=== PATIENT | female | born 1940 | race Caucasian/White ===

== ENCOUNTER 2018-01-09 08:30 | Outpatient (RCR) | payer MEDICARE, SELFPAY ==
--- NOTE | 2017-12-26 14:01 | PTTR_ITS ---
DATE: 12/26/17 SUBJECTIVE: Pt reports being very compliant with HEP; feels there are plenty of exercises at this time. Reports feeling much better overall, indicates that remaining discomfort is posterior shoulder. OBJECTIVE: Manual therapy: ([id number]). With patient in supine, PROM to right shoulder in all planes. Improvement noted vs. last session throughout flexion, rotations. AP, Inferior glides to glenohumeral joint. With pt in sidelying, STM to supraspinatus, infraspinatus, upper trap, rhomboids and lateral border of scapula. High tone, TPs noted in upper trap. With pt in supine, STM, TPR to cervical paraspinals, upper trap, levator scap, scalenes. Pt to follow up with Carole Cabrera DPT in 2 weeks for recheck. Direct treatment time: 30 minutes Total treatment time: 30 minutes
--- NOTE | 2018-01-09 08:30 | PN_ITS ---
DATE: 01/09/18 REFERRING: Chris Ramos MD REFERRING PROVIDER DIAGNOSIS: Bicep tendinopathy and L trochanteric bursitis. PHYSICAL THERAPY DIAGNOSIS: R biceps tendinopathy with scapular dyskinesia and soft tissue dysfunction. REPORTING PERIOD (for progress note and discharge note only): 10/27/17 to SUBJECTIVE: Susan states that her shoulder was feeling much better, although she has had several stresses in her life that has lead to her being less compliant with her HEP. She states her pain seems to have returned. She has not been regular with HEP for the last 2 weeks and during that time has noticed return of symptoms with activity. States that even doing light activity she gets increased pain through the back of the shoulder blade and front of the shoulder itself. Standardized Measures: * Disability Arm/Shoulder/Hand Score (DASH): 29% deficit OBJECTIVE: Posture: Patient demonstrates moderate rounded shoulder, forward head posturing which she self corrects throughout treatment session. No protective positioning of the R UE. Gait: Non-antalgic, non-ataxic. She is independent with bed mobility and transfers without modification. Palpation: Continued tenderness to palpation along the long head of the bicep tendon. She has significant soft tissue tightness noted through the R upper trap with pain reproduction noted here. ROM: Shoulder flexion allows 180 degrees bilaterally, functional IR allows thumb to T6 bilaterally with patient reporting pain through the anterior R shoulder. Passively, ROM is full through all planes of the R shoulder. Treatment: Manual Therapy [id number]: Today's session consisted of brief re- evaluation followed by long discussion regarding need for improved compliance for HEP, Patient received manual mobilization of the R shoulder with passive range through all planes on the R. She received cross friction massage to the long head of bicep tendon, followed by scapular framing techniques on the R. She received cross friction to the posterior capsule, and trigger point release to the R upper trap. She also received trigger point release to the infraspinatus with good tolerance. Post mobilization she has painfree shoulder flexion and IR. Treatment time: 30 mins ASSESSMENT: Patient is a 77 year old female who has been participating in PT intervention with 8 visits over the past 10 weeks. She has been weaning to a more independent HEP although unfortunately her compliance has suffered with this, which she relates to some social stresses. At her last appt, her pain had been extremely well managed with only minimal symptoms, when she was more compliant with her HEP. I had strongly encouraged her to improve compliance, although given her significant soft tissue findings today, I would like to follow up with her in a couple weeks to re-evaluate and progress accordingly, as she will likely require further mobilization as she progresses back to her HEP. G-Codes (add modifier after appropriate code): Patient demonstrates improved functional limitation is in the category of: * x Carrying, moving and handling objects: [id number], based on DASH of 29% deficit, projected goal status remains [id number] * ST: Improve functional reach with patient able to demonstrate consistent episodes of flexion to 135 degrees (MET) 2: Patient able to tolerate introduction of strengthening program without exacerbation of pain symptoms (MET) LT: Well managed pain symptoms allowing patient to transition to independent self management (Progressing towards) 2: Reduce pain with average VAS of less than 3/10. (Progressing towards) 3: Return to premorbid level of function. (Progressing towards) 4: Full painfree functional mobility. (Progressing towards) 5: Independent with self-maintenance program. (Progressing towards) PLAN: Re-check in 2 weeks, will plan to continue with visits 2x a month for an additional 4 weeks, with anticipate discharge to [facility] at that time. SS/dl *Dr. Ramos, please sign this updated progress note if you are in agreement with the continued POC ____ cc: Chris Ramos MD
== END 2018-01-20 23:59 | disposition home or self-care (01) ==
LOC: PT 08:30
PROVIDERS: PCP Internal Medicine; Referring Provider Physician Assistant; Visit Provider Physician Assistant
DX: M75.21 Bicipital tendinitis, right shoulder (principal); M79.89 Other specified soft tissue disorders
CPT/HCPCS: 97140

== ENCOUNTER 2018-02-17 14:39 | Outpatient (CLI) | payer MEDICARE, SELFPAY ==
[2018-02-17 15:02] LABS: HCT 41.8 % (36.0-46.0); HGB 13.2 g/dL (12.0-15.5); Mean Corp. HGB Concentration 31.6 g/dL (32.0-36.0); Mean Corpuscular Hemoglobin 29.7 pg (27.0-33.0); Mean Corpuscular Volume 94.1 fL (80-95); Mean Platelet Volume 10.1 fL (8.0-11.0); Platelet Count 221 x1000/uL (130-400); RBC 4.44 m/cumm (4.00-5.20); RBC Distribution Width 13.8 % (11.7-14.6); White Blood Cell Count 6.72 k/cumm (4.4-10.8)
[2018-02-17 15:41] LABS: ESR 27 MM/HR (0-30)
== END 2018-02-17 14:59 ==
PROVIDERS: PCP Internal Medicine; Visit Provider Internal Medicine
DX: R51 Headache (principal)
CPT/HCPCS: 36415; 85027; 85652

== ENCOUNTER → 2018-03-23 08:15 | Outpatient (BNVA) | payer MEDICARE, SELFPAY | PROVIDERS: PCP Internal Medicine; Visit Provider Psychiatry & Neurology Neurology | DX: R51 Headache (principal); G43.109 Migraine with aura, not intractable, without status migrainosus; M79.2 Neuralgia and neuritis, unspecified; I10 Essential (primary) hypertension | CPT/HCPCS: 99205; 99215 ==

== ENCOUNTER 2018-08-25 10:53 | Emergency (ER) | payer MEDICARE, SELFPAY ==
[2018-08-25 10:57] VITALS: BP 184/81; PULSE 62; RESP 18; TEMP 36.7; O2SAT 99
--- NOTE | 2018-08-25 11:25 | DI.RAD_ITS ---
SYMPTOMS/DIAGNOSIS: S/P CAT BITE, ? FOREIGN BODY VS FRACTURE RIGHT WRIST: Three views were obtained. No fracture is seen. No foreign body identified.
--- NOTE | 2018-08-25 11:26 | W.ED.GENAD ---
Discharge Plan Disposition Patient Disposition: HOME Condition: Stable Discharge Details Chief Complaint: Cellulitis Clinical Impression: Cellulitis, Cat bite Primary Care Provider: Pito Natarajan ED Provider: Joy Roland Home Meds and New Rx's Prescriptions: New amoxicillin-pot clavulanate [Augmentin] 875-125 mg tablet 1 tab PO BID Qty: 10 RF: 0 Continued venlafaxine [Effexor XR] 37.5 mg capsule,extended release 24hr 37.5 mg PO HS Qty: 30 RF: 5 simvastatin 10 MG tablet 10 mg PO DAILY RF: 0 lisinopril 20 MG tablet 20 mg PO DAILY RF: 0 diltiazem HCl 120 MG tablet 120 mg PO DAILY RF: 0 naproxen-diphenhydramine [Aleve PM] 1 EACH tablet 1 ea PO PRN Qty: 1 RF: 0 polyethylene glycol 3350 [Miralax] 17 GM powder in packet 17 gm PO PRN PRNRF: 0 celecoxib 100 MG capsule 100 mg PO BID Qty: 60 RF: 0 acetaminophen [Tylenol] 325 MG tablet 325 mg PO Q4H PRN RF: 0 metronidazole [MetroCream] 45 GM cream 45 gm Topical BID RF: 0 Discharge Instructions Instructions: Cellulitis (ED) Additional Instructions: Take the antibiotics until finished. Keep the area clean and dry. Follow-up with your primary care doctor on Tuesday for reevaluation. Return immediately to the emergency department any worsening or new concerning symptoms such as fever, increased pain, redness or swelling. Discharge Data Discharge Physician: Joy Roland Medical Decision Making 78-year-old female who presents with a mild cellulitis surrounding to puncture wounds from a cat bite sustained last night. Denies fever. Tetanus up-to-date 2014. There is a localized cellulitis surrounding the 2 puncture wounds but no obvious foreign body, abscess or bony injury. Neurovascularly intact. Will obtain a wrist x-ray to rule out foreign body versus fracture. 1200 --x-ray negative for fracture or foreign body. Will give a dose of Augmentin here and prescription for home. She is instructed to follow-up with a primary care doctor for reevaluation on Tuesday and to return here immediately if worse with any signs of fever, increased pain, redness or swelling. HPI General Mode of arrival: ambulatory. Date/Time Provider Initiated Documentation: 08/25/18 11:18. Limitations to Documentation: no limitations. Information obtained by: patient. HPI Narrative: Patient is a 78-year-old female who presents the ED with complaint of redness, swelling and pain near an area of her cat bite since last night. Patient states she was petting her cat when the cat bit her on her right wrist sustaining 2 puncture wounds. She states since then she has developed an area of redness, swelling and pain around the wounds. She is unsure of her tetanus status. She denies an allergy to penicillin. She denies any known foreign body. Related Data Home Medications Medication Instructions Recorded Confirmed simvastatin 10 mg PO DAILY tab-cap 12/20/14 03/23/18 lisinopril 20 mg PO DAILY tab-cap 03/21/15 03/23/18 diltiazem HCl 120 mg PO DAILY 10/01/15 03/23/18 naproxen-diphenhydramine [Aleve PM] 1 ea PO PRN #1 12/10/15 03/23/18 polyethylene glycol 3350 [Miralax] 17 gm PO PRN PRN gm 09/12/17 03/23/18 celecoxib 100 mg PO BID #60 cap 10/26/17 03/23/18 acetaminophen [Tylenol] 325 mg PO Q4H PRN tab-cap 01/18/18 03/23/18 metronidazole [MetroCream] 45 gm TOPICAL BID script 01/18/18 03/23/18 venlafaxine ER 37.5 mg 37.5 mg PO HS #30 cap 03/23/18 03/23/18 capsule,extended release 24 hr amoxicillin-pot clavulanate 1 tab PO BID #10 tab 08/25/18 [Augmentin] Previous Rx's Medication Instructions Recorded celecoxib 100 mg PO BID #60 cap 10/26/17 venlafaxine ER 37.5 mg 37.5 mg PO HS #30 cap 03/23/18 capsule,extended release 24 hr amoxicillin-pot clavulanate 1 tab PO BID #10 tab 08/25/18 [Augmentin] Allergies Allergy/AdvReac Type Severity Reaction Status Date / Time Sulfa (Sulfonamide Allergy Severe Anaphylaxsi Unverified 03/23/18 08:30 Antibiotics) s metoprolol Allergy Unknown UNKNOWN Unverified 03/23/18 08:30 aspirin AdvReac Unknown UNKNOWN Unverified 03/23/18 08:30 ibuprofen AdvReac Unknown UNKNOWN Unverified 03/23/18 08:30 General Stated Complaint: Cellulitis SHYANNE: 4 Review of Systems Review of Systems All systems reviewed & are unremarkable except as noted in HPI and below Constitutional Reports as per HPI, Denies chills and Denies fever(s) Eyes Denies blurry vision ENT Denies dizziness, Denies sore throat and Denies throat swelling Cardiovascular Denies chest pain and Denies dyspnea Respiratory Denies cough and Denies dyspnea Gastrointestinal Denies abdominal pain, Denies diarrhea and Denies vomiting Genitourinary Denies hematuria and Denies dysuria Musculoskeletal Denies back pain and Denies numbness Integumentary/Breasts Denies lesions, Denies rash and Reports other (puncture wounds R wrist) Neurologic Denies dizziness, Denies focal weakness and Denies numbness Allergic/Immunologic Denies throat swelling [facility] Medical History Neuralgia (Chronic) Migraine headache with aura (Chronic) Chronic daily headache (Chronic) Cataracts, bilateral (Acute) Mild cognitive impairment (Acute) GERD (gastroesophageal reflux disease) (Chronic) H/O: hysterectomy (Chronic) Hypertension (Chronic) Osteoarthritis (Chronic) Hyperlipemia Surgical History S/P carpal tunnel release (Acute) S/P cataract extraction (Acute) S/P eye surgery (Acute) Hiatal hernia (Chronic) Cholecystectomy Diaphragmatic Hernia Repair Trigger Finger release Family History Father Heart disease Hypertension Mother Diabetes Heart disease Hypertension Social History Smoking/Tobacco Use Status: Former Tobacco Use Alcohol Intake: never Details: DOES NOT DRINK Drug use: Never Substance use type: does not use Household members: spouse Housing: house 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[employer] What is your relationship status?: Panel score (0-1 are the most socially isolated patients): 1 Seatbelt use: always Do you feel safe at home: Yes Do you feel safe in your relationship?: Yes Exam Const General: cooperative, healthy appearing and no acute distress HENMT Head: normal to inspection Mouth: oral mucosae normal Eyes General: appearance normal, both eyes and all related structures Neck Neck: normal visual inspection Resp Effort & Inspection: normal respiratory effort and able to speak in complete sentences Cardio Rate: regular rate Skin General skin exam: no rashes or lesions noted Neuro General: alert, awake and oriented x3 Motor: muscle tone normal throughout Extrem Elbow/forearm/wrist images: 1. 2mm puncture wound 2. 1 mm puncture wound 3. Area of mild edema, erythema on dorsal medial distal forearm. No induration, fluctuance, drainage or bleeding Other: Right radial and ulnar pulses intact. No bony injury, significant pain with range of motion. Cap refill less than 2 seconds. Psych Appearance: grossly normal Affect: normal affect Course Vital Signs Temperature 98.1 F 08/25/18 10:57 Pulse 62 08/25/18 10:57 Respiratory Rate 18 08/25/18 10:57 Blood Pressure 184/81 H 08/25/18 10:57 Pulse Oximetry 99 08/25/18 10:57 Temperature 98.1 F 08/25/18 10:57 Temperature Source Temporal Artery Scan 08/25/18 10:57 Pulse 62 08/25/18 10:57 Respiratory Rate 18 08/25/18 10:57 Respiratory Effort Non-Labored 08/25/18 10:59 Blood Pressure 184/81 H 08/25/18 10:57 Blood Pressure Position Sitting 08/25/18 10:57 Pulse Oximetry 99 08/25/18 10:57 Oxygen Delivery Method Room Air 08/25/18 10:57 Oxygen Flow Rate 0 08/25/18 10:57 Pain Level 4 08/25/18 10:57
[2018-08-25] MEDS: Acetaminophen 325 MG TAB 650 MG PO (11:32)
[2018-08-25] MEDS: Amoxicillin 875/Clav. 125 TAB PO (12:30)
== END 2018-08-25 12:45 | disposition home or self-care (01) ==
PROVIDERS: Emergency Provider Physician Assistant; PCP Internal Medicine
DX: L03.113 Cellulitis of right upper limb (principal)
CPT/HCPCS: 99283; 73110

== ENCOUNTER → 2018-11-06 08:03 | Outpatient (BNVA) | payer MEDICARE, SELFPAY | PROVIDERS: PCP Internal Medicine; Referring Provider Internal Medicine; Visit Provider Student in an Organized Health Care Education/Training Program | DX: M75.41 Impingement syndrome of right shoulder (principal); M75.21 Bicipital tendinitis, right shoulder | CPT/HCPCS: 99213 ==

== ENCOUNTER 2018-11-08 00:36 | Outpatient (CLI) | payer MEDICARE, SELFPAY ==
--- NOTE | 2018-11-08 09:47 | DI.MRI_ITS ---
SYMPTOM/DIAGNOSIS: RT BICEP TENDONITIS RIGHT SHOULDER MRI: The study was conducted according to the usual protocol. There is an extensive full thickness tear of the supraspinatus tendon with just a few anterior and posterior fibers remaining. The defect measures up to 2.5 cm in transverse diameter with tendon retraction nearly to the level of the glenohumeral joint. Note is made of infraspinatus tendinopathy with irregular intersubstance tearing along the musculotendinous junction. The subscapularis reveals mild tendinopathy. The teres minor is intact. The biceps brachii and long head demonstrate mild tendinopathy superiorly near the glenoid insertion and otherwise intact. SUMMARY: The glenohumeral ligaments are well maintained. Note is made of mild blunting of the superior glenoid labrum suggesting degenerative and chronic tearing. There is mild glenohumeral chondromalacia with mild periarticular osteophyte formation. The glenohumeral joint reveals a small effusion. The muscles are unremarkable. There is a small quantity of fluid present in the subacromial and subdeltoid bursa. Moderate to marked acromioclavicular degenerative changes are demonstrated and productive and cystic changes are noted along the greater tuberosity where marrow edema could also be degenerative. Degenerative changes as described above. There is rotator cuff tendinopathy including extensive full thickness tear of the supraspinatus tendon. A small glenohumeral joint effusion communicating with a small fluid collection in the subacromial and subdeltoid bursa is identified. There is mild bicepital tendinopathy.
--- NOTE | 2018-11-08 16:27 | DI.VRAD_ITS ---
EXAM: MR Right Upper Extremity Joint Without Contrast, Shoulder EXAM DATE/TIME: 11/08/2018 9:40 AM CLINICAL HISTORY: 78 years old, female; Pain; Shoulder; Right; Patient HX: RT bicep tendonitis. TECHNIQUE: Imaging protocol: MR of the Right upper extremity without contrast. Exam focused on the shoulder. COMPARISON: CR RIGHT SHOULDER COMPLETE 04/12/2017 9:10 AM FINDINGS: Limitations: Mild motion. TENDONS: Supraspinatus: Extensive full-thickness tear involves much of the supraspinatus tendon, sparing some of the anterior and posterior fibers, with defect measuring up to 2.5 cm transverse, with tendon retraction nearly to the level of the glenohumeral joint. Infraspinatus: There is infraspinatus tendinopathy with irregular intrasubstance tearing along the musculotendinous junction. Subscapularis: There is mild subscapularis tendinopathy. Teres minor: Unremarkable. No evidence of tear. Biceps brachii, long head: The long head of the biceps tendon demonstrates mild tendinopathy superiorly near its glenoid insertion. It is otherwise intact and is in normal position. LIGAMENTS: Glenohumeral: Unremarkable. Glenoid labrum: Mild blunting of the superior glenoid labrum suggests degeneration and chronic tearing. Cartilage: There is mild glenohumeral chondromalacia with mild periarticular osteophyte formation. Fluid: There is a small effusion of the glenohumeral joint. Muscles: Unremarkable. Soft tissues: Small fluid is present in the subacromial, subdeltoid bursa. Bones/joints: There is moderate to marked acromioclavicular arthrosis. Productive and cystic changes are present along the greater tuberosity, where marrow edema could also be degenerative. IMPRESSION: 1. Degenerative changes as described. 2. Rotator cuff tendinopathy as described, including extensive full thickness tear of the supraspinatus tendon. 3. Small glenohumeral joint effusion communicating with small fluid in the subacromial, subdeltoid bursa. 4. Mild bicipital tendinopathy. Dictated and Authenticated by: Crow Stroud MD. Ordering:YASMINE Perez MD
== END 2018-11-08 00:56 ==
PROVIDERS: PCP Internal Medicine; Visit Provider Student in an Organized Health Care Education/Training Program
DX: M75.21 Bicipital tendinitis, right shoulder (principal); M75.101 Unspecified rotator cuff tear or rupture of right shoulder, not specified as traumatic; M94.211 Chondromalacia, right shoulder; M25.411 Effusion, right shoulder
CPT/HCPCS: 73221

== ENCOUNTER → 2018-11-13 08:26 | Outpatient (BNVA) | payer MEDICARE, SELFPAY | PROVIDERS: PCP Internal Medicine; Referring Provider Internal Medicine; Visit Provider Student in an Organized Health Care Education/Training Program | DX: M75.21 Bicipital tendinitis, right shoulder (principal); M75.101 Unspecified rotator cuff tear or rupture of right shoulder, not specified as traumatic; I10 Essential (primary) hypertension | CPT/HCPCS: 99214 ==

== ENCOUNTER 2019-01-04 00:12 | Outpatient (CLI) | payer MEDICARE, SELFPAY ==
--- NOTE | 2019-01-04 13:42 | MERGE_ITS ---
*[facility]* *[facility]* [address] [place] [address] Date of study: 01/04/2019 Transthoracic Echocardiography M-mode, complete 2D, complete spectral Doppler, and color Doppler *STUDY CONCLUSIONS* Summary: 1. Left ventricle: The cavity size was normal. Wall thickness was increased in a pattern of mild LVH. Systolic function was normal. The estimated ejection fraction was 55-60%. Wall motion was normal; there were no regional wall motion abnormalities. 2. Right ventricle: The cavity size was normal. Systolic function was normal. 3. Left atrium: The atrium was moderately dilated. 4. Aortic valve: Trileaflet; moderately thickened, mildly calcified leaflets. Valve mobility was restricted. Transvalvular velocity was increased. There was moderate stenosis. Peak velocity (S): 3.1m/sec. VTI ratio of LVOT to aortic valve: 0.35. Valve area (VTI): 1cm^2. 5. Inferior vena cava: The vessel was patent and normal in size. The respirophasic diameter changes were in the normal range (greater than or equal to 50%), consistent with normal central venous pressure. *PATIENT PRESENTATION* Height: 157.5cm (62in ) S/D Pressure: 110 / 62 Weight: 83.9kg (184.6lb ) BSA: 1.95m^2 Test start time: 02:10 PM. Test stop time: 03:00 PM. PERFORMING Unknown PERFORMING [facility] CONSULTING Ute Campos Aprn ORDERING Ute Campos Aprn REFERRING Ute Campos Aprn STEAM BOX HAND Kamille Resendez, (R)(CT), CS *PROCEDURE DATA* Procedure information: The patient was identified by two identifiers. This study was interpreted by [facility]. Pertinent images and digital data are archived for permanent storage and are available for subsequent review. Comparison was made to the study of 04/13/2017. Study status: Routine. Transthoracic echocardiography. M-mode, complete 2D, complete spectral Doppler, and color Doppler. A Transthoracic Echocardiogram was performed. Scanning was performed from the parasternal, apical, subcostal, and suprasternal notch acoustic windows. Images were obtained using an [id number] cardiac ultrasound machine. Image quality was adequate. Study completion: The patient tolerated the procedure well. There were no complications. History: PMH: Aortic stenosis i35.0 *CARDIAC ANATOMY* Left ventricle: The cavity size was normal. Wall thickness was increased in a pattern of mild LVH. Systolic function was normal. The estimated ejection fraction was 55-60%. Wall motion was normal; there were no regional wall motion abnormalities. Findings consistent with diastolic dysfunction. There was no evidence of elevated ventricular filling pressure by Doppler parameters. Aortic valve: Trileaflet; moderately thickened, mildly calcified leaflets. Valve mobility was restricted. Doppler: Transvalvular velocity was increased. There was moderate stenosis. There was no significant regurgitation. VTI ratio of LVOT to aortic valve: 0.35. Valve area (VTI): 1cm^2. Indexed valve area (VTI): 0.5cm^2/m^2. Peak velocity ratio of LVOT to aortic valve: 0.35. Valve area (Vmax): 1cm^2. Indexed valve area (Vmax): 0.5cm^2/m^2. Mean velocity ratio of LVOT to aortic valve: 0.36. Valve area (Vmean): 1cm^2. Indexed valve area (Vmean): 0.5cm^2/m^2. Mean gradient (S): 22.7mm Hg. Peak gradient (S): 37.9mm Hg. Aorta: Aortic root: The aortic root was normal in size. Ascending aorta: The ascending aorta was normal in size. Mitral valve: Structurally normal valve. Mobility was not restricted. Doppler: Transvalvular velocity was within the normal range. There was no evidence for stenosis. There was trivial regurgitation. Valve area by pressure half-time: 4.5cm^2. Indexed valve area by pressure half-time: 2.3cm^2/m^2. Peak gradient (D): 3.2mm Hg. Left atrium: The atrium was moderately dilated. Right ventricle: The cavity size was normal. Systolic function was normal. Pulmonic valve: The pulmonary valve appears to be grossly normal. Doppler: Transvalvular velocity was within the normal range. There was no evidence for stenosis. There was trivial regurgitation. Peak gradient (S): 4.8mm Hg. Tricuspid valve: Structurally normal valve. Doppler: Transvalvular velocity was within the normal range. There was no evidence for stenosis. There was mild regurgitation. Pulmonary artery: Poorly visualized. Pulmonary systolic pressure was within the normal range, in the range of 30mm Hg to 35mm Hg. Right atrium: The atrium was dilated. Pericardium: There was no pericardial effusion. Systemic veins: Inferior vena cava: Well visualized. The vessel was patent and normal in size. The respirophasic diameter changes were in the normal range (greater than or equal to 50%), consistent with normal central venous pressure. Baseline ECG: Normal sinus rhythm. Measurements Left ventricle Value 04/13/2017 Reference LV ID, ED, PLAX 4.6 cm 4.4 3.5 - 6.0 LV ID, ES, PLAX 3.0 cm 2.7 2.1 - 4.0 LV PW thickness, ED, PLAX 1.1 cm 1.1 LV end-diastolic volume, 58 ml 66 1-p A2C LV ejection fraction, 1-p 51 % 67 A2C LV end-diastolic volume, 66 ml 73 1-p A4C LV ejection fraction, 1-p 55 % 54 A4C LV e', lateral 0.082 m/sec LV E/e', lateral 11 LV e', medial 0.073 m/sec LV E/e', medial 12 LV e', average 0.077 m/sec LV E/e', average 12 Ventricular septum Value 04/13/2017 Reference IVS thickness, ED, PLAX 1.2 cm 1.1 LVOT Value 04/13/2017 Reference LVOT ID, A-P 1.9 cm 1.9 LVOT area 2.9 cm^2 2.9 LVOT peak velocity, S 1.07 m/sec 0.9 LVOT mean velocity, S 0.83 m/sec LVOT VTI, S 28.8 cm 23.2 LVOT peak gradient, S 4.6 mm Hg LVOT mean gradient, S 3 mm Hg 1.8 Stroke volume (SV), LVOT 83 ml 66 DP Stroke index (SV/bsa), 42 ml/m^2 34 LVOT DP Aortic valve Value 04/13/2017 Reference Aortic valve peak 3.1 m/sec 2.3 velocity, S Aortic valve mean 2.3 m/sec 0 velocity, S Aortic valve VTI, S 81.0 cm Aortic mean gradient, S 22.7 mm Hg 12.2 Aortic peak gradient, S 37.9 mm Hg 21.5 VTI ratio, LVOT/AV 0.35 0.37 Aortic valve area, VTI 1 cm^2 1.1 Velocity ratio, peak, 0.35 0.39 LVOT/AV Aortic valve area, peak 1 cm^2 1.1 velocity Velocity ratio, mean, 0.36 LVOT/AV Aortic valve area, mean 1 cm^2 velocity Aortic valve area/bsa, 0.5 cm^2/m^2 mean velocity Aorta Value 04/13/2017 Reference Aortic root ID, ED 2.7 cm 2.8 Ascending aorta ID, A-P, S 3.3 cm 3.3 Left atrium Value 04/13/2017 Reference LA ID, A-P, ES 4.5 cm LA ID/bsa, A-P (H) 2.3 cm/m^2 <=2.2 LA volume/bsa, ES, 1-p A4C 48 ml/m^2 41 LA volume, ES, 2-p 79 ml LA volume/bsa, ES, 2-p 40 ml/m^2 LA/aortic root ratio 1.7 1.62 Mitral valve Value 04/13/2017 Reference Mitral E-wave peak 0.9 m/sec 0.87 velocity Mitral A-wave peak 0.77 m/sec 0.69 velocity Mitral deceleration time 167 ms 161 150 - 230 Mitral pressure half-time 49 ms 47 Mitral peak gradient, D 3.2 mm Hg 3.1 Mitral E/A ratio, peak 1.17 1.27 Mitral valve area, PHT, DP 4.5 cm^2 4.7 Pulmonary veins Value 04/13/2017 Reference Pulmonary vein peak 0.56 m/sec 0.49 velocity, S Pulmonary vein peak 0.47 m/sec 0.51 velocity, D Pulmonary vein velocity 1.19 0.96 ratio, peak, S/D Pulmonary vein A-wave 0.26 m/sec 0.27 reversal peak velocity Tricuspid valve Value 04/13/2017 Reference Tricuspid regurg peak 2.8 m/sec 2.8 velocity Tricuspid peak RV-RA 31.4 mm Hg 32.2 gradient Right atrium Value 04/13/2017 Reference RA area, ES, A4C (H) 23.2 cm^2 23 8.3 - 19.5 Pulmonic valve Value 04/13/2017 Reference Pulmonic peak gradient, S 4.8 mm Hg 2.4 Legend: (L) and (H) swetha values outside specified reference range. I have personally reviewed the images and have reviewed and edited the reported findings. Electronically signed by Bonnie Staton 01/04/2019 15:38
== END 2019-01-04 00:32 ==
PROVIDERS: PCP Internal Medicine; Visit Provider Nurse Practitioner Primary Care
DX: I35.0 Nonrheumatic aortic (valve) stenosis (principal); I51.7 Cardiomegaly
CPT/HCPCS: 93306

== ENCOUNTER 2019-01-26 10:58 | Outpatient (REF) | payer MEDICARE, SELFPAY ==
[2019-01-26 13:56] LABS: Anion Gap 11.2 mmol/L (3-11); BUN 18 mg/dL (7-18); CO2 26.8 mmol/L (21.0-32.0); CREATININE 1.05 mg/dL (0.55-1.02); Calcium 9.9 mg/dL (8.5-10.1); Calculated LDL 83 mg/dL; Chloride 105 mmol/L (98-107); Cholesterol 209 mg/dL (50-200); Estimated GFR 50.95 (mL/min/1.73m2); Glucose 105 mg/dL (70-100); HDL Cholesterol 69 mg/dL (40-60); Sodium 143 mmol/L (136-145); Triglyceride 287 mg/dL (30-150)
== END 2019-01-26 11:18 ==
LOC: NCHCN 10:58
PROVIDERS: PCP Internal Medicine; Visit Provider Internal Medicine
DX: I10 Essential (primary) hypertension (principal); E78.5 Hyperlipidemia, unspecified; R09.89 Other specified symptoms and signs involving the circulatory and respiratory systems; I35.0 Nonrheumatic aortic (valve) stenosis; G47.33 Obstructive sleep apnea (adult) (pediatric)
CPT/HCPCS: 80048; 80061

== ENCOUNTER 2019-01-31 10:50 | Day surgery (SDC) | payer MEDICARE, SELFPAY ==
[2019-01-31] VITALS (9 sets, daily range): BP systolic 111–163; BP diastolic 46–73; PULSE 57–74; RESP 12–20; TEMP 35.7–36.8; O2SAT 93–98
[2019-01-31] MEDS: Lactated Ringers 1,000 ML 80 ML IV (11:31)
[2019-01-31] MEDS: ceFAZolin 2 GM/50 ML BAG IVPB (13:35)
--- NOTE | 2019-01-31 15:25 | W.PM.DSUDISC ---
Discharge Plan Disposition Patient Disposition: HOME Condition: Good Discharge Details Reason For Visit: (R) RTC TEAR Attending Provider: Chris Ramos Primary Care Provider: Pito Natarajan [place] Meds and New Rx's Prescriptions: New acetaminophen 500 mg tablet 500 mg PO Q6H PRN (Reason: pain) Qty: 60 RF: 3 oxycodone 5 mg tablet 5 mg PO Q6H PRN (Reason: severe post-operative pain) Qty: 12 RF: 0 Continued venlafaxine [Effexor XR] 37.5 mg capsule,extended release 24hr 37.5 mg PO HS Qty: 30 RF: 5 simvastatin 10 MG tablet 20 mg PO DAILY RF: 0 lisinopril 20 MG tablet 20 mg PO HS RF: 0 diltiazem HCl 120 MG tablet 120 mg PO HS RF: 0 Aleve PM 1 EACH tablet 1 ea PO PRN Qty: 1 RF: 0 acetaminophen [Tylenol] 325 MG tablet 325 mg PO Q4H PRN RF: 0 naproxen 500 mg tablet 500 mg PO BID PRN (Reason: pain) Qty: 60 RF: 0 tramadol 50 mg tablet 50 mg PO BID PRN (Reason: pain) Qty: 10 RF: 0 ascorbic acid (vitamin C) 500 mg Capsule 500 mg PO DAILY RF: 0 Discharge Instructions Stand Alone Forms: Rachel casanova/RCR Referrals: Chris Ramos MD [ [facility] STAFF PHYSICIAN] - Equipment/Supplies: Sling Activity:: In sling except for hygiene and pendulums Remove Dressings/Wound Care:: 72 hours Shower/Bathe:: 72 hours Diet:: As Tolerated Discharge Orders Discharge Orders: Discharge Order (Routine); Ordered 01/31/19 Ordered By: Selena Zapata DS: Diagnosis Discharge Diagnosis (1) Right rotator cuff tear: Status: Acute (2) Biceps tendinitis of right shoulder: Status: Acute (3) Subacromial impingement of right shoulder: Status: Acute
--- NOTE | 2019-01-31 21:23 | ROE_ITS ---
Date of service: 01/31/19 Time of Service: 15:49 Operative Note Operative Note DATE OF PROCEDURE: 01/31/19 PRE-OP DIAGNOSIS: Right Rotator Cuff Tear, Right Biceps Tear POST-OP DIAGNOSIS: same PROCEDURE: - Arthroscopic Rotator Cuff Repair - Subacromial Debridement with Acromioplasty SURGEON: Chris Ramos MANUFACTURING PROCESS ENGINEER: Selena Zapata ANESTHESIA: GETA and regional ESTIMATED BLOOD LOSS: 0 PATHOLOGY: none sent COMPLICATIONS: None Patient was transported to: PACU Patient's condition: stable Indications: I have seen Abiola in clinic for a painful shoulder. Pathology was confirmed based on MRI and exam findings. Nonoperative measures were exhausted but disability and pain persisted. I discussed shoulder arthroscopy and procedures. I reviewed the risks of the procedures to include, but not limited to, bleeding, infection, pain, stiffness, damage to nerves or vessels, recurrence, hardware failure, blood clot. Despite these risks, the patient elected to proceed. Findings: A diagnostic arthroscopy was performed with the following findings: - Glenohumeral Joint: No major arthritic changes - Labrum: Minor fraying at the superior labrum - Cuff: Upper subscapularis tear, Complete tear of the supraspinatus and the anterior infraspinatus - Biceps: Partial tearing - Subacromial: Complete rotator cuff tear and large anterolateral spur with a lateral ridge of the acromion Procedure Description: Abiola was greeted in the preoperative holding area where the correct side was identified and marked. The consent was reviewed with the patient and signed. The history and physical was updated. All questions were answered. Abiola was taken back to the PACU for administration of an intrascalene nerve block. She was then taken to the operating room. The patient was placed into the supine position on the operating room table. A general anesthetic was administered. She was then positioned in the beach chair position. All bony prominences were well padded. The head was placed in a foam head buyer tobacco in a neutral position. Prophylactic antibiotics in the form of cefazolin were administered. The right arm/shoulder was then prepped with Chloraprep and draped in a standard fashion with stockinette and shoulder drape. A timeout to confirm correct identity, side and site, procedure, allergies, anesthesia, and medical concerns was performed. The arm was placed into a pneumatic narvaez, [id number]. The shoulder arthroscopy was then performed. The glenohumeral joint was injected with 20 cc of normal saline with good flow back. A standard posterior portal was made and the joint was entered atraumatically with a blunt arthroscope. Once inside we had good visualization of the structures of the glenohumeral joint. An anterior portal was established with spinal needle localization. A 6.5 mm cannula was inserted. A probe was then used to perform a diagnostic arthroscopy. There is noted to be no significant cartilage damage of the glenoid humeral joint. The labrum was frayed superiorly but no gross labral tearing. There were no loose bodies in the inferior pouch. The superior rotator cuff was completely torn with retraction to just lateral of the glenoid. The biceps tendon had some tearing at the level of the groove along with inflammatory changes. The subscapularis was torn superiorly along with the attachment of the coracohumeral ligament. Using electrocautery device and performed a biceps tenotomy. I also uses to help contour the labrum. Shaver was also used to debride any fraying of the labrum into the undersurface of the rotator cuff. Focusing anteriorly, I debrided the tearing of the subscapularis and the exposed footprint on the lesser tuberosity. Using a spinal needle I established an anterolateral portal and placed a 7.5 mL cannula. Using a tissue grasper from this anterolateral portal I was able to mobilize the subscapularis back down on the left tuberosity reapproximating the coracohumeral ligament back to his position over the lateral lesser tuberosity. Therefore, I placed a single 4.5 mm Mitek Healix anchor within the lesser tuberosity. 2 horizontal mattress sutures were then placed with in the subscapularis. This helped reduce the subscapularis back down to the lesser tuberosity. After these were passed they were tied anteriorly. The arthroscope was then inserted into the subacromial space. The 6.5 mm cannula was placed lateral to the CA ligament. There is noted to be a significant anterolateral spike of the acromion which made entering the subacromial space quite difficult from the anterior portal but also laterally with a lateral ridge of her acromion. A posterior lateral viewing portal was then established. A complete bursectomy is performed anteriorly, posteriorly, and laterally with electrocautery and shaver. This had excellent exposure of the rotator cuff. The bursal side rotator cuff was inspected and showed a reverse L type rotator cuff tear involving all the supra spinatus and a portion of infraspinatus. There was a large anterolateral spur. Tissue liberator was used to help free up any attachments between the rotator cuff and the labrum and superior glenoid. 2 medial anchors were then placed. These were Depuy Mitek 4.5 mm Healix anchors. Using a retrograde suture passer then placed 4 horizontal mattress sutures into the tendon. There is a focus to move posterior to anterior to reduce the reverse L-type tear back onto the footprint. Once these were placed they were tied sequentially. This was done using standard arthroscopic knot tying techniques and this adequately reduced the tendon back down to the footprint. There is no exposed joint at this time. There was a free edge of tendon remaining so therefore I plan to place lateral row. One suture limb from each suture was pulled into a lateral anchor and 2 lateral anchors were placed. These are tension in place appropriately so that the suture bridge was laying on top of the rotator cuff free edge. All the sutures were cut. A 5.0 mm earnest was then inserted from the posterior portal. The anterolateral corner of the acromion was then resected in plane with the posterior slope of the acromion. The scope equipment was removed from the shoulder. Excess fluid was evacuated. The portal sites were closed with 3-0 Monocryl. The wounds were dressed with Steri-Strips, 4 x 4's, ABDs, Medipore tape. A sling was applied. The patient tolerated the procedure well and was returned to the Same Day Surgery area in a stable condition suffering no known complication.
== END 2019-01-31 18:32 | disposition home or self-care (01) ==
PROVIDERS: PCP Internal Medicine; Visit Provider Student in an Organized Health Care Education/Training Program
PROC: (CPT 29827; principal; 2019-01-31 13:30)
DX: M75.21 Bicipital tendinitis, right shoulder (principal); M75.121 Complete rotator cuff tear or rupture of right shoulder, not specified as traumatic; G89.18 Other acute postprocedural pain; I10 Essential (primary) hypertension; I35.0 Nonrheumatic aortic (valve) stenosis
CPT/HCPCS: 29827; 29826; C1713; J0690; J2250; J3010; L3670

== ENCOUNTER → 2019-02-12 12:33 | Outpatient (BNVA) | payer MEDICARE, SELFPAY | PROVIDERS: PCP Internal Medicine; Referring Provider Internal Medicine; Visit Provider Student in an Organized Health Care Education/Training Program | DX: Z47.89 Encounter for other orthopedic aftercare (principal); M25.511 Pain in right shoulder; I10 Essential (primary) hypertension ==

== ENCOUNTER → 2019-03-12 09:47 | Outpatient (BNVA) | payer MEDICARE, SELFPAY | PROVIDERS: PCP Internal Medicine; Referring Provider Internal Medicine; Visit Provider Student in an Organized Health Care Education/Training Program | DX: Z47.89 Encounter for other orthopedic aftercare (principal); M25.511 Pain in right shoulder; I10 Essential (primary) hypertension ==

== ENCOUNTER → 2019-04-23 08:26 | Outpatient (BNVA) | payer MEDICARE, SELFPAY | PROVIDERS: PCP Internal Medicine; Referring Provider Internal Medicine; Visit Provider Student in an Organized Health Care Education/Training Program | DX: Z47.89 Encounter for other orthopedic aftercare (principal); M25.511 Pain in right shoulder ==

== ENCOUNTER 2019-06-01 12:50 | Outpatient (REF) | payer MEDICARE, SELFPAY ==
[2019-06-01 20:57] LABS: Calculated LDL 101 mg/dL; Cholesterol 213 mg/dL (<200); HDL Cholesterol 82 mg/dL (40-60); Triglyceride 150 mg/dL (<150)
== END 2019-06-01 13:10 ==
LOC: NCHCN 12:50
PROVIDERS: PCP Internal Medicine; Visit Provider Internal Medicine
DX: E78.5 Hyperlipidemia, unspecified (principal)
CPT/HCPCS: 80061

== ENCOUNTER → 2019-07-02 09:31 | Outpatient (BNVA) | payer MEDICARE, SELFPAY | PROVIDERS: PCP Internal Medicine; Referring Provider Internal Medicine; Visit Provider Student in an Organized Health Care Education/Training Program | DX: Z47.89 Encounter for other orthopedic aftercare (principal) | CPT/HCPCS: 99212 ==

== ENCOUNTER 2019-07-15 15:26 | Emergency (ER) | payer MEDICARE, SELFPAY ==
[2019-07-15 15:29] VITALS: BP 190/73; PULSE 73; RESP 17; TEMP 37.1; O2SAT 98
[2019-07-15 15:50] LABS: Bilirubin Negative (Negative); Blood Large (Negative); Clarity Cloudy (Clear); Glucose Negative (Negative); Ketones Negative (Negative); Leukocyte Esterase Small (Negative); Nitrite Negative (Negative); pH 7.5 (5-8)
--- NOTE | 2019-07-15 15:54 | ED.GENADUL_ITS ---
Discharge Plan Discharge Details Chief Complaint: Urinary Primary Care Provider: Pito Natarajan ED Provider: Derek Quevedo Home Meds and New Rx's Prescriptions: No Action simvastatin 10 MG tablet 20 mg PO DAILY RF: 0 lisinopril 20 MG tablet 20 mg PO HS RF: 0 diltiazem HCl 120 MG tablet 120 mg PO HS RF: 0 Aleve PM 1 EACH tablet 1 ea PO PRN Qty: 1 RF: 0 acetaminophen [Tylenol] 325 MG tablet 325 mg PO Q4H PRN RF: 0 naproxen 500 mg tablet 500 mg PO BID PRN (Reason: pain) Qty: 60 RF: 0 ascorbic acid (vitamin C) 500 mg Capsule 500 mg PO DAILY RF: 0 acetaminophen 500 mg tablet 500 mg PO Q6H PRN (Reason: pain) Qty: 60 RF: 3 Medical Decision Making This is a delightful 79-year-old female presents from home with day 2 of urinary frequency, urgency, burning. She is afebrile, slightly hypertensive with a history of same. Her exam is reassuring. Urinalysis consistent with urinary tract infection. I will place her on a course of antibiotics. Discussed with her the use of Pyridium. She is stable and improving. Lab Data Lab results reviewed: Yes I reviewed the patient's lab results. Labs: Laboratory Results - last 24 hr 07/15/19 15:40 Urine Color Yellow Urine Clarity Cloudy Urine pH 7.5 Ur Specific [place] 1.020 Urine Protein 100 H Urine Ketones Negative Urine Blood Large H Urine Nitrite Negative Urine Bilirubin Negative Urine Urobilinogen 2.0 H Ur Leukocyte Esterase Small H Urine RBC >50 H Urine WBC 20-50 H Ur Epithelial Cells Negative Urine Crystals Negative Urine Bacteria Rare Urine Mucus Negative Urine Other Few transitional Ur Culture Indicated? Yes Urine Glucose Negative HPI General Mode of arrival: ambulatory . Date/Time Provider Initiated Documentation: 07/15/19 15:30 . Limitations to Documentation: no limitations . Information obtained by: patient and family . History of Present Illness 79 year old F presents to the emergency department with the chief complaint of 2 days urinary urgency, frequency, burning, and is localized to the pelvis. Patient reports no radiation. Patient started experiencing this day(s) and it has been constant. No relieving factors improve symptom(s), No exacerbating factors reported . Patient notes denies fever/chills and nausea/vomiting. Patient did receive the following treatments prior to a rrival, none Related Data Home Medications Medication Instructions Recorded Confirmed simvastatin 20 mg PO DAILY tab-cap 12/20/14 07/15/19 lisinopril 20 mg PO HS tab-cap 03/21/15 07/15/19 diltiazem HCl 120 mg PO HS 10/01/15 07/15/19 Aleve PM 1 ea PO PRN #1 12/10/15 07/02/19 acetaminophen [Tylenol] 325 mg PO Q4H PRN tab-cap 01/18/18 07/02/19 naproxen 500 mg tablet 500 mg PO BID PRN #60 tab 12/05/18 07/02/19 ascorbic acid (vitamin C) 500 mg PO DAILY 01/30/19 07/02/19 acetaminophen 500 mg PO Q6H PRN #60 tab 01/31/19 07/15/19 Previous Rx's Medication Instructions Recorded naproxen 500 mg tablet 500 mg PO BID PRN #60 tab 12/05/18 acetaminophen 500 mg PO Q6H PRN #60 tab 01/31/19 Allergies Allergy/AdvReac Type Severity Reaction Status Date / Time Sulfa (Sulfonamide Allergy Severe Anaphylaxsi Unverified 07/15/19 15:34 Antibiotics) s metoprolol Allergy Unknown UNKNOWN Unverified 07/15/19 15:34 aspirin AdvReac Unknown UNKNOWN Unverified 07/15/19 15:34 ibuprofen AdvReac Unknown UNKNOWN Unverified 07/15/19 15:34 General Stated Complaint: Urinary SHYANNE: 4 Review of Systems Narrative: No vomiting, no back pain, no noted fever. 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 Pleasant, well groomed, interactive. HEAD: Normocephalic, atraumatic ENT: Mucous membranes moist, oropharynx unremarkable, External ear exam unremarkable EYES: PERRL, EOMI NECK: Full ROM, no STEPH, no menigismus CHEST/RESP: Nontender, clear to auscultation bilateral, no wheeze/rhonchi/rales CARDIOVASCULAR: RRR, no murmur, rub eyal. 2+ Rad pulse bilateral ABDOMEN: Soft, nontender, no mass. +Bowel sounds. No significant flank tenderness on percussion. EXT: Full ROM, no edema, no rash Neuro: Grossly normal neurologic exam, conversant, interactive. Psych: Speech fluent, thoughts congruent, affect normal Course Vital Signs Vital signs: Vital Signs Temperature 37.1 C 07/15/19 15:29 Pulse 73 07/15/19 15:29 Respiratory Rate 17 07/15/19 15:29 Blood Pressure 190/73 H 07/15/19 15:29 Pulse Oximetry 98 07/15/19 15:29 Temperature 37.1 C 07/15/19 15:29 Temperature Source Skin 07/15/19 15:29 Pulse 73 07/15/19 15:29 Respiratory Rate 17 07/15/19 15:29 Respiratory Effort 07/15/19 15:35 Blood Pressure 190/73 H 07/15/19 15:29 Blood Pressure Position Sitting 07/15/19 15:29 Pulse Oximetry 98 07/15/19 15:29 Oxygen Delivery Method Room Air 07/15/19 15:29 Oxygen Flow Rate 0 07/15/19 15:29 Pain Level 10 07/15/19 15:43
[2019-07-15 15:59] LABS: Bacteria Rare HPF (Negative); C & S Indicated? Yes; Crystals Negative HPF (Negative); Epithelial Cells Negative HPF (Negative); Mucus Negative (Negative); Other Cells Few Transitional (Negative); RBC >50 HPF (0-2); WBC 20-50 HPF (0-5)
[2019-07-15] MEDS: Cephalexin 500 MG CAP PO (16:08)
[2019-07-15] MEDS: Phenazopyridine 100 MG TAB, 2 TABS/BTL PO (16:09)
== END 2019-07-15 16:20 | disposition home or self-care (01) ==
PROVIDERS: Emergency Provider Emergency Medicine; PCP Internal Medicine
DX: R35.0 Frequency of micturition (principal); N39.0 Urinary tract infection, site not specified; I10 Essential (primary) hypertension
CPT/HCPCS: 87077; 99283; 81003; 81015; 87086; 87186

== ENCOUNTER 2019-09-26 09:39 | Outpatient (CLI) | payer MEDICARE, SELFPAY ==
[2019-09-27 15:52] LABS: COVID-19 RT-PCR UVMMC Result Negative (Negative)
== END 2019-09-26 09:59 ==
PROVIDERS: PCP Internal Medicine; Visit Provider Internal Medicine
DX: Z03.818 Encounter for observation for suspected exposure to other biological agents ruled out (principal)
CPT/HCPCS: U0003

== ENCOUNTER 2019-10-01 12:06 | Outpatient (REF) | payer MEDICARE, SELFPAY ==
[2019-10-01 21:11] LABS: Abs Immature Grans 0.01 k/cumm (0.0-0.09); Absolute Basophil Count 0.01 k/cumm (0.0-0.2); Absolute Eosinophil Count 0.05 k/cumm (0.0-0.7); Absolute Lymphocyte Count 2.17 k/cumm (1.2-3.4); Absolute Monocyte Count 0.57 k/cumm (0.11-0.7); Absolute Neutrophil Count 3.02 k/cumm (1.2-6.7); Basophils % 0.2; Eosinophils % 0.9; HCT 43.6 % (36.0-46.0); HGB 13.9 g/dL (12.0-15.5); Immature Grans % 0.2 %; Lymphocytes % 37.2; Mean Corp. HGB Concentration 31.9 g/dL (32.0-36.0); Mean Corpuscular Hemoglobin 29.5 pg (27.0-33.0); Mean Corpuscular Volume 92.6 fL (80-95); Mean Platelet Volume 10.9 fL (8.0-11.0); Monocytes % 9.8; Neutrophils % 51.7; Platelet Count 263 x1000/uL (130-400); RBC 4.71 m/cumm (4.00-5.20); RBC Distribution Width 14.3 % (11.7-14.6); White Blood Cell Count 5.83 k/cumm (4.4-10.8)
[2019-10-01 21:31] LABS: ALT 26 U/L (14-59); AST 22 U/L (15-37); Albumin 3.9 g/dL (3.4-5.0); Alkaline Phosphatase 109 U/L (46-116); Anion Gap 5.5 mmol/L (3-11); BUN 23 mg/dL (7-18); Bilirubin, Total 0.4 mg/dL (0.2-1.0); CO2 29.5 mmol/L (21.0-32.0); CREATININE 1.18 mg/dL (0.55-1.02); Calcium 9.6 mg/dL (8.5-10.1); Chloride 103 mmol/L (98-107); Creatine Kinase 130 U/L (26-192); Estimated GFR 44.42 (mL/min/1.73m2); Glucose 96 mg/dL (74-106); NT-proBNP 290 pg/mL (<300); Potassium 4.4 mmol/L (3.5-5.1); Sodium 138 mmol/L (136-145); TSH 2.11 uIU/mL (0.36-3.74); Total Protein 7.4 g/dL (6.4-8.2)
[2019-10-01 21:54] LABS: ESR 35 mm/hr (0-30)
== END 2019-10-01 12:26 ==
LOC: NCHCN 12:06
PROVIDERS: PCP Internal Medicine; Visit Provider Internal Medicine
DX: R53.83 Other fatigue (principal); R06.09 Other forms of dyspnea; G43.909 Migraine, unspecified, not intractable, without status migrainosus; M79.10 Myalgia, unspecified site
CPT/HCPCS: 80053; 82550; 85652; 83880; 84443; 85025

== ENCOUNTER 2019-12-26 03:12 | Outpatient (CLI) | payer MEDICARE, SELFPAY ==
--- NOTE | 2019-12-26 10:26 | DI.US_ITS ---
APPROVED REPORT EXAM: Comprehensive 2D, Doppler, and color-flow Echocardiogram Patient Location: Out-Patient Environmental Services Specialist: Annette Beck RDCS (AE) Indications: Aortic stenosis Other Information Study Quality: Adequate Conclusion Left Ventricle : The left ventricle is normal size. The left ventricular systolic function is normal. The left ventricular ejection fraction is within the normal range. There is normal left ventricular wall thickness. There is normal LV segmental wall motion. There is evidence of elevated filling press ures. LVEF is 60%. Right Ventricle : The right ventricle is normal size. The right ventricular systolic function is norm al. The RVSP is 29.6mmHg. Atria : Left atrium is moderately dilated. Right atrium is mildly dilated. Aortic Valve : Aortic valve is calcified. Peak aortic valve gradient is 29.2mmHg. Highest mean aortic valve gradient is 18.1mmHg. Calculated TERESA by the continuity equation is 1.10cm2. Mild to moderate a ortic stenosis. No aortic regurgitation is present. Mitral Valve : Mild mitral annular calcification. No evidence of mitral valve stenosis. Mild mitral r egurgitation. Great Vessels : The aortic root is normal in size. IVC is normal in size and collapses >50% with insp iration. The ascending aorta is mildly dilated. Aortic arch is normal in caliber. Compared to study from 01/04/2019, there is no significant change. Wall motion Left Ventricle The left ventricle is normal size. The left ventricular systolic function is normal. The left ventric ular ejection fraction is within the normal range. There is normal left ventricular wall thickness. T here is normal LV segmental wall motion. There is evidence of elevated filling pressures. There is no ventricular septal defect visualized. LVEF is 60%. Right Ventricle The right ventricle is normal size. The right ventricular systolic function is normal. The RVSP is 29 .6mmHg. Atria Left atrium is moderately dilated. Right atrium is mildly dilated. The interatrial septum is intact w ith no evidence for an atrial septal defect. Aortic Valve Aortic valve is calcified. Peak aortic valve gradient is 29.2mmHg. Highest mean aortic valve gradient is 18.1mmHg. Calculated TERESA by the continuity equation is 1.10cm2. Mild to moderate aortic stenosis. No aortic regurgitation is present. Mitral Valve Mild mitral annular calcification. No evidence of mitral valve stenosis. Mild mitral regurgitation. Tricuspid Valve The tricuspid valve is normal in structure. There is no tricuspid valve stenosis. Mild to moderate tr icuspid regurgitation. Pulmonic Valve The pulmonary valve is normal in structure. There is no pulmonic valvular stenosis. Trace pulmonic re gurgitation. Great Vessels The aortic root is normal in size. The ascending aorta is mildly dilated. Aortic arch is normal in ca liber. IVC is normal in size and collapses >50% with inspiration. Pericardium There is no pericardial effusion. 2D Dimensions IVSD d PLAX 0.88 cm F: 0.6-1.0 LV Vol A2C d MOD 121.6 mL LVPW d PLAX 0.87 cm F: 0.6 - 1.0 LV Vol A4C d MOD 84.8 mL LVID d PLAX 4.83 cm F: 3.8 - 5.2 LA vol/ BSA A2C s A-L 42.6 mL/m2 LVDs 3.15 cm F: 2.2 - 3.5 LA vol/ BSA A4C s A-L 30.6 mL/m2 Ao Root d 2.52 cm F: 2.7 - 3.3 LA Vol/ BSA Biplane s A-L 36.6 mL/m2 RA Area A4C 13.48 cm2 LA Area A4C s MOD 19.82 cm2 RA Vol/ BSA A4C s A-L 17.8 mL/m2 LA Area A2C s MOD 23.72 cm2 Ao Asc Diam d 3.39 cm F: 2.3 - 3.1 LV EF A4C MOD 60.5 % LV EF Teichholz 63.0 % LV EF A2C MOD 59.0 % LVEF (Turk's) 56.78 % F: 54 - 74 LV EF Biplane MOD 56.8 % LV Volume 79.91 mL F: 46 - 106 SV 59.14 mL LV Volume Index 42.73 mL/m2 F: 29 - 61 SV Index 31.62 mL/m2 LV Vol Biplane MOD 104.1 mL FS 34.10 % M-Mode TAPSE 2.02 cm (M/F) >1.7 LV Diastology MV E' medial 0.081 (>0.07 m/s) E/A Ratio 1.2 LV E/e MED 11.35 (<14) MV E Vmax 0.93 (0.4-1.3 m/s) MV E' lateral 0.082 (>0.1 m/s) MV A Vmax 0.75 (0.4-1.3 m/s) LV E/e LAT 11.25 (<14) MV E/A Ratio 1.20 MV E/E' medial 11.40 MV E/E' lateral 11.29 Aortic Valve LVOT Area 2.72 cm2 AoV Area Vmax 1.10 cm2 LVOT Vmax 1.09 m/s AoV Area/ BSA (Vmax) 0.59 cm2/m2 LVOT Mean Bright. 0.73 m/s TERESA Mean Bright. 0.99 cm2 LVOT Peak Grad 4.8 mmHg TERESA Mean Bright. Index 0.53 cm2/m2 LVOT Mean Grad 2.5 mmHg LVOT VTI 0.249 m LVOT Diam s 1.85 cm AoV Vmax 2.70 m/s Velocity Ratio 0.40 AoV Mean Bright. 2.01 m/s AoV Peak Grad 29.2 mmHg LVOT SV 67.89 mL AoV Mean Grad 18.1 mmHg AoV VTI 0.643 m AoV Area VTI 1.06 cm2 AoV Area/ BSA (VTI) 0.56 cm/m2 Mitral Valve MV DT 200 (160-240 msec) MR Vmax 4.13 m/s MV PHT 58 msec MR VTI 1.568 m MV Area PHT 3.79 cm2 MR Peak Grad 68.3 mmHg MV VTI 0.395 m MR Mean Grad 50.6 mmHg MV Area VTI 1.72 (4.0-6.0 cm2) Pulmonary Valve PV Vmax 1.13 (0.5-1.5 m/s) RVOT Peak Gr. 2.79 mmHg PV Peak Grad 5.1 mmHg RVOT Mean Gr. 1.40 mmHg PV Mean Grad 2.4 mmHg RVOT VTI 0.202 m PV VTI 0.235 m RVOT Vmax 0.84 m/s Tricuspid Valve TR Peak Grad 26.6 mmHg TR Vmax 2.58 m/s RA Pressure 3.00 mmHg RVSP (TR) 29.6 mmHg
== END 2019-12-26 03:32 ==
PROVIDERS: PCP Internal Medicine; Visit Provider Internal Medicine
DX: I08.0 Rheumatic disorders of both mitral and aortic valves (principal); I77.810 Thoracic aortic ectasia
CPT/HCPCS: 93306

== ENCOUNTER 2020-03-31 00:57 | Outpatient (CLI) | payer MEDICARE, SELFPAY ==
--- NOTE | 2020-03-31 | DI.US_ITS ---
EXAM: US LOWER EXTREMITY VENOUS LT CLINICAL HISTORY: LT LEG PERIPHERAL EDEMA,R60.9, ? BAKERS CYST OR CHRONIC DVT. TECHNIQUE: Ultrasound performed using standard protocol. COMPARISON: US US ECHOCARDIOGRAM from 12/26/2019 FINDINGS: Duplex venous ultrasound was performed according to the usual protocol. The deep veins are freely com pressible throughout and there is normal flow augmentation with manual calf compression. 2D and Doppl er evaluation are unremarkable. IMPRESSION: No evidence of deep venous thrombosis of the left lower extremity. DATA REPOSITORY:
== END 2020-03-31 01:17 ==
PROVIDERS: PCP Internal Medicine; Visit Provider Internal Medicine
DX: R60.9 Edema, unspecified (principal)
CPT/HCPCS: 93971

== ENCOUNTER 2020-05-20 22:37 | Outpatient (REF) | payer MEDICARE, SELFPAY ==
[2020-05-22 03:39] LABS: COVID-19 RT-PCR UVMMC Result Negative (Negative)
== END 2020-05-20 22:57 ==
LOC: NCHCN 22:37
PROVIDERS: PCP Internal Medicine; Visit Provider Internal Medicine
DX: Z20.828 Contact with and (suspected) exposure to other viral communicable diseases (principal)
CPT/HCPCS: U0003

== ENCOUNTER 2020-10-13 10:30 | Outpatient (CLI) | payer MEDICARE, SELFPAY ==
--- NOTE | 2020-10-13 | DI.RAD_ITS ---
Exam(s) XR HIP RT COMPLETE AP PELVIS EXAM: XR HIP RT COMPLETE AP PELVIS CLINICAL HISTORY: OSTEOARTHRITIS HIPS YARI, M16.0. TECHNIQUE: 2D digital imaging was performed. COMPARISON: Prior x-rays March 2017 there is no evidence of pelvic or hip fracture. Some degener ative change in the right hip joint is noted with slight further progression from 2017. No osseous l esions. Sacroiliac joints appear unremarkable. FINDINGS: IMPRESSION: DATA REPOSITORY: RADIATION DOSE DELIVERED:
--- NOTE | 2020-10-13 | DI.RAD_ITS ---
Exam(s) XR KNEE RT 3V AP,LAT,HARDIK EXAM: XR KNEE RT 3V AP,LAT,HARDIK CLINICAL HISTORY: RT KNEE JOINT PAIN, M25.561. TECHNIQUE: 2D digital imaging was performed. COMPARISON: CR Left Knee - 2 Views from 12/20/2014 FINDINGS: There is no evidence of fracture or prominent joint effusion. There is some narrowing of the medial joint space and small marginal osteophytes. Lateral joint space exhibits normal height. No obvious degenerative changes in the patellofemoral compartment, as seen on this three view study. Bone density is age-appropriate. IMPRESSION: DATA REPOSITORY: RADIATION DOSE DELIVERED:
== END 2020-10-13 10:50 ==
PROVIDERS: PCP Internal Medicine; Visit Provider Family Medicine
DX: M25.561 Pain in right knee (principal); M16.0 Bilateral primary osteoarthritis of hip
CPT/HCPCS: 73562; 73502

== ENCOUNTER 2020-10-24 09:44 | Outpatient (REF) | payer MEDICARE, SELFPAY ==
--- OUTSIDE RECORDS SUMMARY | 2020-10-24 09:47 | XMS_ITS ---
:1940 Author Care Team Providers Name Role Phone ITALO GILLIS MD Primary Care Provider [phone] [facility] OTHER [phone] Allergies Code Code System Name Reaction Severity Status Onset 1191 RxNorm Aspirin ? ? Active ? 00799 RxNorm Gabapentin ? ? Active ? 6740 RxNorm Ibuprofen ? ? Active ? 6908 RxNorm Metoprolol ? ? Active ? 524122 RxNorm Pravachol ? ? Active ? Sulfa ? ? Active ? (Sulfonamide Antibiotics) Medications Name Status Start Date Stop Date ? ? amoxicillin 875 mg-potassium Completed ? clavulanate 125 mg tablet celecoxib 100 mg capsule Completed ? 019 diltiazem 120 mg tablet Active ? Not avai lable Take 1 tablet every day by oral route. ferrous sulfate 325 mg (65 mg iron) tablet Completed ? 02/22/2019 Take 1 tablet every day by oral route for 90 days. fluticasone propionate 50 mcg/actuation nasal spray,suspension A ctive ? Not available 2 sprays each nostril daily gabapentin 100 mg capsule Completed ? 2018 lisinopril 20 mg tablet Active ? Not avai lable MetroCream 0.75 % topical Active ? Not av ailable APPLY A THIN LAYER TO THE AFFECTED AREA (S) BY TOPICAL ROUTE 2 TIMES PER DAY IN THE MORNING AND EVENING naproxen 500 mg tablet Completed ? 9 oxycodone 5 mg tablet Completed ? 04/13/2019 simvastatin 10 mg tablet Completed ? 019 Take 1 tablet every day by oral route. simvastatin 20 mg tablet Active ? Not cathy ilable tramadol 50 mg tablet Completed ? 04/13/2019 venlafaxine ER 37.5 mg capsule,extended Completed ? 12/11/2018 release 24 hr Vitamin C 500 mg tablet Active ? Not avai lable Take 1 tablet every day by oral route for 90 days. Problems Name Status Onset Date Source ? Restless Legs Active 12/13/2018 ? Snoring Active 12/13/2018 ? Posterior Rhinorrhea Active 07/13/2019 ? Adenomatous Polyp of Colon Active ? ? Hyperlipidemia Active ? ? Overweight Active ? ? Obstructive Sleep Apnea Syndrome Active ? ? Minimal Cognitive Impairment Active ? ? Migraine Active ? ? Facial Neuralgia Active ? ? Vitreomacular Traction Syndrome Active ? ? Hypertensive Disorder Active ? ? Varicose Veins of Lower Extremity Active ? ? Gastroesophageal Reflux Disease Active ? ? Diverticular Disease Active ? ? Chronic Constipation Active ? ? Rosacea Active ? ? Osteoarthritis Active ? ? Arthritis Active ? ? Shoulder Pain Active ? ? Hip Pain Active ? ? Knee Pain Active ? ? Low Back Pain Active ? ? Ganglion Cyst Active ? ? Muscle Pain Active ? ? Osteopenia Active ? ? Syncope Active ? ? Carotid Bruit Active ? ? Chest Pain Active ? ? Procedures None recorded. Results Lab Results Date Name Specimen Result Interpretation Description Value Range Status Address ? 12/13/2018 Ferritin, S - Ferr 29 NG/mL 11-264 Final N [facility] [place] Serum or NG/mL Hospital Lab Plasma (Internal) : [address] Past Encounters 10/24/2019 Obstructive Sleep Apnea Syndrome Antonette Barboza [facility]: [address], [place], [place] [phone], Ph. 07/13/2019 Obstructive Sleep Apnea Syndrome; Procedures Nurse ior Rhinorrhea Antonette Barboza [facility]: [address], [place] [phone], Ph. Social History Tobacco Smoking Status Former Smoker (1 PPD) Notes: start ed smoking at age 19. quit 1984 Vaccine List None recorded. Plan of Care Reminders Provider Appointments None ? ? recorded. Lab None ? ? recorded. Referral None ? ? recorded. Procedures None ? ? recorded. Surgeries None ? ? recorded. Imaging None ? ? recorded. Vitals 10/24/2019 10:15AM Office 30 Height Weight BMI Blood Pressure 157.48 cm 89.72 kg 36.2 kg/m2 148/93 mm[Hg] 07/13/2019 11:00AM Office 30 Height Weight BMI Blood Pressure 157.48 cm 81.65 kg 32.9 kg/m2 147/90 mm[Hg] 04/13/2019 11:00AM Office 30 Height Weight BMI Blood Pressure 157.48 cm 81.65 kg 32.9 kg/m2 182/92 mm[Hg] 02/22/2019 01:45PM Office 30 Height Weight BMI Blood Pressure 157.48 cm 85.32 kg 34.4 kg/m2 130/72 mm[Hg] 12/25/2018 08:00AM Office 30 Height Weight BMI Blood Pressure 157.48 cm 85.73 kg 34.6 kg/m2 150/80 mm[Hg] 12/13/2018 09:15AM New Patient 45 Height Weight BMI Blood Pressure 157.48 cm 86.09 kg 34.7 kg/m2 152/80 mm[Hg]
[2020-10-24 13:12] LABS: Anion Gap 7.3 mmol/L (3-11); BUN 27 mg/dL (7-18); CO2 28.7 mmol/L (21.0-32.0); CREATININE 1.2 mg/dL (0.55-1.02); Calcium 9.9 mg/dL (8.5-10.1); Chloride 107 mmol/L (98-107); Estimated GFR 43.45 (mL/min/1.73m2); Glucose 97 mg/dL (74-106); Potassium 5.8 mmol/L (3.5-5.1); Sodium 143 mmol/L (136-145)
== END 2020-10-24 09:45 | disposition home or self-care (01) ==
LOC: NCHCN 09:44
PROVIDERS: PCP Internal Medicine; Visit Provider Internal Medicine
DX: I10 Essential (primary) hypertension (principal)
CPT/HCPCS: 80048

== ENCOUNTER 2020-11-03 18:28 | Outpatient (REF) | payer MEDICARE, SELFPAY ==
[2020-11-03 21:23] LABS: Anion Gap 9.1 mmol/L (3-11); BUN 21 mg/dL (7-18); CO2 27.9 mmol/L (21.0-32.0); CREATININE 1.3 mg/dL (0.55-1.02); Calcium 9.4 mg/dL (8.5-10.1); Chloride 107 mmol/L (98-107); Estimated GFR 39.61 (mL/min/1.73m2); Glucose 120 mg/dL (74-106); Sodium 144 mmol/L (136-145)
== END 2020-11-03 18:29 | disposition home or self-care (01) ==
LOC: NCHCN 18:28
PROVIDERS: PCP Internal Medicine; Visit Provider Family Medicine
DX: E87.5 Hyperkalemia (principal)
CPT/HCPCS: 80048

== ENCOUNTER → 2020-12-01 14:31 | Outpatient (BNVA) | payer MEDICARE, SELFPAY | PROVIDERS: PCP Internal Medicine; Referring Provider Internal Medicine; Visit Provider Student in an Organized Health Care Education/Training Program | DX: M17.11 Unilateral primary osteoarthritis, right knee (principal); M79.604 Pain in right leg | CPT/HCPCS: 20610; J1040 ==

== ENCOUNTER 2021-01-20 01:43 | Outpatient (CLI) | payer MEDICARE, SELFPAY ==
--- NOTE | 2021-01-20 | DI.US_ITS ---
Exam(s) US LOWER EXTREMITY VENOUS LT EXAM: US LOWER EXTREMITY VENOUS LT CLINICAL HISTORY: PERIPHERAL EDEMA, R60.9,SUPERFICIAL PHLEBITIS OF LT LEG,I80.00, ? DVT TECHNIQUE: Left lower extremity venous ultrasound performed using grayscale, color-flow, and spectra l Doppler analysis. COMPARISON: No exams were available for comparison FINDINGS: The left common femoral, femoral and popliteal veins demonstrate normal compressibility, augmentation , and color Doppler. The posterior tibial veins are patent. There is occlusive thrombus seen in the proximal left peroneal vein. It measures 2.3 cm in length. The saphenofemoral junction is unremarka ble. There is no evidence of a Winslow cyst. The soft tissues are unremarkable. IMPRESSION: Occlusive thrombus seen in the proximal left peroneal vein. DATA REPOSITORY:
== END 2021-01-20 02:03 ==
PROVIDERS: PCP Internal Medicine; Visit Provider Family Medicine
DX: R60.9 Edema, unspecified (principal); I82.812 Embolism and thrombosis of superficial veins of left lower extremity
CPT/HCPCS: 93971

== ENCOUNTER 2021-01-28 15:00 | Outpatient (REF) | payer MEDICARE, SELFPAY ==
[2021-01-28 14:53] LABS: Abs Immature Grans 0.07 10^3/uL (0.0-0.06); Absolute Basophil Count 0.03 10^3/uL (0.0-0.2); Absolute Eosinophil Count 0.12 10^3/uL (0.0-0.7); Absolute Lymphocyte Count 2.88 10^3/uL (1.2-3.4); Absolute Monocyte Count 0.77 10^3/uL (0.1-0.8); Absolute Neutrophil Count 5.24 10^3/uL (1.2-6.7); Basophils % 0.3; Eosinophils % 1.3; HCT 43.2 % (36.0-46.0); HGB 13.2 g/dL (11.2-15.7); Immature Grans % 0.8; Lymphocytes % 31.6; MCH 29.7 pg (27.0-33.0); MCHC 30.6 % (32.0-36.0); MCV 97.1 fL (80-95); MPV 11.4 fL (8.0-11.0); Monocytes % 8.5; Neutrophils % 57.5; Nucleated RBC 0 %; Platelet Count 261 10^3/uL (130-400); RBC 4.45 10^6/uL (3.93-5.22); RDW 13.9 % (11.7-14.6); RDW-SD 49.5 fL; WBC 9.11 10^3/uL (4.4-10.8)
[2021-01-28 15:08] LABS: Bilirubin Negative (Negative); Blood Negative (Negative); Clarity Clear (Clear); Glucose Negative (Negative); Ketones Negative (Negative); Leukocyte Esterase Negative (Negative); Nitrite Negative (Negative); Specific Gravity 1.025 (1.005-1.025); Urobilinogen 0.2 EU/dL (Up TO 0.2)
[2021-01-28 15:14] LABS: ALT 23 U/L (14-59); AST 14 U/L (15-37); Albumin 3.7 g/dL (3.4-5.0); Alkaline Phosphatase 100 U/L (46-116); Anion Gap 8.1 mmol/L (3-11); BUN 21 mg/dL (7-18); Bilirubin, Total 0.4 mg/dL (0.2-1.0); CO2 29.9 mmol/L (21.0-32.0); CREATININE 1.2 mg/dL (0.55-1.02); Calcium 9.4 mg/dL (8.5-10.1); Chloride 105 mmol/L (98-107); Estimated GFR 43.45 (mL/min/1.73m2); Glucose 91 mg/dL (74-106); Potassium 4.4 mmol/L (3.5-5.1); Sodium 143 mmol/L (136-145); Total Protein 6.6 g/dL (6.4-8.2)
== END 2021-01-28 15:01 | disposition home or self-care (01) ==
LOC: NCHCN 15:00
PROVIDERS: PCP Internal Medicine; Visit Provider Family Medicine
DX: R10.9 Unspecified abdominal pain (principal)
CPT/HCPCS: 80053; 81003; 85025

== ENCOUNTER 2021-02-24 19:10 | Inpatient (IN) | payer MEDICARE, SELFPAY ==
[2021-02-24] VITALS (21 sets, daily range): BP systolic 129–166; BP diastolic 53–89; PULSE 63–80; RESP 14–19; TEMP 36.3–36.7; O2SAT 94–100
--- NOTE | 2021-02-24 19:30 | DI.CT_ITS ---
Exam(s) CT ABDOMEN PELVIS W EXAM: CT ABDOMEN PELVIS W CLINICAL HISTORY: gi bleed, nausea, abdominal discomfort, brbpr TECHNIQUE: Imaging Protocol: Axial computed tomography images with coronal and sagittal reformatted images were created and reviewed CONTRAST MATERIAL: Intravenous: Omnipaque 350 Contrast volume:100 mL Oral: No COMPARISON: No priors for comparison. FINDINGS: ABDOMEN: Lung Bases: There are few tiny noncalcified pulmonary nodules in the lung bases less than 5 mm. Lenny nary artery calcifications. Hernia. Liver: Normal density. There are few tiny hypodensities in the liver. They are too small for further characterization. There is a 9 mm hypodense lesion in the inferior aspect of the right lobe of the liver. Portal, Superior Mesenteric, and Splenic Veins: Unremarkable. Gallbladder and Biliary Tract: Status post cholecystectomy. No biliary ductal dilatation. Pancreas: Normal density, no abnormal calcifications or inflammatory process. Spleen: Normal. Adrenals: No masses seen. Kidneys: Normal size, contour and axis. No radiodense stones or obstructive uropathy. There is a 4 mm cyst in the midpole of the left kidney. No follow-up is recommended. Abdominal Aorta: Abdominal portion non-dilated. Atherosclerosis. Bowel: No obstruction or bowel wall thickening. No evidence of appendicitis. There is diverticulosis in the sigmoid colon, but no evidence of acute diverticulitis. Peritoneal Cavity: No ascites, collection or mesenteric inflammatory response. No free air. Lymph Nodes: Within normal limits. Bones: Within normal limits for the patient's age. Soft Tissues: Unremarkable. PELVIS: Bladder: Symmetric distention, no gross wall thickening. Reproductive Organs: Status post hysterectomy. Lymph Nodes: Within normal limits. Bones: Within normal limits for the patient's age. IMPRESSION: 1. No acute abdominal or pelvic process. 2. Sub 5 mm pulmonary nodules. For low risk patients, no routine follow-up is recommended. For shaun ents with high risk (history of smoking or other known risk fractures), consider follow-up CT scan of the chest in 12 months. 3. 9 mm hypodensity in the right lobe of the liver. This is indeterminate. Consider nonemergent CT scan or MRI of the liver for further evaluation. RADIATION DOSE DELIVERED: 1,208.97mGy.cm Total DLP DATA REPOSITORY: All CT scans at this facility are submitted to the National Radiology Data Registry (NRDR) Dose Index Registry (DIR) with the [employer] (ACR). RADIATION OPTIMIZATION: All CT scans at this facility use at least one of these dose optimization te chniques: automated exposure control; mA and/or kV adjustment per patient size (includes targeted exa ms where dose is matched to clinical indication); or iterative reconstruction.
--- NOTE | 2021-02-24 19:46 | W.ED.GENAD ---
Discharge Plan Disposition Patient Disposition: [facility] INPATIENT Condition: Stable Discharge Details Clinical Impression: Acute gastrointestinal bleeding Admit Date/Time: 02/24/21 21:58 Admit Provider: Zane Ruiz Attending Provider: Zane Ruiz Primary Care Provider: Pito Natarajan ED Provider: Aryan Gonzáles Discharge Data Discharge Date/Time-TO BE ENTERED AT DEPARTURE: 02/24/21 22:50 Medical Decision Making <Bhavik Rider MD - Last Filed: 03/09/21 21:22> 19:53 -- 81-year-old female on Xarelto for DVT, here with heavy rectal bleeding since 5 PM today. Patient has associated diffuse abdominal discomfort. Patient with no active hemorrhage on exam. Hemodynamically stable. Plan to obtain CT the abdomen pelvis to assess for acute surgical pathology including malignancy. I will give Protonix IV bolus and infusion. Labs to assess hemoglobin. Patient will require admission for monitoring and reassessment given anticoagulant. <Aryan Gonzáles DO - Last Filed: 02/24/21 22:03> 81-year-old female was signed out to me by my colleague Dr. Bhavik Rider. Please refer to his HPI, physical exam assessment and plan. At time of signout we are pending laboratory work-up and CT imaging for GI bleed. Patient was on a Protonix drip. CT scan demonstrates no evidence of acute process, hemoglobin stable, labs unremarkable. Patient has been typed and screened. Patient remained stable, but does have notable concern with her symptomatology. Because of her blood thinner use, and her notable GI bleed at home as well as Dr. Rider's initial concern I do feel it reasonable to keep the patient overnight for continued observation, Protonix drip, and potential colonoscopy. Discussed the case with the hospitalist , he agrees with the assessment and plan. I have extensively reviewed the treatment plan with the patient. I have addressed all patient concerns at this time. I have also discussed the plan with the admitting physician and they agree with the current assessment and plan and have agreed to assume responsibility for the patient. All parties demonstrate verbal understanding and agreement with our assessment and plan at this time. The documentation in this chart was dictated using [employer] dictation software. Please excuse any dictation errors. FINDINGS: Lungs: Multiple sub 6 mm bilateral pulmonary nodules are seen. For patients at low risk (minimal or absent history of smoking and of other known risk factors), no routine follow-up is indicated. For patients at high risk (history of smoking or of other known risk factors), consider optional CT Chest at 12 months. (Reference: Domo) Diaphragm: Small hiatal hernia. Liver: Ill-defined 9 mm hypodensity in the right hepatic lobe. This is indeterminate. Correlation with priors if available or dedicated non urgent hepatic imaging should be considered. Gallbladder and bile ducts: Status post cholecystectomy. Pancreas: Normal. No ductal dilation. Spleen: Normal. No splenomegaly. Adrenal glands: Normal. No mass. Kidneys and ureters: Normal. No hydronephrosis. Stomach and bowel: Small hiatal hernia. No large or small bowel dilatation. Sigmoid diverticulosis. No CT evidence of diverticulitis. Appendix: No evidence of appendicitis. Intraperitoneal space: Unremarkable. No free air. No significant fluid collection. Vasculature: Coronary artery calcifications. Lymph nodes: Unremarkable. No enlarged lymph nodes. Urinary bladder: Unremarkable as visualized. Reproductive: Unremarkable as visualized. Bones/joints: Unremarkable. No acute fracture. Soft tissues: Unremarkable. IMPRESSION: No acute intra-abdominal pathology. Numerous incidental findings as above. REFERENCES: Domo Andres, et al. Guidelines for Management of Incidental Pulmonary Nodules Detected on CT Images: From the Fleischner Society 2017. Radiology. 2017;284(1):228-243. Thank you for allowing us to participate in the care of your patient. Dictated and Authenticated by: Gerson Irving MD 02/24/2021 9:24 PM Eastern Time ([place] & [place]) HPI <Bhavik Rider MD - Last Filed: 03/09/21 21:22> General Mode of arrival: ambulatory. Date/Time Provider Initiated Documentation: 02/24/21 19:25. Limitations to Documentation: no limitations. Information obtained by: patient. HPI Narrative: 81-year-old female here with chief complaint of rectal bleeding. Patient notes rectal bleeding started 5:00 today. Rectal bleeding was heavy and she had multiple episodes. Bright red blood. No modifiers. Patient is on Xarelto for DVT which she started approximately 1 month ago. Patient notes that she did have a single episode of bright red blood per rectum couple weeks ago that resolved. She does have some associated abdominal queasiness. She is unsure of her last colonoscopy and the results of colonoscopy. She thinks she is due for colonoscopy. Related Data Home Medications Medication Instructions Recorded Confirmed lisinopril 20 mg PO HS tab-cap 03/21/15 03/06/21 ascorbic acid (vitamin C) 500 mg PO DAILY 01/30/19 03/04/21 acetaminophen 500 mg PO Q6H PRN #60 tab 01/31/19 03/06/21 simvastatin 20 mg PO HS 02/25/21 03/06/21 cephalexin 250 mg capsule 250 mg PO BID 5 Days #10 cap 03/06/21 Previous Rx's Medication Instructions Recorded acetaminophen 500 mg PO Q6H PRN #60 tab 01/31/19 cephalexin 250 mg capsule 250 mg PO BID 5 Days #10 cap 03/06/21 Allergies Allergy/AdvReac Type Severity Reaction Status Date / Time Sulfa (Sulfonamide Allergy Severe Anaphylaxsi Unverified 03/06/21 10:22 Antibiotics) s metoprolol Allergy Unknown UNKNOWN Unverified 03/06/21 10:22 aspirin AdvReac Unknown UNKNOWN Unverified 03/06/21 10:22 ibuprofen AdvReac Unknown UNKNOWN Unverified 03/06/21 10:22 General Stated Complaint: GI Bleed SHYANNE: 3 Review of Systems <Bhavik Rider MD - Last Filed: 03/09/21 21:22> All systems reviewed & are unremarkable except as noted in HPI and below Constitutional Constitutional: Denies fever(s) Gastrointestinal Gastrointestinal: Reports as per HPI and Denies melena Comments: Constipation intermittent PFSH <Bhavik Rider MD - Last Filed: 03/09/21 21:22> Medical History Aortic stenosis mild-moderate Cataracts, bilateral Chronic daily headache GERD (gastroesophageal reflux disease) Hyperlipemia Hypertension Migraine headache with aura Mild cognitive impairment Neuralgia R>L ear Osteoarthritis Surgical History Cholecystectomy Diaphragmatic Hernia Repair H/O: hysterectomy Hiatal hernia S/P carpal tunnel release S/P cataract extraction S/P eye surgery R retina pucker S/P right rotator cuff repair (01/31/19) Dr. Ramos Trigger Finger release Family History Father Heart disease Hypertension Mother Diabetes Heart disease Hypertension Social History Smoking/Tobacco Use Status: Former Tobacco Use Quit Date: 05/23/89 Smoking risk assessment performed?: Yes Alcohol Intake: never Details: DOES NOT DRINK Drug use: Never Substance use type: does not use Household members: spouse Housing: house current occupation: [employer] Current gender identity: female What is your relationship status?: Panel score (0-1 are the most socially isolated patients): 1 Seatbelt use: always Do you feel safe at home: Yes Do you feel safe in your relationship?: Yes Exam <Bhavik Rider MD - Last Filed: 03/09/21 21:22> Const General: cooperative and no acute distress HENMT Mouth: moist mucous membranes Eyes Conjunctivae: normal conjunctivae Sclera: normal sclerae Resp Auscultation: clear to auscultation bilaterally, no rales, no rhonchi and no wheezes Cardio Rate: regular rate and not tachycardic Rhythm: regular rhythm Heart Sounds: murmur systolic III/ GI Palpation: soft, not firm, no guarding, no masses and not rigid Rectal Exam - female: abnormal stool Rectal exam abnormal stool - female: blood-tinged stool, No fissure, heme positive stool and No hemorrhoids Other: Rectal exam performed with female nurse Deirdre de la vega Skin General skin exam: no rashes or lesions noted Neuro General: patient alert, patient awake, patient oriented x3 and tone normal Extrem General: no edema Psych Appearance: grossly normal Mental Status: mental status grossly normal Speech and Movement: speech and movement normal Course <Bhavik Rider MD - Last Filed: 03/09/21 21:22> Vital Signs Vital signs: Vital Signs Temperature 36.7 C 02/24/21 19:17 Pulse 80 02/24/21 19:17 Respiratory Rate 16 02/24/21 19:17 Blood Pressure 166/74 H 02/24/21 19:17 Pulse Oximetry 100 02/24/21 19:17 Temperature 36.7 C 02/24/21 19:17 Temperature Source Skin 02/24/21 19:17 Pulse 80 02/24/21 19:17 Respiratory Rate 16 02/24/21 19:17 Respiratory Effort Non-Labored 02/24/21 19:23 Blood Pressure 166/74 H 02/24/21 19:17 Pulse Oximetry 100 02/24/21 19:17 Pain Level 2 02/24/21 19:17 Sign Out <Bhavik Rider MD - Last Filed: 03/09/21 21:22> Sign Out Data: Sign Out Comment: Patient here with acute gastrointestinal bleeding on Xarelto for DVT, also associated mild abdominal discomfort, CT and labs pending at signout. Patient has been started on Protonix bolus and infusion. Plan to follow-up on diagnostics and reassess patient for disposition. Last updated by Bhavik Rider MD at 02/24/21 19:55
[2021-02-24 20:07] LABS: Abs Immature Grans 0.03 10^3/uL (0.0-0.06); Absolute Basophil Count 0.03 10^3/uL (0.0-0.2); Absolute Eosinophil Count 0.08 10^3/uL (0.0-0.7); Absolute Lymphocyte Count 2.94 10^3/uL (1.2-3.4); Absolute Monocyte Count 0.85 10^3/uL (0.1-0.8); Absolute Neutrophil Count 4.56 10^3/uL (1.2-6.7); Basophils % 0.4; Eosinophils % 0.9; HCT 39.9 % (36.0-46.0); HGB 12.6 g/dL (11.2-15.7); Immature Grans % 0.4; Lymphocytes % 34.6; MCH 30.3 pg (27.0-33.0); MCHC 31.6 % (32.0-36.0); MCV 95.9 fL (80-95); MPV 10.7 fL (8.0-11.0); Neutrophils % 53.7; Nucleated RBC 0 %; Platelet Count 250 10^3/uL (130-400); RBC 4.16 10^6/uL (3.93-5.22); RDW 13.1 % (11.7-14.6); RDW-SD 45.8 fL; WBC 8.49 10^3/uL (4.4-10.8)
[2021-02-24] MEDS: Pantoprazole 40 MG VIAL 80 MG IVP (20:07)
[2021-02-24] MEDS: PANTOPRAZOLE 80 MG in Normal Saline 100 ML 10 MG IV (20:07)
[2021-02-24 20:20] LABS: INR 1.2 (0.9-1.1); Prothrombin Time 12.1 sec (9.3-11.0)
[2021-02-24 20:23] LABS: Source Nasal/Nares
[2021-02-24 20:27] LABS: ALT 24 U/L (14-59); AST 15 U/L (15-37); Albumin 3.7 g/dL (3.4-5.0); Alkaline Phosphatase 94 U/L (46-116); Anion Gap 8.2 mmol/L (3-11); BUN 23 mg/dL (7-18); Bilirubin, Total 0.3 mg/dL (0.2-1.0); CO2 28.8 mmol/L (21.0-32.0); CREATININE 1.2 mg/dL (0.55-1.02); Calcium 9.6 mg/dL (8.5-10.1); Chloride 108 mmol/L (98-107); Estimated GFR 43.34 (mL/min/1.73m2); Glucose 101 mg/dL (74-106); Potassium 3.8 mmol/L (3.5-5.1); Sodium 145 mmol/L (136-145); Total Protein 7.3 g/dL (6.4-8.2)
[2021-02-24] MEDS: Normal Saline - Diluent 50 ML VIAL IV (20:43)
[2021-02-24] MEDS: Omnipaque 350 MG/ML 100 ML BTL IJ (20:43)
--- NOTE | 2021-02-24 21:24 | DI.VRAD_ITS ---
PROCEDURE INFORMATION: Exam: CT Abdomen And Pelvis With Contrast Exam date and time: 02/24/2021 7:43 PM Age: 81 years old Clinical indication: Nausea and other: Brbpr; Abdominal pain; Generalized; Patient HX: Gi bleed, nausea, abdominal discomfort, brbpr TECHNIQUE: Imaging protocol: Computed tomography of the abdomen and pelvis with contrast. Radiation optimization: All CT scans at this facility use at least one of these dose optimization techniques: automated exposure control; mA and/or kV adjustment per patient size (includes targeted exams where dose is matched to clinical indication); or iterative reconstruction. Contrast material: OMNIPAQUE 350; Contrast volume: 100 ml; Contrast route: INTRAVENOUS (IV); COMPARISON: CR XR HIP RT COMPLETE AP PELVIS 10/13/2020 1:53 PM FINDINGS: Lungs: Multiple sub 6 mm bilateral pulmonary nodules are seen. For patients at low risk (minimal or absent history of smoking and of other known risk factors), no routine follow-up is indicated. For patients at high risk (history of smoking or of other known risk factors), consider optional CT Chest at 12 months. (Reference: Domo) Diaphragm: Small hiatal hernia. Liver: Ill-defined 9 mm hypodensity in the right hepatic lobe. This is indeterminate. Correlation with priors if available or dedicated non urgent hepatic imaging should be considered. Gallbladder and bile ducts: Status post cholecystectomy. Pancreas: Normal. No ductal dilation. Spleen: Normal. No splenomegaly. Adrenal glands: Normal. No mass. Kidneys and ureters: Normal. No hydronephrosis. Stomach and bowel: Small hiatal hernia. No large or small bowel dilatation. Sigmoid diverticulosis. No CT evidence of diverticulitis. Appendix: No evidence of appendicitis. Intraperitoneal space: Unremarkable. No free air. No significant fluid collection. Vasculature: Coronary artery calcifications. Lymph nodes: Unremarkable. No enlarged lymph nodes. Urinary bladder: Unremarkable as visualized. Reproductive: Unremarkable as visualized. Bones/joints: Unremarkable. No acute fracture. Soft tissues: Unremarkable. IMPRESSION: No acute intra-abdominal pathology. Numerous incidental findings as above. REFERENCES: Domo Andres, et al. Guidelines for Management of Incidental Pulmonary Nodules Detected on CT Images: From the Fleischner Society 2017. Radiology. 2017;284(1):228-243. Dictated and Authenticated by: Gerson Irving MD. Ordering:GIORGIO Gutierres MD
--- NOTE | 2021-02-24 22:07 | W.PM.HP.N ---
Date of service: 02/24/21 Time of Service: 22:07 Assessment and Plan Assessment and plan (1) Acute gastrointestinal bleeding: Status: Acute Assessment and plan: Etiology of this GI bleeding is unclear. I do not see records of her previous colonoscopy in her records. I suspect this is a lower gastrointestinal hemorrhage but it could be upper gastrointestinal. She has been started on intravenous pantoprazole as of infusion. Her blood count will be rechecked soon and she will be continued on intravenous fluids and be made n.p.o. I will ask for surgical consult for the morning for an endoscopy. The consult has been entered tonight. (2) DVT (deep venous thrombosis): Status: Chronic Assessment and plan: We will be stopping her oral anticoagulant now. Depending on the etiology of her rectal bleeding we may need to consider vena cava filter if we cannot restart her anticoagulation soon. (3) Chronic anticoagulation: Status: Acute Assessment and plan: See above. History of Present Illness History of Present Illness Chief Complaint: rectal bleeding Narrative: This 81-year-old female came to emergency department because of rectal bleeding. She had this happen about a month ago that lasted for couple days and then resolved. Also about a month ago she developed a DVT in her left calf and was started on rivaroxaban. She thinks that she was not on the anticoagulant at the time she had the previous rectal bleeding. She thinks her last colonoscopy was done about 3 years ago but not sure of that. She said she had the acute onset of bright red rectal bleeding about 5 PM tonight. She bled through 2 sets of close. She has had no abdominal pain. She says she has a history of easy bleeding but has never been diagnosed with a clotting disorder. She states that she did not go on a long car or other trips when she developed the DVT so I presume that that DVT was unprovoked. She has had no hematemesis. She does have a history of arthritis her hip and knees but I do not get a history of her taking any nonsteroidal anti-inflammatory drugs. She does not smoke cigarettes or drink alcohol. She lives with her in [place]. She has had both coronavirus vaccine doses and today had a flu vaccine. Review of Systems Constitutional Constitutional: Reports chills, Denies fever(s), Denies headache(s), Denies malaise and Denies weakness ENT Ears, Nose, Mouth, and Throat: Denies headache(s) Cardiovascular Cardiovascular: Denies chest pain and Denies dyspnea Respiratory Respiratory: Denies dyspnea Gastrointestinal Gastrointestinal: Denies abdominal pain, Reports hematochezia, Denies diarrhea, Denies nausea and Denies vomiting Comments: Chronic constipation treated with miralax. 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 Current gender identity: female What is your relationship status?: Panel score (0-1 are the most socially isolated patients): 1 Seatbelt use: always Do you feel safe at home: Yes Do you feel safe in your relationship?: Yes Meds Allergies and Home Medications Allergies Allergy/AdvReac Type Severity Reaction Status Date / Time Sulfa (Sulfonamide Allergy Severe Anaphylaxsi Unverified 02/24/21 19:21 Antibiotics) s metoprolol Allergy Unknown UNKNOWN Unverified 02/24/21 19:21 aspirin AdvReac Unknown UNKNOWN Unverified 02/24/21 19:21 ibuprofen AdvReac Unknown UNKNOWN Unverified 02/24/21 19:21 Home Medications Medication Instructions Recorded Confirmed Type simvastatin 20 mg PO DAILY tab-cap 12/20/14 02/24/21 History lisinopril 20 mg PO HS tab-cap 03/21/15 02/24/21 History diltiazem HCl 120 mg PO HS 10/01/15 02/24/21 History ascorbic acid (vitamin C) 500 mg PO DAILY 01/30/19 02/24/21 History acetaminophen 500 mg PO Q6H PRN #60 tab 01/31/19 02/24/21 Rx rivaroxaban [Xarelto] 5 mg PO DAILY 02/24/21 02/24/21 History Exam Const General: cooperative, healthy appearing, comfortable, no acute distress and not ill appearing Nutritional Appearance: average body habitus and well nourished Orientation: alert, awake and oriented x3 HENMT Head: normal to inspection Neck Neck: normal visual inspection and no lymphadenopathy Thyroid: thyroid normal Resp Effort & Inspection: normal respiratory effort and able to speak in complete sentences Auscultation: no rales, no rhonchi and no wheezes Cardio Jugular venous pressure: no JVD Rate: regular rate Rhythm: regular rhythm Heart Sounds: S1 normal, S2 normal, no gallops and no murmurs GI Inspection: normal to inspection Palpation: soft, no hepatosplenomegaly, not rigid and nontender Skin General skin exam: no rashes or lesions noted Extrem Left lower extremity: no edema Other: tender left calf. Results Labs Result diagrams: 02/24/21 19:50 02/24/21 19:50 Labs: Laboratory Results - last 24 hr 02/24/21 02/24/21 02/24/21 19:50 19:50 19:50 WBC 8.49 RBC 4.16 Hgb 12.6 Hct 39.9 MCV 95.9 H MCH 30.3 MCHC 31.6 L RDW 13.1 Plt Count 250 MPV 10.7 Immature Gran % 0.4 Neutrophils % 53.7 Lymphocytes % 34.6 Monocytes % 10.0 Eosinophils % 0.9 Basophils % 0.4 Nucleated RBC % 0 Absolute Neutrophils 4.56 Absolute Lymphocytes 2.94 Absolute Monocytes 0.85 H Absolute Eosinophils 0.08 Absolute Basophils 0.03 PT 12.1 H INR 1.2 H Sodium 145 Potassium 3.8 Chloride 108 H Carbon Dioxide 28.8 Anion Gap 8.2 BUN 23 H Creatinine 1.2 H Estimated GFR/1.73 m2 43.34 Glucose 101 Calcium 9.6 Total Bilirubin 0.3 AST 15 ALT 24 Alkaline Phosphatase 94 Total Protein 7.3 Albumin 3.7 COVID-19 Source Patient ABO/Rh Antibody Screen 02/24/21 02/24/21 19:50 20:15 WBC RBC Hgb Hct MCV MCH MCHC RDW Plt Count MPV Immature Gran % Neutrophils % Lymphocytes % Monocytes % Eosinophils % Basophils % Nucleated RBC % Absolute Neutrophils Absolute Lymphocytes Absolute Monocytes Absolute Eosinophils Absolute Basophils PT INR Sodium Potassium Chloride Carbon Dioxide Anion Gap BUN Creatinine Estimated GFR/1.73 m2 Glucose Calcium Total Bilirubin AST ALT Alkaline Phosphatase Total Protein Albumin COVID-19 Source Nasal/Nares Patient ABO/Rh A Positive Antibody Screen NEGATIVE Last Vital Signs Temp 36.7 C 02/24/21 19:17 Pulse 67 02/24/21 20:23 Resp 19 02/24/21 20:23 BP 153/62 H 02/24/21 20:23 Pulse Ox 98 02/24/21 20:23
[2021-02-24 23:32] LABS: HCT 38.4 % (36.0-46.0); HGB 11.9 g/dL (11.2-15.7)
[2021-02-24 23:35] LABS: COVID-19 PCR Negative (Negative)
[2021-02-24] MEDS: Acetaminophen 500 MG TAB PO (23:57)
--- NOTE | 2021-02-25 | DI.US_ITS ---
Exam(s) US EXTREMITY VENOUS BI EXAM: US EXTREMITY VENOUS BI CLINICAL HISTORY: F/u DVT. TECHNIQUE: Bilateral lower extremity venous ultrasound performed using grayscale, color-flow, and sp ectral Doppler analysis. COMPARISON: No exams were available for comparison FINDINGS: The bilateral common femoral, femoral and popliteal veins demonstrate normal compressibility, augment ation, and color Doppler. The posterior tibial veins are patent. The saphenofemoral junctions are unr emarkable. There is no evidence of a Winslow's cyst. The soft tissues are unremarkable. IMPRESSION: Right: Negative for DVT Left: Negative for DVT DATA REPOSITORY:
[2021-02-25] MEDS: Lactated Ringers 1,000 ML 100 ML IV (00:54)
[2021-02-25 02:57] VITALS: BP 108/61; PULSE 57; RESP 16; TEMP 36.4; O2SAT 98
[2021-02-25] MEDS: Acetaminophen 500 MG TAB PO (06:36)
[2021-02-25 07:11] LABS: Abs Immature Grans 0.01 10^3/uL (0.0-0.06); Absolute Basophil Count 0.03 10^3/uL (0.0-0.2); Absolute Eosinophil Count 0.08 10^3/uL (0.0-0.7); Absolute Lymphocyte Count 2.14 10^3/uL (1.2-3.4); Absolute Monocyte Count 0.57 10^3/uL (0.1-0.8); Absolute Neutrophil Count 3.33 10^3/uL (1.2-6.7); Basophils % 0.5; Eosinophils % 1.3; HCT 36.3 % (36.0-46.0); HGB 11.3 g/dL (11.2-15.7); Immature Grans % 0.2; Lymphocytes % 34.7; MCH 30.1 pg (27.0-33.0); MCHC 31.1 % (32.0-36.0); MCV 96.8 fL (80-95); MPV 10.7 fL (8.0-11.0); Monocytes % 9.3; Nucleated RBC 0 %; Platelet Count 208 10^3/uL (130-400); RBC 3.75 10^6/uL (3.93-5.22); RDW 13.2 % (11.7-14.6); RDW-SD 47.1 fL; WBC 6.16 10^3/uL (4.4-10.8)
[2021-02-25 07:21] LABS: Anion Gap 3.3 mmol/L (3-11); BUN 20 mg/dL (7-18); CO2 31.7 mmol/L (21.0-32.0); CREATININE 1.1 mg/dL (0.55-1.02); Calcium 9.1 mg/dL (8.5-10.1); Chloride 110 mmol/L (98-107); Estimated GFR 47.91 (mL/min/1.73m2); Glucose 87 mg/dL (74-106); Potassium 3.7 mmol/L (3.5-5.1); Sodium 145 mmol/L (136-145)
[2021-02-25 07:37] LABS: TSH (W/Ref FT4) 1.76 uIU/mL (0.36-3.74)
--- NOTE | 2021-02-25 08:07 | SCONE_ITS ---
Assessment and Plan Assessment and plan (1) Acute gastrointestinal bleeding: Status: Acute Assessment and plan: H/H Stable this morning and rectal bleeding has spontaneous resolved at this time. Patient is well appearing this morning. Given the resolution of her symptoms, recommend restarting her anticoagulation and begin clear liquid diet progressed as tolerated. If patient remains stable, suggest proceeding with Colonoscopy performed as an out-patient. However, if the patient begins to have rectal bleeding again, would recommend Colonoscopy as in patient. Continue with daily regimen of Miralax to maintain regular, soft stools. Will request previous Colonoscopy results from [facility]. History of Present Illness History of Present Illness Chief Complaint: Rectal Bleeding Narrative: 81 y/o female with a history of DVTs on chronic anticoagulation and migraines presented to the ER with complaints of bright red rectal bleeding x 2- 3 duration. She reported bleeding through two pairs of clothing. She denies any abdominal or rectal pain. Patient reports this has occurred previously and spontaneously resolved after 2-3 days. Anticoagulation was held and patient was made NPO. This morning patient reports rectal bleeding has resolved. She denies any abdominal pain, bloating or rectal pain. She reports long standing trouble with constipation and takes Miralax daily to maintain regular BMs. She states that her BMs are often hard. She has not had a BM since her admission into the hospital. She denies any chest pain, SOB, fevers or chills. Patient is unable to recall when her last Colonoscopy was performed. Stating it was performed at [facility]. Denies any family history of colon cancer or inflammatory bowel disease. 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[employer] Current gender identity: female What is your relationship status?: Panel score (0-1 are the most socially isolated patients): 1 Seatbelt use: always Do you feel safe at home: Yes Do you feel safe in your relationship?: Yes Exam Const General: cooperative, healthy appearing and comfortable Orientation: alert and oriented x3 Resp Effort & Inspection: normal respiratory effort, no audible wheezes and no cough GI Inspection: normal to inspection Palpation: soft, no guarding and nontender Results Last Vital Signs Temp 36.4 C L 02/25/21 02:57 Pulse 57 L 02/25/21 02:57 Resp 16 02/25/21 02:57 BP 108/61 02/25/21 02:57 Pulse Ox 98 02/25/21 02:57 Labs Result diagrams: 02/25/21 06:30 02/25/21 06:30 Labs: Laboratory Results - last 24 hr 02/24/21 02/24/21 02/24/21 19:50 19:50 19:50 WBC 8.49 RBC 4.16 Hgb 12.6 Hct 39.9 MCV 95.9 H MCH 30.3 MCHC 31.6 L RDW 13.1 Plt Count 250 MPV 10.7 Immature Gran % 0.4 Neutrophils % 53.7 Lymphocytes % 34.6 Monocytes % 10.0 Eosinophils % 0.9 Basophils % 0.4 Nucleated RBC % 0 Absolute Neutrophils 4.56 Absolute Lymphocytes 2.94 Absolute Monocytes 0.85 H Absolute Eosinophils 0.08 Absolute Basophils 0.03 PT 12.1 H INR 1.2 H Sodium 145 Potassium 3.8 Chloride 108 H Carbon Dioxide 28.8 Anion Gap 8.2 BUN 23 H Creatinine 1.2 H Estimated GFR/1.73 m2 43.34 Glucose 101 Calcium 9.6 Total Bilirubin 0.3 AST 15 ALT 24 Alkaline Phosphatase 94 Total Protein 7.3 Albumin 3.7 TSH COVID-19 Source SARS-CoV-2 (PCR) Patient ABO/Rh Antibody Screen 02/24/21 02/24/21 02/24/21 19:50 20:15 23:15 WBC RBC Hgb 11.9 Hct 38.4 MCV MCH MCHC RDW Plt Count MPV Immature Gran % Neutrophils % Lymphocytes % Monocytes % Eosinophils % Basophils % Nucleated RBC % Absolute Neutrophils Absolute Lymphocytes Absolute Monocytes Absolute Eosinophils Absolute Basophils PT INR Sodium Potassium Chloride Carbon Dioxide Anion Gap BUN Creatinine Estimated GFR/1.73 m2 Glucose Calcium Total Bilirubin AST ALT Alkaline Phosphatase Total Protein Albumin TSH COVID-19 Source Nasal/Nares SARS-CoV-2 (PCR) Negative Patient ABO/Rh A Positive Antibody Screen NEGATIVE 02/25/21 02/25/21 02/25/21 06:30 06:30 06:30 WBC 6.16 RBC 3.75 L Hgb 11.3 Hct 36.3 MCV 96.8 H MCH 30.1 MCHC 31.1 L RDW 13.2 Plt Count 208 MPV 10.7 Immature Gran % 0.2 Neutrophils % 54.0 Lymphocytes % 34.7 Monocytes % 9.3 Eosinophils % 1.3 Basophils % 0.5 Nucleated RBC % 0 Absolute Neutrophils 3.33 Absolute Lymphocytes 2.14 Absolute Monocytes 0.57 Absolute Eosinophils 0.08 Absolute Basophils 0.03 PT INR Sodium 145 Potassium 3.7 Chloride 110 H Carbon Dioxide 31.7 Anion Gap 3.3 BUN 20 H Creatinine 1.1 H Estimated GFR/1.73 m2 47.91 Glucose 87 Calcium 9.1 Total Bilirubin AST ALT Alkaline Phosphatase Total Protein Albumin TSH 1.76 COVID-19 Source SARS-CoV-2 (PCR) Patient ABO/Rh Antibody Screen
[2021-02-25 08:14] VITALS: BP 152/77; PULSE 63; RESP 17; TEMP 36.5; O2SAT 97
--- NOTE | 2021-02-25 09:08 | INITIAL_ITS ---
- If Service Date Differs Date of service: 02/25/21 Time of Service: 09:08 Care Management Initial Assess REASON FOR HOSPITALIZATION:: GI Bleed PAST MEDICAL HISTORY/PAST SURGICAL HISTORY:: Medical History (Updated 02/24/21 @ 22:16 by Zane Ruiz MD). Cataracts, bilateral. Chronic daily headache. GERD (gastroesophageal reflux disease). Hyperlipemia. Hypertension. Migraine headache with aura. Mild cognitive impairment. Neuralgia. R>L ear. Osteoa rthritis. Surgical History . Cholecystectomy. Diaphragmatic Hernia Repair. H/O: hysterectomy. Hiatal hernia. S/P carpal tunnel release. S/P cataract extraction. S/P eye surgery. R retina pucker. S/P right rotator cuff repair (01/31/19). Dr. Ramos. Trigger Finger release PREVIOUS FUNCTIONAL STATUS/SOCIAL/FAMILY SUPPORTS:: Abiola lives in [place] with her . She is independent at baseline. CURRENT FUNCTIONAL STATUS:: Abiola was discharged home with family before was able to meet with her. ADVANCE DIRECTIVES:: Not on file Has patient been provided with info about the portal/API?: Yes Did the patient sign up for the portal?: No CODE STATUS:: Full Code INSURANCE COVERAGE / FINANCIAL ISSUES:: AARP. Medicare PRIMARY CARE PHYSICIAN:: Pito Natarajan PATIENT/FAMILY EDUCATION NEEDS:: Review discharge instructions and plan to follow up with community providers. ask me three. ANTICIPATED BARRIERS TO DISCHARGE:: None identified TRANSPORTATION:: Via private vehicle with family PLAN:: Discharge home via private vehicle with family with no new services. Follow up with community providers including PCP and Dr. Lomeli.
[2021-02-25 11:30] VITALS: BP 143/80; PULSE 62; RESP 16; TEMP 36.8; O2SAT 98
[2021-02-25 15:18] VITALS: BP 146/73; PULSE 61; RESP 16; TEMP 36.6; O2SAT 98
[2021-02-25 15:36] LABS: HCT 40.9 % (36.0-46.0); HGB 12.7 g/dL (11.2-15.7)
--- NOTE | 2021-02-25 15:51 | CHAPLAIN ---
Abiola was resting in bed when I visited. She said she expects to be discharged today. Her son from [place] is coming home this weekend, after not being home for a couple of years, so she is hoping to be home for his arrival. Abiola lives in [place] with her , the former [employer] [facility]. She told me she has four children, nine grandchildren and 14 greatgrandchildren.
--- NOTE | 2021-02-25 16:58 | W.PM.DS.N ---
Date of service: 02/25/21 Time of Service: 16:59 DS: Diagnosis Discharge Diagnosis (1) Acute gastrointestinal bleeding: Status: Acute Discharge Plan Disposition Patient Disposition: HOME Condition: Stable Discharge Details Reason For Visit: GI Bleed Admit Date/Time: 02/24/21 21:58 Admit Provider: Zane Ruiz Attending Provider: Zane Ruiz Primary Care Provider: Pito Natarajan Hospital Course Hospital Course: This is a 81-year-old female who presented to the emergency department with episodes of rectal bleeding. She had this happen about a month ago that lasted for couple days and then spontaneously resolved. Also about a month ago she developed a DVT in her left calf and was started on rivaroxaban. She has had no abdominal pain. She was placed on a Protonix drip. CT scan demonstrates no evidence of acute process, hemoglobin stable, labs unremarkable. She was referred to observation on hospitalist services. She was made NPO pending a surgical consult. Overnight her H&H remained stable, there was no further bleeding. Surgery evaluated and recommendations to restart anticoagulation if indicated, and advance diet. She was started on clears and tolerating well. She underwent bilateral lower extremity ultrasound that shows no evidence of DVT in either leg. she is advised to stop anticoagulation. her hemoglobin and hematocrit 12.6/39.9, 11.9/38.4, 11.3/36.3, and at discharge 12.7/40.9. She is safe for discharge to home. she had a colonoscopy approx 3 years ago in [place], surgery requested records. They will see her in follow up outpatient for further recommendations. she is being discharged to home with no new services. follow up with pcp and surgery. return for recurrent bleeding. stop xarelto. discussed with Dr Carrasco Home Meds and New Rx's Prescriptions: Continued lisinopril 20 MG tablet 20 mg PO HS RF: 0 ascorbic acid (vitamin C) 500 mg Capsule 500 mg PO DAILY RF: 0 acetaminophen 500 mg tablet 500 mg PO Q6H PRN (Reason: pain) Qty: 60 RF: 3 diltiazem HCl 120 mg capsule,extended release 24 hr 120 mg PO HS RF: 0 simvastatin 20 mg tablet 20 mg PO HS RF: 0 Discontinued Xarelto 20 mg tablet 20 mg PO DAILY RF: 0 Discharge Instructions Instructions: Gastrointestinal Bleeding (DC) Additional Instructions: You had an ultrasound of your lower legs that show no DVT in either leg. You should stop your xarelto. Surgery was consulted and suggest proceeding with colonoscopy to be performed as an outpatient. Continue with daily regimen of Miralax to maintain regular, soft stools. Stand Alone Forms: Nursing Discharge Form Referrals: Pito Natarajan MD [Primary Care Provider] - (Call for a follow up in the next two weeks) Sharonda Lomeli MD [ [facility] STAFF PHYSICIAN] - Activity:: Activity as Tolerated Equipment/Supplies:: No Equipment Needed Diet:: As Tolerated Discharge Orders Discharge Orders: Discharge Order (Routine); Ordered 02/25/21 Ordered By: Rubina Ontiveros DS: Summary Time Spent with Patient providing and/or coordinating discharge services: Less than 30 minutes Status at Discharge Functional status at discharge: independent ambulation Overall status at discharge: patient is back to baseline Mental Status: mental status grossly normal Speech and Movement: speech and movement normal Mood: congruent mood Affect: normal affect Exam Const General: cooperative and no acute distress HENMT Mouth: moist mucous membranes Eyes Conjunctivae: normal conjunctivae Sclera: normal sclerae Resp Auscultation: clear to auscultation bilaterally Cardio Rate: regular rate Rhythm: regular rhythm Heart Sounds: murmur systolic III/ GI Palpation: soft, not firm, no guarding, no masses and not rigid Skin General skin exam: no rashes or lesions noted Neuro General: patient alert, patient awake, patient oriented x3 and tone normal Extrem General: no edema Psych Appearance: grossly normal Mental Status: mental status grossly normal Speech and Movement: speech and movement normal Mood: congruent mood Affect: normal affect DS: Data Vitals/I&O Vitals and I&O: Vital Signs Temperature 36.6 C 02/25/21 15:18 Temperature Source Tympanic 02/25/21 15:18 Pulse 61 02/25/21 15:18 Pulse Rhythm Regular 02/25/21 08:00 Pulse 71 02/24/21 20:32 Respiratory Rate 16 02/25/21 15:18 Respiratory Effort 02/25/21 08:00 Respiratory Depth Normal 02/25/21 08:00 Respiratory Pattern Normal 02/25/21 08:00 Blood Pressure 146/73 H 02/25/21 15:18 Blood Pressure Mean 85 02/24/21 22:02 Pulse Oximetry 98 02/25/21 15:18 Oxygen Delivery Method Room Air 02/25/21 15:18 Oxygen Flow Rate 0 02/25/21 15:18 Pain Level 5 02/25/21 15:18 Comment 02/24/21 22:51 Intake & Output 02/24/21 02/25/21 02/25/21 23:59 11:59 23:59 Output Total 400 / 400 500 / 900 400 / 900 Balance -400 / -400 -500 / -900 -400 / -900 Weight 85.4 kg Output: Urine 400 / 400 500 / 900 400 / 900 Other: Urine Color Yellow Yellow Yellow Straw Urine Appearance Clear Cloudy Clear Urine Odor None Normal Normal Comment pT voided independent in toilet Voiding Methods Toilet Toilet Toilet Data Completed and Pending Labs on day of discharge: Labs from last 24 hours 02/25/21 02/25/21 02/25/21 15:25 06:30 06:30 WBC 6.16 RBC 3.75 L Hgb 12.7 11.3 Hct 40.9 36.3 MCV 96.8 H MCH 30.1 MCHC 31.1 L RDW 13.2 Plt Count 208 MPV 10.7 Immature Gran % 0.2 Neutrophils % 54.0 Lymphocytes % 34.7 Monocytes % 9.3 Eosinophils % 1.3 Basophils % 0.5 Nucleated RBC % 0 Absolute Neutrophils 3.33 Absolute Lymphocytes 2.14 Absolute Monocytes 0.57 Absolute Eosinophils 0.08 Absolute Basophils 0.03 PT INR Sodium 145 Potassium 3.7 Chloride 110 H Carbon Dioxide 31.7 Anion Gap 3.3 BUN 20 H Creatinine 1.1 H Estimated GFR/1.73 m2 47.91 Glucose 87 Calcium 9.1 Total Bilirubin AST ALT Alkaline Phosphatase Total Protein Albumin TSH COVID-19 Source SARS-CoV-2 (PCR) Patient ABO/Rh Antibody Screen 02/25/21 02/24/21 02/24/21 06:30 23:15 20:15 WBC RBC Hgb 11.9 Hct 38.4 MCV MCH MCHC RDW Plt Count MPV Immature Gran % Neutrophils % Lymphocytes % Monocytes % Eosinophils % Basophils % Nucleated RBC % Absolute Neutrophils Absolute Lymphocytes Absolute Monocytes Absolute Eosinophils Absolute Basophils PT INR Sodium Potassium Chloride Carbon Dioxide Anion Gap BUN Creatinine Estimated GFR/1.73 m2 Glucose Calcium Total Bilirubin AST ALT Alkaline Phosphatase Total Protein Albumin TSH 1.76 COVID-19 Source Nasal/Nares SARS-CoV-2 (PCR) Negative Patient ABO/Rh Antibody Screen 02/24/21 02/24/21 02/24/21 19:50 19:50 19:50 WBC 8.49 RBC 4.16 Hgb 12.6 Hct 39.9 MCV 95.9 H MCH 30.3 MCHC 31.6 L RDW 13.1 Plt Count 250 MPV 10.7 Immature Gran % 0.4 Neutrophils % 53.7 Lymphocytes % 34.6 Monocytes % 10.0 Eosinophils % 0.9 Basophils % 0.4 Nucleated RBC % 0 Absolute Neutrophils 4.56 Absolute Lymphocytes 2.94 Absolute Monocytes 0.85 H Absolute Eosinophils 0.08 Absolute Basophils 0.03 PT 12.1 H INR 1.2 H Sodium Potassium Chloride Carbon Dioxide Anion Gap BUN Creatinine Estimated GFR/1.73 m2 Glucose Calcium Total Bilirubin AST ALT Alkaline Phosphatase Total Protein Albumin TSH COVID-19 Source SARS-CoV-2 (PCR) Patient ABO/Rh A Positive Antibody Screen NEGATIVE 02/24/21 19:50 WBC RBC Hgb Hct MCV MCH MCHC RDW Plt Count MPV Immature Gran % Neutrophils % Lymphocytes % Monocytes % Eosinophils % Basophils % Nucleated RBC % Absolute Neutrophils Absolute Lymphocytes Absolute Monocytes Absolute Eosinophils Absolute Basophils PT INR Sodium 145 Potassium 3.8 Chloride 108 H Carbon Dioxide 28.8 Anion Gap 8.2 BUN 23 H Creatinine 1.2 H Estimated GFR/1.73 m2 43.34 Glucose 101 Calcium 9.6 Total Bilirubin 0.3 AST 15 ALT 24 Alkaline Phosphatase 94 Total Protein 7.3 Albumin 3.7 TSH COVID-19 Source SARS-CoV-2 (PCR) Patient ABO/Rh Antibody Screen [facility] Medical History (Updated 02/24/21 @ 22:16 by Zane Ruiz MD) Cataracts, bilateral Chronic daily headache GERD (gastroesophageal reflux disease) Hyperlipemia Hypertension Migraine headache with aura Mild cognitive impairment Neuralgia R>L ear Osteoarthritis Surgical History Cholecystectomy Diaphragmatic Hernia Repair H/O: hysterectomy Hiatal hernia S/P carpal tunnel release S/P cataract extraction S/P eye surgery R retina pucker S/P right rotator cuff repair (01/31/19) Dr. Ramos Trigger Finger release Family History Father Heart disease Hypertension Mother Diabetes Heart disease Hypertension Social History Smoking/Tobacco Use Status: Former Tobacco Use Smoking risk assessment performed?: Yes Alcohol Intake: never Details: DOES NOT DRINK Drug use: Never Substance use type: does not use Household members: spouse Housing: house current occupation: [employer] Current gender identity: female What is your relationship status?: Panel score (0-1 are the most socially isolated patients): 1 Seatbelt use: always Do you feel safe at home: Yes Do you feel safe in your relationship?: Yes
--- NOTE | 2021-02-25 18:18 | PDOC.CMDIS ---
- If Service Date Differs Date of service: 02/25/21 Time of Service: 18:18 LACE Index Scoring Tool - Questions: Length of Stay (in days): 1 Acuity (Admit via E.D.?): Yes E.D. Visits: 1 - Answers: Total Score: 5 Risk of Readmission: Low Risk Care Management Discharge Reason for Hospitalization: GI Bleed Discharge Plan: Discharge home with no new services via private vehicle with family. Follow up with community providers and discharge plan of care as prescribed. Patient/Family Education Needs: Review discharge instructions, limitations and plan to follow up with community providers. ask me three.
== END 2021-02-25 17:59 | disposition home or self-care (01) | DRG 379 ==
LOC: ER 22:36 → MS 22:45
PROVIDERS: Nurse Practitioner Acute Care; Student in an Organized Health Care Education/Training Program; Admitting Provider Family Medicine; Emergency Provider Student in an Organized Health Care Education/Training Program; PCP Internal Medicine; Visit Provider Family Medicine
DX: K62.5 Hemorrhage of anus and rectum (principal); Z79.01 Long term (current) use of anticoagulants; E78.5 Hyperlipidemia, unspecified; K21.9 Gastro-esophageal reflux disease without esophagitis; G43.109 Migraine with aura, not intractable, without status migrainosus; G31.84 Mild cognitive impairment of uncertain or unknown etiology; Z86.718 Personal history of other venous thrombosis and embolism; Z20.822 Contact with and (suspected) exposure to COVID-19
CPT/HCPCS: 36415; 80048; 80053; 86850; 86900; 86901; 87635; 96365; 96366; 96376; 99221; 99285; 74177; 84443; 85014; 85018; 85025; 85610; 93970; 99222; 99238; J3490

== ENCOUNTER → 2021-02-27 09:45 | Outpatient (BNVA) | payer MEDICARE, SELFPAY | PROVIDERS: PCP Internal Medicine; Referring Provider Family Medicine; Visit Provider Physical Therapy Assistant | DX: K62.5 Hemorrhage of anus and rectum (principal) | CPT/HCPCS: 99214 ==

== ENCOUNTER 2021-03-02 10:28 | Outpatient (REF) | payer MEDICARE, SELFPAY ==
[2021-03-02 14:16] LABS: Abs Immature Grans 0.03 10^3/uL (0.0-0.06); Absolute Basophil Count 0.03 10^3/uL (0.0-0.2); Absolute Eosinophil Count 0.05 10^3/uL (0.0-0.7); Absolute Lymphocyte Count 1.75 10^3/uL (1.2-3.4); Absolute Neutrophil Count 3.86 10^3/uL (1.2-6.7); Basophils % 0.5; Eosinophils % 0.8; HCT 39.4 % (36.0-46.0); HGB 12.4 g/dL (11.2-15.7); Immature Grans % 0.5; Lymphocytes % 27.7; MCH 29.5 pg (27.0-33.0); MCHC 31.5 % (32.0-36.0); MCV 93.8 fL (80-95); MPV 11.2 fL (8.0-11.0); Monocytes % 9.5; Nucleated RBC 0 %; Platelet Count 211 10^3/uL (130-400); RDW 12.8 % (11.7-14.6); RDW-SD 43.8 fL; WBC 6.32 10^3/uL (4.4-10.8)
[2021-03-02 14:23] LABS: ESR 23 mm/hr (0-30)
== END 2021-03-02 10:29 | disposition home or self-care (01) ==
LOC: NCHCN 10:28
PROVIDERS: PCP Internal Medicine; Visit Provider Family Medicine
DX: R51.9 Headache, unspecified (principal); Z87.19 Personal history of other diseases of the digestive system
CPT/HCPCS: 85652; 85025

== ENCOUNTER 2021-03-04 03:37 | Outpatient (CLI) | payer MEDICARE, SELFPAY ==
[2021-03-04 10:11] LABS: Source Nasal/Nares
[2021-03-04 12:32] LABS: COVID-19 PCR Negative (Negative)
== END 2021-03-04 03:38 | disposition home or self-care (01) ==
LOC: LBO 03:38
PROVIDERS: PCP Internal Medicine; Visit Provider Surgery
DX: Z20.822 Contact with and (suspected) exposure to COVID-19 (principal)
CPT/HCPCS: 87635

== ENCOUNTER 2021-03-06 10:01 | Day surgery (SDC) | payer MEDICARE, SELFPAY ==
--- NOTE | 2021-03-05 11:57 | PDOC.DSDIS_ITS ---
Discharge Plan Disposition Patient Disposition: HOME Condition: Good Discharge Details Reason For Visit: colon scope and hemorrhoid banding Attending Provider: Selena Hill Primary Care Provider: Pito Natarajan Home Meds and New Rx's Prescriptions: Continued lisinopril 20 MG tablet 20 mg PO HS RF: 0 ascorbic acid (vitamin C) 500 mg Capsule 500 mg PO DAILY RF: 0 acetaminophen 500 mg tablet 500 mg PO Q6H PRN (Reason: pain) Qty: 60 RF: 3 simvastatin 20 mg tablet 20 mg PO HS RF: 0 Discontinued polyethylene glycol 3350 17 gram/dose powder 238 g PO ONCE Qty: 238 RF: 0 bisacodyl [Dulcolax (bisacodyl)] 5 mg tablet,delayed release (DR/EC) 5 mg PO ONCE Qty: 4 RF: 0 Discharge Instructions Additional Instructions: DSU Colonoscopy Post- Op Instructions Instructions for Everyone who is given Anesthesia: For your safety, please do the following for the next twenty-four (24) hours: *Do Not operate a motor vehicle (car, truck, motorcycle, etc.) *Do Not drink alcoholic beverages or use any recreational drugs for the first 24 hours or while taking pain medications. The medications in your body may have a reaction that can be dangerous. *Do Not make any important decisions or sign any important papers. Findings:diverticula hemorrhoids x1 polyp -Do not assume xeralto at this time Follow up: Dr. Hill in 1 weeks time appointment: 1. No lifting over 20 pounds or strenuous activity for the first 24 hours after your procedure. After 24 hours there are no restrictions on your activity but you may feel fatigued for a few days. 2. After you arrive home you may have a light meal and return to your normal diet as you can tolerate it without feeling sick to your stomach. 3. You may have a bloated, gaseous feeling in your belly (abdomen) after a colonoscopy. Passing gas and belching will help. Walking or lying down on your left side with your knees flexed may relieve the discomfort. Call the office at [phone] (Office) or [phone] (Hospital) right away if you notice any of the following: a.Vomiting of blood or ?coffee ground stools?. b.Rectal bleeding 1Tbsp, blood clots or continuous bleeding. c.Severe belly (abdominal) pain. d.A hard distended belly (abdomen) and an inability to pass gas. 4. Please don?t expect to have a normal BM (bowel movement) for 2-3 days after your procedure. 5. If there are questions regarding the findings of your procedure, please contact your doctor 6. If you are unable to contact your doctor with a problem, contact the hospital at [phone]. 7. Continue all your regular medications unless directed otherwise. I understand the above instructions and have no questions. Signature of Patient or Adult Escort Name of Responsible Adult Escort Signature of Nurse Date/Time Pain Relief From Hemorrhoids Hemorrhoid banding itself is not painful, but it is normal for patients to experience a sense of fullness or pressure after the procedure. Tylenol or Ibuprofen usually alleviates any symptoms. Post-Procedure Do's & Don'ts Do?s: ? Take fiber supplements to avoid constipation ? Squeeze your buttocks muscles 10-15 times every two hours ? Take 10-15 deep breaths every 1-2 hours ? Drink plenty of water ? Engage in moderate exercise ? Take a sitz bath ? soaking in a tub of warm water ? after every bowel movement Don?ts: ? Stay seated for more than 2-3 hours ? Rub or scrub the anus too vigorously ? Try to force a bowel movement ? if you cannot go, stop and try again later ? Insert anything into the anus for two weeks ? unless you have been prescribed anorectal medication ? Avoid alcohol, as it can dehydrate you and lead to constipation Occasionally, you may experience bleeding after the hemorrhoid banding procedure. Do not be concerned if there is a minimal amount of blood. However, if bleeding continues, lie flat with your bottom higher than your head and apply an ice pack to the area. If the bleeding does not stop within a half-hour, call our office or go to the emergency room. Bleeding complications are uncommon and occur <1% of the time. Additional Tips ? To avoid constipation, take two tablespoons of natural wheat bran, natural oat bran, flax, Benefiber or any over the counter fiber supplement with 7-8 glasses of water. Activity:: see above Diet:: see above Discharge Orders Discharge Orders: Discharge Order (Routine); Ordered 03/05/21 Ordered By: Selena Hill DS: Diagnosis Discharge Diagnosis (1) Colon cancer screening: Status: Acute
--- NOTE | 2021-03-05 12:00 | COLE_ITS ---
Colonoscopy Report Date of procedure: 03/06/21 Pre-op diagnosis general: rectal bleeding Post-op diagnosis procedure note: other (Polyp, AVM, diverticula, internal and external hemorrhoids) Surgeon: Selena Hill Anesthesia Type: General LMA/ETT Estimated blood loss (mL): 1 Pathology: other Complications: None Disposition: same day Prep: Miralax/Dulcolax Retraction Time: 20 Procedure Description: Pt has been having BRBPR. She had a CE at [facility] 3 yrs ago- it did show x15mm TA. She had moderate diverticular Dx. She is on Xaralto for DVT. HGB stable. CT is negative. After informed consent was obtained the patient was taken to the procedure room and placed in a left decubitous position. Monitors were applied and a time out was done. The patients name, date of , procedure, allergies to medications and metal in their body was reviewed. The patient was then sedated. Once sedated and comfortable a rectal exam was done. Very large external hemorrhoids. These are noninflamed. Internal exam revealed a normal sphincter tone and no palpable masses. The scope was then introduced and retrofelexed. X1 grade 1 internal hemorrhoids were identified. The scope was then advanced to the cecum without difficulty. The TI and appendiceal orifice were identified. The prep was good. The scope was then slowly retracted over 20 minutes back into the rectum. . The scope was removed and the patient was woken up and taken back to Same day surgery in stable condition. Moderate diverticula confined to the sigmoid colon. No signs of active bleeding or infection. She has a small polyp in the cecum. This was removed with a hot biting forcep. All specimen is retrieved and no bleeding is noted. She does have a small AVM in the cecum that is fulgurated. We did band x1 internal hemorrhoid banding as well The patient tolerated the procedure well and there were no immediate complications. Follow up: The patient does not require any further screening colonoscopies unless they develop changes in bowel habits or other new gastrointestinal complaints. -We will see her back in the office for follow-up after hemorrhoid banding. We will decide on resumption of her blood thinners at that time. -Patient also has a mild thrombophlebitis. She is having a lot of pain redness and swelling. It does appear that she actually has an infected thrombophlebitis and I am going to start her on Keflex. I will see her in the office on .
[2021-03-06 10:15] VITALS: BP 176/66; PULSE 68; RESP 18; TEMP 36.3; O2SAT 100
[2021-03-06] MEDS: Lactated Ringers 1,000 ML 80 ML IV (10:42)
--- NOTE | 2021-03-06 11:37 | W.ANESPRE ---
General Info Date of Service Date Performed: 03/06/21 Height: 5 ft 2 in Weight: 83.6 kg Body Mass Index (BMI): 33.7 Surgical Procedure: Operation Date: 03/06/21 10:35 Proposed Procedures Side Surgeon wale Hill, DO Meds Allergies and Home Medications Allergies Allergy/AdvReac Type Severity Reaction Status Date / Time Sulfa (Sulfonamide Allergy Severe Anaphylaxsi Unverified 03/06/21 10:22 Antibiotics) s metoprolol Allergy Unknown UNKNOWN Unverified 03/06/21 10:22 aspirin AdvReac Unknown UNKNOWN Unverified 03/06/21 10:22 ibuprofen AdvReac Unknown UNKNOWN Unverified 03/06/21 10:22 Home Medication Medication Instructions Recorded lisinopril 20 mg PO HS tab-cap 03/21/15 ascorbic acid (vitamin C) 500 mg PO DAILY 01/30/19 acetaminophen 500 mg PO Q6H PRN #60 tab 01/31/19 simvastatin 20 mg PO HS 02/25/21 Current Visit Medications: Current Medications Generic Name Dose Route Start Last Admin Trade Name Michealq PRN Reason Stop Dose Admin Hyoscyamine Sulfate 0.125 mg 03/05/21 11:56 Hyoscyamine 0.125 Mg Sl/Oral/Chew SL DIRECTED PRN Ringer's Solution 1,000 mls @ 80 mls/hr 03/06/21 06:00 03/06/21 10:42 IV 04/04/21 23:59 80 mls/hr INFUSION JAZMÍN Administration IV Miscellaneous Supplies 1 each 03/06/21 06:00 Iv Access IV 04/04/21 23:59 DIRECTED JAZMÍN Ondansetron HCl 4 mg 03/05/21 11:56 Ondansetron 4 Mg/2 Ml Vial IVP Q4H PRN PRN Nausea / Vomiting Sodium Chloride 0 ml 03/06/21 06:00 Normal Saline Flush 10 Ml Syr IV 04/04/21 23:59 PRN PRN Sodium Chloride 0 ml 03/06/21 06:00 Normal Saline 10 Ml Vial IJ 04/04/21 23:59 DIRECTED PRN Sterile Water 0 ml 03/06/21 06:00 Water,Injection,Sterile 10 Ml Vial IJ 04/04/21 23:59 DIRECTED PRN PFSH Active Problems Active Problems: Problem Status Onset Code Colon cancer screening Z12.11 Rendon'sandip tenosynovitis, right M65.4 Ganglion, right wrist 01/17/17 M67.431 Primary osteoarthritis of left hip 10/29/15 M16.12 Primary osteoarthritis of left knee 10/29/15 M17.12 Subacromial impingement of right shoulder 08/01/17 M75.41 Trochanteric bursitis, left hip 10/29/15 M70.62 Urinary tract infection N39.0 Primary osteoarthritis of right knee M17.11 Acute gastrointestinal bleeding K92.2 DVT (deep venous thrombosis) I82.409 Chronic anticoagulation Z79.01 S/P right rotator cuff repair 01/31/19 Z98.890 Neuralgia M79.2 Migraine headache with aura G43.109 Chronic daily headache R51 Medical History Medical History Aortic stenosis mild-moderate Cataracts, bilateral Chronic daily headache GERD (gastroesophageal reflux disease) Hyperlipemia Hypertension Migraine headache with aura Mild cognitive impairment 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 Ramos Trigger Finger release Tobacco Smoking/Tobacco Use Status: Former Tobacco Use Alcohol Alcohol Intake: never Details: DOES NOT DRINK Substance Use Substance use: Never Substance use type: does not use Vital Signs and Lab Results Vital Signs Most Recent Vital Signs in EMR: Most Recent Vital Signs Temp Pulse Resp BP Pulse Ox 36.3 C L 68 18 176/66 H 100 03/06/21 10:15 03/06/21 10:15 03/06/21 10:15 03/06/21 10:15 03/06/21 10:15 Lab Results Blood Type / Crossmatch: Patient ABO/Rh A Positive 02/24/21 19:50 02/24/21 Antibody Screen NEGATIVE 02/24/21 19:50 02/24/21 Complete Blood Count: White Blood Count 6.32 10^3/uL (4.4-10.8) 03/02/21 09:55 03/02/21 Red Blood Count 4.20 10^6/uL (3.93-5.22) 03/02/21 09:55 03/02/21 Hemoglobin 12.4 g/dL (11.2-15.7) 03/02/21 09:55 03/02/21 Hematocrit 39.4 % (36.0-46.0) 03/02/21 09:55 03/02/21 Platelet Count 211 10^3/uL (130-400) 03/02/21 09:55 03/02/21 Complete Metabolic Panel: Sodium Level 145 mmol/L (136-145) 02/25/21 06:30 02/25/21 Potassium Level 3.7 mmol/L (3.5-5.1) 02/25/21 06:30 02/25/21 Chloride Level 110 mmol/L (98-107) H 02/25/21 06:30 02/25/21 Carbon Dioxide Level 31.7 mmol/L (21.0-32.0) 02/25/21 06:30 02/25/21 Blood Urea Nitrogen 20 mg/dL (7-18) H 02/25/21 06:30 02/25/21 Creatinine 1.1 mg/dL (0.55-1.02) H 02/25/21 06:30 02/25/21 Estimated GFR/1.73 m2 47.91 (mL/min/1.73m2) 02/25/21 06:30 02/25/21 Calcium Level 9.1 mg/dL (8.5-10.1) 02/25/21 06:30 02/25/21 Albumin 3.7 g/dL (3.4-5.0) 02/24/21 19:50 02/24/21 Glucose Level 87 mg/dL (74-106) 02/25/21 06:30 02/25/21 Liver Function Panel: Alanine Aminotransferase (ALT/SGPT) 24 U/L (14-59) 02/24/21 19:50 02/24/21 Aspartate Amino Transf (AST/SGOT) 15 U/L (15-37) 02/24/21 19:50 02/24/21 Coagulation Panel: INR International Normalized Ratio 1.2 (0.9-1.1) H 02/24/21 19:50 02/24/21 Prothrombin Time 12.1 sec (9.3-11.0) H 02/24/21 19:50 02/24/21 Cardiac Panel: No Data to Display Arterial Blood Gas: No Data to Display Venous Blood Gas: No Data to Display Pancreas Panel: No Data to Display Thyroid Panel: Thyroid Stimulating Hormone (TSH) 1.76 uIU/mL (0.36-3.74) 02/25/21 06:30 02/25/21 Infectious Disease: Coronavirus (COVID-19)(PCR) Negative (Negative) 03/04/21 09:25 03/04/21 Coronavirus 2019 Source Nasal/Nares 03/04/21 09:25 03/04/21 Blood Cultures: No Data to Display Toxicology Panel: No Data to Display Anesthesia Assessment and Plan Anesthesia History Personal History: No History of Anesthesia Complications Family History: No Family History of Anesthesia Complications Exercise Tolerance Exercise Tolerance: Metabolic Equivalents>4 Pertinent Negatives Pertinent Negatives: No Symptoms of GERD, No Major Cardiovascular Symptoms or Complaints and No Major Pulmonary Symptoms or Complaints (KELSEY CPAP recalled) Cardiac & Pulmonary Exam Cardiac Exam: Normal S1/S2 Heart Sounds Pulmonary Exam: Clear Bilateral Breath Sounds Airway Exam Known Difficult Airway: No Mallampati Class: 1 Mouth Opening: Normal (> 3cm) Thyromental Distance: Greater than 3 cm Neck Range of Motion: Full ROM Neck Circumference: Normal Teeth Condition: Removable Dentures/Plates Upper and Removable Dentures/Plates Lower ASA Classification ASA Score: ASA 2 Emergency Case?: No NPO Status NPO Status: NPO Clears >2 hours, Solids >8 hours Anesthesia Plan Resuscitation Status: Full Code Anesthesia Technique: General Anesthesia Airway Planned: Natural Airway Monitors Used: Standard Monitors
[2021-03-06 11:39] VITALS: BMI 33.7
--- NOTE | 2021-03-06 12:19 | BOWEL_PTH ---
PATIENT: Abiola Pratt LOC: [facility] U#:[id number] AGE/SX: 81/F ROOM: RE03/06/[address]: Selena Hill : 1940 BED: DIS: 03/06/2021 SPEC #: [id number] RECD: 03/06/21 16:48 STATUS: SOLIS REQ #: [id number] ENRRIQUE: 03/06/21 12:[address]: Selena Hill DEPT: Surgical Specimen RECD BY: Tamara Ramos ENTERED: 03/06/21 16:48 SP TYPE: Bowel OTHR DR: Pito Natarajan Tissues: 1 - BIOPSY BOWEL Procedures: GROSS AND MICRO LEVEL 4 Comments: [id number]
[2021-03-06 12:37] VITALS: BP 136/61; PULSE 57; RESP 16; TEMP 35.9; O2SAT 98
[2021-03-06 13:12] VITALS: BP 152/69; PULSE 56; RESP 16; TEMP 36.3; O2SAT 99
--- NOTE | 2021-03-06 13:56 | W.ANESPOSTOP ---
Postoperative Evaluation Date, Time and Location Date Performed: 03/06/21 Time Performed: 13:15 Patient Location: Day Surgery Unit Vital Signs Most Recent Imported Vital Signs: Most Recent Vital Signs Temp Pulse Resp BP Pulse Ox 36.3 C L 56 L 16 152/69 H 99 03/06/21 13:12 03/06/21 13:12 03/06/21 13:12 03/06/21 13:12 03/06/21 13:12 Pain Score Most Recent Pain Score: Most Recent Pain Score Pain Level 0 03/06/21 13:12 Assessment Mental Status: Awake (Alert & Oriented to Patient Baseline) Airway and Respiratory Function: Patent airway with normal (patient baseline) respiratory exam Cardiovascular Function: Hemodynamically Stable Hydration Status: Adequately Hydrated Nausea & Vomiting: No Nausea or Vomiting Pain: Pt. Denies Any Pain Peripheral Nerve Block: Patient did not receive a nerve block
== END 2021-03-06 13:45 | disposition home or self-care (01) ==
PROVIDERS: PCP Internal Medicine; Visit Provider Surgery
PROC: 0DJD8ZZ Inspection of Lower Intestinal Tract, Via Natural or Artificial Opening Endoscopic (ICD-10-PCS; CPT 45378; principal; 2021-03-06 10:30)
DX: K62.5 Hemorrhage of anus and rectum (principal); K64.0 First degree hemorrhoids; K57.30 Diverticulosis of large intestine without perforation or abscess without bleeding; D12.0 Benign neoplasm of cecum; K55.20 Angiodysplasia of colon without hemorrhage; I10 Essential (primary) hypertension; E78.5 Hyperlipidemia, unspecified; K21.9 Gastro-esophageal reflux disease without esophagitis; Z79.01 Long term (current) use of anticoagulants; K64.4 Residual hemorrhoidal skin tags; I80.9 Phlebitis and thrombophlebitis of unspecified site
CPT/HCPCS: 45398; 45384; 88305

== ENCOUNTER → 2021-03-12 14:26 | Outpatient (BNVA) | payer MEDICARE, SELFPAY | PROVIDERS: PCP Internal Medicine; Referring Provider Internal Medicine; Visit Provider Surgery | DX: Z48.815 Encounter for surgical aftercare following surgery on the digestive system (principal); M79.605 Pain in left leg; D12.6 Benign neoplasm of colon, unspecified | CPT/HCPCS: 99212 ==

== ENCOUNTER 2021-03-23 13:18 | Outpatient (REF) | payer MEDICARE, SELFPAY | END 2021-03-23 13:19 | disposition home or self-care (01) | LOC: NCHCN 13:18 | PROVIDERS: PCP Internal Medicine; Visit Provider Internal Medicine | DX: R30.0 Dysuria (principal) | CPT/HCPCS: 87086 ==

== ENCOUNTER 2021-03-23 16:21 | Outpatient (CLI) | payer MEDICARE, SELFPAY ==
[2021-03-23 17:00] LABS: Abs Immature Grans 0.02 10^3/uL (0.0-0.06); Absolute Basophil Count 0.03 10^3/uL (0.0-0.2); Absolute Eosinophil Count 0.08 10^3/uL (0.0-0.7); Absolute Lymphocyte Count 2.33 10^3/uL (1.2-3.4); Absolute Monocyte Count 0.55 10^3/uL (0.1-0.8); Absolute Neutrophil Count 4.19 10^3/uL (1.2-6.7); Basophils % 0.4; Eosinophils % 1.1; HCT 43.2 % (36.0-46.0); HGB 13.2 g/dL (11.2-15.7); Immature Grans % 0.3; Lymphocytes % 32.4; MCH 29.5 pg (27.0-33.0); MCHC 30.6 % (32.0-36.0); MCV 96.6 fL (80-95); MPV 10.1 fL (8.0-11.0); Monocytes % 7.6; Neutrophils % 58.2; Nucleated RBC 0 %; Platelet Count 260 10^3/uL (130-400); RBC 4.47 10^6/uL (3.93-5.22); RDW 12.8 % (11.7-14.6)
[2021-03-23 17:04] LABS: ESR 27 mm/hr (0-30)
[2021-03-23 17:15] LABS: Creatine Kinase 61 U/L (26-192)
[2021-03-23 17:57] LABS: Vitamin B12 244 pg/mL (193-986)
[2021-03-25 14:31] LABS: ANA Interpretation Positive (Negative); ANA Titer Pattern 1:320 Homogeneous
[2021-03-31 12:30] LABS: dsDNA Ab, IgG <12.3 IU/mL (<30.0)
[2021-03-31 13:50] LABS: RNP Ab, IgG 1.2 Units (<20.0); SS-A Antibody 0.9 Units (<20.0); Sm (Smith) Ab, IgG 1.3 Units (<20.0)
== END 2021-03-23 16:22 | disposition home or self-care (01) ==
LOC: LBO 16:23
PROVIDERS: PCP Internal Medicine; Visit Provider Internal Medicine
DX: R79.89 Other specified abnormal findings of blood chemistry (principal); I10 Essential (primary) hypertension; R30.0 Dysuria; G31.84 Mild cognitive impairment of uncertain or unknown etiology; R01.1 Cardiac murmur, unspecified
CPT/HCPCS: 36415; 82550; 85652; 87040; 82607; 85025; 86038; 86225; 86235

== ENCOUNTER 2021-03-31 00:54 | Outpatient (CLI) | payer MEDICARE, SELFPAY ==
--- NOTE | 2021-03-31 06:30 | DI.US_ITS ---
Exam(s) US SOFT TISSUE EXTREMITY EXAM: US SOFT TISSUE EXTREMITY CLINICAL HISTORY: painfull mass ant LLE,m65.4,superficial thrombophlebitis. TECHNIQUE: Ultrasound was performed using standard protocol. COMPARISON: No exams were available for comparison FINDINGS: Sonographic assessment utilizing grayscale and color Doppler imaging was performed and targeted to th e area of clinical concern. No suspicious cystic or solid masses are seen in the area of concern in the left lower extremity. IMPRESSION: Negative targeted left lower extremity ultrasound. No sonographic evidence of a mass or focal fluid collection. DATA REPOSITORY:
== END 2021-03-31 01:14 ==
PROVIDERS: PCP Internal Medicine; Visit Provider Surgery
DX: M79.605 Pain in left leg (principal); R22.42 Localized swelling, mass and lump, left lower limb
CPT/HCPCS: 76881

== ENCOUNTER 2021-03-31 01:05 | Outpatient (CLI) | payer MEDICARE, SELFPAY ==
--- NOTE | 2021-03-31 | DI.US_ITS ---
APPROVED REPORT EXAM: Comprehensive 2D, Doppler, and color-flow Echocardiogram Patient Location: Out-Patient Cash Checker: Annette Beck RDCS (AE) Indications: Exertional Dyspnea, Aortic stenosis Other Information Study Quality: Good Conclusion Normal left ventricular wall thickness and chamber size. Estimated ejection fraction is 60%. Wall m otion is normal Normal right ventricular size and systolic function Both atria are mildly dilated The aortic valve is sclerotic and trileaflet. There is mild to moderate aortic stenosis. Peak gradi ent is 30, mean 19 mmHg. Calculated aortic valve area is 1.01 cm?? Mild mitral annular calcification. Mild mitral regurgitation Normal tricuspid valve with mild to moderate regurgitation. Estimated right ventricular systolic pre ssure is 28 mmHg Dilated ascending aorta measuring 3.99 cm Wall motion Left Ventricle The left ventricle is normal size. The left ventricular systolic function is normal. The left ventric ular ejection fraction is within the normal range. There is normal left ventricular wall thickness. T here is normal LV segmental wall motion. There is no ventricular septal defect visualized. LVEF is 60 %. Right Ventricle The right ventricle is normal size. The right ventricular systolic function is normal. The RVSP is 28 .4mmHg. Atria Left atrium is milldly dilated. Right atrium is mildly dilated. The interatrial septum is intact with no evidence for an atrial septal defect. Aortic Valve Aortic valve is calcified. Aortic valve is trileaflet. Mild to moderate aortic stenosis. Peak aortic valve gradient is 30.5mmHg. Highest mean aortic valve gradient is 19.3_mmHg. Calculated TERESA by the co ntinuity equation is 1.01cm2. No aortic regurgitation is present. Mitral Valve Mild mitral annular calcification. No evidence of mitral valve stenosis. Mild mitral regurgitation. Tricuspid Valve The tricuspid valve is normal in structure. There is no tricuspid valve stenosis. Mild to moderate tr icuspid regurgitation. Pulmonic Valve The pulmonary valve is normal in structure. There is no pulmonic valvular stenosis. Trace pulmonic re gurgitation. Great Vessels The aortic root is normal in size. The ascending aorta is mildly dilated.3.99 cm Aortic arch is toilia l in caliber. IVC is normal in size and collapses >50% with inspiration. Pericardium There is no pericardial effusion. 2D Dimensions IVSD d PLAX 0.83 cm F: 0.6-1.0 LV Vol A2C d MOD 101.6 mL LVPW d PLAX 0.83 cm F: 0.6 - 1.0 LV Vol A4C d MOD 98.5 mL LVID d PLAX 4.78 cm F: 3.8 - 5.2 LA vol/ BSA A2C s A-L 33.7 mL/m2 LVDs 3.20 cm F: 2.2 - 3.5 LA vol/ BSA A4C s A-L 31.8 mL/m2 Ao Root d 2.54 cm F: 2.7 - 3.3 LA Vol/ BSA Biplane s A-L 33.0 mL/m2 RA Area A4C 14.44 cm2 LA Area A4C s MOD 19.87 cm2 RA Vol/ BSA A4C s A-L 19.8 mL/m2 LA Area A2C s MOD 20.57 cm2 Ao Asc Diam d 3.39 cm F: 2.3 - 3.1 LV EF A4C MOD 60.1 % LV EF Teichholz 60.6 % LV EF A2C MOD 60.0 % LVEF (Turk's) 60.06 % F: 54 - 74 LV EF Biplane MOD 60.1 % LV Volume 79.53 mL F: 46 - 106 SV 61.75 mL LV Volume Index 43.69 mL/m2 F: 29 - 61 SV Index 33.79 mL/m2 LV Vol Biplane MOD 102.8 mL FS 32.35 % M-Mode TAPSE 2.49 cm (M/F) >1.7 LV Diastology MV E' medial 0.077 (>0.07 m/s) E/A Ratio 1.3 LV E/e MED 11.40 (<14) MV E Vmax 0.88 (0.4-1.3 m/s) MV E' lateral 0.080 (>0.1 m/s) MV A Vmax 0.70 (0.4-1.3 m/s) LV E/e LAT 11.05 (<14) MV E/A Ratio 1.19 MV E/E' medial 11.43 MV E/E' lateral 11.08 Aortic Valve LVOT Area 2.73 cm2 AoV Area Vmax 1.01 cm2 LVOT Vmax 1.02 m/s AoV Area/ BSA (Vmax) 0.55 cm2/m2 LVOT Mean Bright. 0.64 m/s TERESA Mean Bright. 0.84 cm2 LVOT Peak Grad 4.2 mmHg TERESA Mean Bright. Index 0.46 cm2/m2 LVOT Mean Grad 2.1 mmHg LVOT VTI 0.237 m LVOT Diam s 1.85 cm AoV Vmax 2.76 m/s Velocity Ratio 0.36 AoV Mean Bright. 2.11 m/s AoV Peak Grad 30.5 mmHg LVOT SV 64.66 mL AoV Mean Grad 19.3 mmHg AoV VTI 0.651 m AoV Area VTI 0.99 cm2 AoV Area/ BSA (VTI) 0.54 cm/m2 Mitral Valve MV DT 202 (160-240 msec) MV PHT 58 msec MV Area PHT 3.76 cm2 MV VTI 0.408 m MV Area VTI 1.58 (4.0-6.0 cm2) Pulmonary Valve PV Vmax 1.18 (0.5-1.5 m/s) RVOT Peak Gr. 2.84 mmHg PV Peak Grad 5.6 mmHg RVOT Mean Gr. 1.30 mmHg PV Mean Grad 2.9 mmHg RVOT VTI 0.179 m PV VTI 0.277 m RVOT Vmax 0.84 m/s Tricuspid Valve TR Peak Grad 25.4 mmHg TR Vmax 2.52 m/s RA Pressure 3.00 mmHg RVSP (TR) 28.4 mmHg
== END 2021-03-31 01:25 ==
PROVIDERS: PCP Internal Medicine; Visit Provider Internal Medicine
DX: R06.09 Other forms of dyspnea (principal); I08.3 Combined rheumatic disorders of mitral, aortic and tricuspid valves; I77.810 Thoracic aortic ectasia
CPT/HCPCS: 76881; 93306

== ENCOUNTER 2021-07-07 00:48 | Outpatient (CLI) | payer MEDICARE, SELFPAY ==
[2021-07-07 08:30] LABS: Estimated GFR 53.48 (mL/min/1.73m2)
[2021-07-07] MEDS: Omnipaque 350 MG/ML 100 ML BTL IJ (08:53)
--- NOTE | 2021-07-07 09:16 | DI.CT_ITS ---
Exam(s) CT ABDOMEN WO/W EXAM: CT ABDOMEN WO/W CLINICAL HISTORY: F/U LIVER LESION, K76.9 TECHNIQUE: COMPARISON: CT CT ABDOMEN PELVIS W from 02/24/2021 FINDINGS: Visualized lung bases are clear. No pleural effusions. There is no ascites. Gallbladder is again noted be surgically absent. CBD is not dilated. No new s ignificant findings in the pancreas, spleen, adrenals, and kidneys. The abdominal aorta is atheroscl erotic and upper normal diameter for this age group. There is no ojzdqnrpbpjruzq-kydh-hznorq adenopa thy. No evidence of anterior abdominal hernia at and above the umbilicus. No bowel obstruction. LIVER: The previously described right hepatic lobe findings are again noted. One of these is a tiny 3 millimeters cyst. The other is more peripherally located-subcapsular and exhibits characteristics of a probable hemangioma. No additional hepatic lesions identified. Osseous: No significant osseous lesions. No fractures. IMPRESSION: 1. Gallbladder surgically absent. The biliary tree is not dilated 2. Two benign-appearing findings in the right hepatic lobe. One is a tiny 2-3 millimeter benign cyst . The other is more peripherally located, measures approximately 9 x 7 millimeters and is most proba kathie a subcapsular benign hemangioma. Recommend follow-up in 1 year. I recommend that it be performe d with MRI at that time using hemangioma protocol.
== END 2021-07-07 01:08 ==
PROVIDERS: PCP Internal Medicine; Visit Provider Internal Medicine
DX: K76.89 Other specified diseases of liver (principal); Z90.49 Acquired absence of other specified parts of digestive tract; Z01.812 Encounter for preprocedural laboratory examination
CPT/HCPCS: 74170; 82565; J3490

== ENCOUNTER → 2021-08-14 10:45 | Outpatient (BNVA) | payer MEDICARE, SELFPAY | PROVIDERS: PCP Internal Medicine; Referring Provider Internal Medicine | DX: M17.11 Unilateral primary osteoarthritis, right knee (principal) | CPT/HCPCS: 20610; 99213; J1040 ==

== ENCOUNTER → 2021-10-26 02:38 | Outpatient (CLI) | payer MEDICARE, SELFPAY ==
--- NOTE | 2021-10-26 09:29 | DI.RAD_ITS ---
Exam(s) XR TIB/FIB LT EXAM: XR TIB/FIB LT CLINICAL HISTORY: PAIN LT LOWER LEG, M79.662. TECHNIQUE: 2D digital imaging was performed COMPARISON: No exams were available for comparison FINDINGS: BONES: No acute fracture is present. No bony destructive lesion is seen. There are mild degenerative changes of the medial femoral tibial joint. Ankle joint space is well maintained. SOFT TISSUE: Mild edema in the subcutaneous fat. IMPRESSION: Mild degenerative changes. Mild subcutaneous edema. DATA REPOSITORY: RADIATION DOSE DELIVERED:
== END ==
PROVIDERS: PCP Internal Medicine; Visit Provider Internal Medicine
DX: M79.662 Pain in left lower leg (principal); R60.0 Localized edema; M17.12 Unilateral primary osteoarthritis, left knee
CPT/HCPCS: 73590

== ENCOUNTER 2021-11-29 08:15 | Emergency (ER) | payer MEDICARE, SELFPAY ==
[2021-11-29 08:21] VITALS: BP 151/66; PULSE 73; RESP 18; TEMP 36.3
--- NOTE | 2021-11-29 08:27 | ED.GENADUL_ITS ---
Discharge Plan Disposition Patient Disposition: HOME Condition: Stable Discharge Details Clinical Impression: Left leg pain Primary Care Provider: Pito Natarajan ED Provider: Sanjuanita Kennedy Home Meds and New Rx's Prescriptions: No Action ascorbic acid (vitamin C) 500 mg Capsule 500 mg PO DAILY acetaminophen 500 mg tablet 500 mg PO Q6H PRN (Reason: pain) Qty: 60 3RF lisinopril 20 mg tablet 20 tab PO HS Label Comments: TAKE 1 TABLET BY MOUTH EVERY DAY Discharge Instructions Instructions: Leg Pain (ED) Additional Instructions: Please return and have an ultrasound as directed in the next 24 to 48 hours. Please follow-up in the emergency department for the results. If the ultrasound is negative for blood clot, I do recommend antibiotics. Please discuss this with the providers at tomorrow. Follow up with primary care provider in 3-5 days. Return to ED sooner if any worsening chest pain, shortness of breath, fever, chills nausea vomiting diarr hea or concerns. Increase oral fluids. Please take Tylenol with food every 4-6 hours as needed for pain and swelling. Referrals: Pito Natarajan MD [Primary Care Provider] - 5 days Medical Decision Making 81-year-old female presents to the ER with chief complaint of left lower extremity pain and right knee pain which has worsened over the last 24 hours. She does have chronic musculoskeletal issues and has a history of a DVT. She recently got steroid injections to her right knee approximately 3 months ago. She denies any known injury. Denies any fever. She does report chills states I am always cold. She does have a chronic appearing lesion noted to the medial aspect of her left lower extremity which does have some slight erythema and surrounding warmth. At this time labs ordered including CBC CMP lactate PT/INR, x-ray right knee. Would like to get venous Dopplers however do not have capability today let shaun ent come back tomorrow. 500 milligrams Tylenol given, patient reports that she is unable to take aspirin or blood thinners due to bleeding complications. CBC shows no leukocytosis, lactate slightly elevated at 1.6, GFR 47.9 I did discuss returning in the next 24 to 48 hours for ultrasound patient verbalized understanding. I also did speak with patient's who verbalized understanding. I did discuss recommendation to take a baby aspirin with the patient who refuses at this time. If negative ultrasound I do recommend antibiotics for possible cellulitis. Medical Records Medical records reviewed: Yes I reviewed the patient's medical records. Imaging Data Radiologic Study: Imaging: X-Ray Radiologist's impression: Imaging protocol: Radiologic exam of the Right knee. Views: 3 views. COMPARISON: CR XR KNEE RT 3V AP,LAT,HARDIK 10/13/2020 1:46 PM FINDINGS: Bones/joints: Similar osteoarthrosis. no acute fracture or dislocation. small suprapatellar effusion. Soft tissues: unremarkable soft tissues. IMPRESSION: Nonspecific small suprapatellar effusion. Lab Data Lab results reviewed: Yes I reviewed the patient's lab results. Labs: Laboratory Tests Range/Units 11/29/21 11/29/21 11/29/21 08:54 08:54 08:54 WBC (4.4-10.8) 10^3/uL 5.65 RBC (3.93-5.22) 10^6/uL 4.41 Hgb (11.2-15.7) g/dL 12.8 Hct (36.0-46.0) % 41.2 MCV (80-95) fL 93 MCH (27.0-33.0) pg 29.0 MCHC (32.0-36.0) % 31.1 L RDW (11.7-14.6) % 13.6 Plt Count (130-400) 10^3/uL 216 MPV (8.0-11.0) fL 10.4 Immature Gran % 0.4 Neutrophils % 61.1 Lymphocytes % 26.4 Monocytes % 10.4 Eosinophils % 1.2 Basophils % 0.5 Nucleated RBC % (0.0-0.3) % 0.0 Absolute Neutrophils (1.2-6.7) 10^3/uL 3.45 Absolute Lymphocytes (1.2-3.4) 10^3/uL 1.49 Absolute Monocytes (0.1-0.8) 10^3/uL 0.59 Absolute Eosinophils (0.0-0.7) 10^3/uL 0.07 Absolute Basophils (0.0-0.2) 10^3/uL 0.03 PT (9.3-11.0) sec INR (0.9-1.1) VBG Lactate (0.6-1.4) mmol/L 1.6 H Sodium (136-145) mmol/L 143 Potassium (3.5-5.1) mmol/L 3.6 Chloride (98-107) mmol/L 107 Carbon Dioxide (21.0-32.0) mmol/L 27.0 Anion Gap (3-11) mmol/L 9.0 BUN (7-18) mg/dL 17 Creatinine (0.55-1.02) mg/dL 1.1 H Estimated GFR/1.73 m2 (mL/min/1.73m2) 47.91 Glucose (74-106) mg/dL 91 Calcium (8.5-10.1) mg/dL 9.3 Magnesium (1.8-2.4) mg/dL 2.2 Total Bilirubin (0.2-1.0) mg/dL 0.4 AST (15-37) U/L 14 L ALT (14-59) U/L 17 Alkaline Phosphatase (46-116) U/L 98 Total Protein (6.4-8.2) g/dL 6.9 Albumin (3.4-5.0) g/dL 3.4 Range/Units 11/29/21 08:54 WBC (4.4-10.8) 10^3/uL RBC (3.93-5.22) 10^6/uL Hgb (11.2-15.7) g/dL Hct (36.0-46.0) % MCV (80-95) fL MCH (27.0-33.0) pg MCHC (32.0-36.0) % RDW (11.7-14.6) % Plt Count (130-400) 10^3/uL MPV (8.0-11.0) fL Immature Gran % Neutrophils % Lymphocytes % Monocytes % Eosinophils % Basophils % Nucleated RBC % (0.0-0.3) % Absolute Neutrophils (1.2-6.7) 10^3/uL Absolute Lymphocytes (1.2-3.4) 10^3/uL Absolute Monocytes (0.1-0.8) 10^3/uL Absolute Eosinophils (0.0-0.7) 10^3/uL Absolute Basophils (0.0-0.2) 10^3/uL PT (9.3-11.0) sec 9.9 INR (0.9-1.1) 1.0 VBG Lactate (0.6-1.4) mmol/L Sodium (136-145) mmol/L Potassium (3.5-5.1) mmol/L Chloride (98-107) mmol/L Carbon Dioxide (21.0-32.0) mmol/L Anion Gap (3-11) mmol/L BUN (7-18) mg/dL Creatinine (0.55-1.02) mg/dL Estimated GFR/1.73 m2 (mL/min/1.73m2) Glucose (74-106) mg/dL Calcium (8.5-10.1) mg/dL Magnesium (1.8-2.4) mg/dL Total Bilirubin (0.2-1.0) mg/dL AST (15-37) U/L ALT (14-59) U/L Alkaline Phosphatase (46-116) U/L Total Protein (6.4-8.2) g/dL Albumin (3.4-5.0) g/dL HPI General Mode of arrival: ambulatory . Date/Time Provider Initiated Documentation: 11/29/21 08:16 . Limitations to Documentation: no limitations . Information obtained by: patient, RN notes reviewed and old records reviewed . HPI Narrative: 81-year-old female presents to the ER with chief complaint of left lower extremity pain and right knee pain which has worsened over the last 24 hours. She does have chronic musculoskeletal issues and has a history of a DVT. She recently got steroid injections to her right knee approximately 3 months ago. She denies any known injury. Denies any fever. She does report chills states I am always cold. She does have a chronic appearing lesion noted to the medial aspect of her left lower extremity which does have some slight erythema and surrounding warmth. Patient has not taken any Tylenol or ibuprofen in the last 24 to 48 hours. She also reports that she is unable to take any blood thinners due to GI bleeding and is unable to take aspirin. Past medical history includes tubular adenoma of colon, synovitis, osteoarthritis, DVT, right rotator cuff repair, neuralgia, migraine, hypertension, hyperlipidemia, GERD, aortic stenosis, superficial thrombophlebitis of left lower extremity. Related Data Home Medications Medication Instructions Recorded Confirmed ascorbic acid (vitamin C) 500 mg 500 mg PO DAILY 01/30/19 08/14/21 capsule acetaminophen 500 mg tablet 500 mg PO Q6H PRN pain #60 tabs 01/31/19 08/14/21 lisinopril 20 mg tablet 20 tab PO HS 11/29/21 11/29/21 Previous Rx's Medication Instructions Recorded acetaminophen 500 mg tablet 500 mg PO Q6H PRN pain #60 tabs 01/31/19 Allergies Allergy/AdvReac Type Severity Reaction Status Date / Time Sulfa (Sulfonamide Allergy Severe Anaphylaxsi Unverified 11/29/21 08:24 Antibiotics) s metoprolol Allergy Unknown UNKNOWN Unverified 11/29/21 08:24 aspirin AdvReac Unknown UNKNOWN Unverified 11/29/21 08:24 ibuprofen AdvReac Unknown UNKNOWN Unverified 11/29/21 08:24 General Stated Complaint: Vascular SHYANNE: 3 Review of Systems Musculoskeletal Musculoskeletal: Reports as per HPI, Denies myalgias and Reports arthralgias (Right knee pain left lower extremity pain.) Integumentary/Breasts Skin/Breast: Reports lesions (Chronic appearing dark crusted lesion to left lower extremity) PFSH All Active Problems (Updated 11/29/21 @ 10:06 by Sanjuanita Kennedy NP) Left leg pain (Acute) Tubular adenoma of colon (Acute) Adenomatous colon polyp (Acute) Diverticula of colon (Acute) Chronic constipation (Acute) Pain of soft tissue of extremity (Acute) mid ant kaye of LLE Superficial thrombophlebitis of left leg (Acute) De Quervain's tenosynovitis, right (Acute) Ganglion, right wrist (Acute 01/17/17) Primary osteoarthritis of left hip (Acute 10/29/15) Primary osteoarthritis of left knee (Acute 10/29/15) Subacromial impingement of right shoulder (Acute 08/01/17) Trochanteric bursitis, left hip (Acute 10/29/15) Urinary tract infection (Acute) Primary osteoarthritis of right knee (Acute) Injection: 08/14/2021; 12/01/2020 DVT (deep venous thrombosis) (Chronic) S/P right rotator cuff repair (Acute 01/31/19) Dr. Ramos Neuralgia (Chronic) R>L ear Migraine headache with aura (Chronic) Chronic daily headache (Chronic) Medical History Aortic stenosis mild-moderate Cataracts, bilateral GERD (gastroesophageal reflux disease) Hyperlipemia Hypertension Mild cognitive impairment Osteoarthritis Surgical History Cholecystectomy Diaphragmatic Hernia Repair H/O: hysterectomy Hiatal hernia History of colonoscopy with polypectomy (~03/06/21) S/P carpal tunnel release S/P cataract extraction S/P eye surgery R retina pucker Trigger Finger release Family History Father Heart disease Hypertension Mother Diabetes Heart disease Hypertension Social History Smoking/Tobacco Use Status: Former Tobacco Use Quit Date: 05/23/89 Smoking risk assessment performed?: Yes Alcohol Intake: never Details: DOES NOT DRINK Drug use: Never Substance use type: does not use Household members: spouse Housing: house 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 Approximately 9 cm x 5 cm dry crusted lesion which patient reports has been there for a while does have a history of superficial thrombophlebitis mild surrounding erythema and warm. 2+ pitting edema noted to her left lower extremity which patient reports is chronic. Course Vital Signs Vital signs: Vital Signs Temperature 36.3 C L 11/29/21 08:21 Pulse 73 11/29/21 08:21 Respiratory Rate 18 11/29/21 08:21 Blood Pressure 151/66 H 11/29/21 08:21 Temperature 36.3 C L 11/29/21 08:21 Temperature Source Temporal Artery Scan 11/29/21 08:21 Pulse 73 11/29/21 08:21 Respiratory Rate 18 11/29/21 08:21 Blood Pressure 151/66 H 11/29/21 08:21 Oxygen Delivery Method Room Air 11/29/21 08:21 Oxygen Flow Rate 0 11/29/21 08:21 Pain Level 5 11/29/21 08:21
[2021-11-29 08:30] VITALS: RESP 18
--- NOTE | 2021-11-29 08:30 | DI.RAD_ITS ---
Exam(s) XR KNEE RT 3V AP,LAT,HARDIK EXAM: XR KNEE RT 3V AP,LAT,HARDIK CLINICAL HISTORY: Knee Pain. TECHNIQUE: 2D digital imaging was performed of the right knee. Four views obtained. AP, lateral and PA tunnel views were obtained. COMPARISON: CR XR KNEE RT 3V AP,LAT,HARDIK from 10/13/2020 FINDINGS: BONES: No acute fracture is present. No bony destructive lesion is seen. JOINTS: The knee is normally aligned. There is a small effusion. Mild degenerative changes are seen in the medial femoral tibial joint space with joint space narrowing and mild periarticular spurring. SOFT TISSUE: Normal. IMPRESSION: 1. No acute fracture or dislocation. 2. Mild degenerative changes of the knee. 3. Small joint effusion. DATA REPOSITORY: RADIATION DOSE DELIVERED:
[2021-11-29 08:36] VITALS: BP 134/47; PULSE 68; PULSE 71; RESP 16; O2SAT 100
[2021-11-29 08:46] VITALS: BP 123/46; PULSE 63; PULSE 73; RESP 21
[2021-11-29] MEDS: Acetaminophen 500 MG TAB PO (08:55)
[2021-11-29 08:59] LABS: Lactate 1.6 mmol/L (0.6-1.4)
[2021-11-29 09:01] VITALS: BP 119/54; PULSE 61; PULSE 64; RESP 14
[2021-11-29 09:01] LABS: Abs Immature Grans 0.02 10^3/uL (0.0-0.06); Absolute Basophil Count 0.03 10^3/uL (0.0-0.2); Absolute Eosinophil Count 0.07 10^3/uL (0.0-0.7); Absolute Lymphocyte Count 1.49 10^3/uL (1.2-3.4); Absolute Monocyte Count 0.59 10^3/uL (0.1-0.8); Absolute Neutrophil Count 3.45 10^3/uL (1.2-6.7); Basophils % 0.5; Eosinophils % 1.2; HCT 41.2 % (36.0-46.0); HGB 12.8 g/dL (11.2-15.7); Immature Grans % 0.4; Lymphocytes % 26.4; MCHC 31.1 % (32.0-36.0); MCV 93 fL (80-95); MPV 10.4 fL (8.0-11.0); Monocytes % 10.4; Neutrophils % 61.1; Platelet Count 216 10^3/uL (130-400); RBC 4.41 10^6/uL (3.93-5.22); RDW 13.6 % (11.7-14.6); RDW-SD 46.7 fL; WBC 5.65 10^3/uL (4.4-10.8)
[2021-11-29 09:12] LABS: Prothrombin Time 9.9 sec (9.3-11.0)
[2021-11-29 09:17] LABS: ALT 17 U/L (14-59); AST 14 U/L (15-37); Albumin 3.4 g/dL (3.4-5.0); Alkaline Phosphatase 98 U/L (46-116); BUN 17 mg/dL (7-18); Bilirubin, Total 0.4 mg/dL (0.2-1.0); CREATININE 1.1 mg/dL (0.55-1.02); Calcium 9.3 mg/dL (8.5-10.1); Chloride 107 mmol/L (98-107); Estimated GFR 47.91 (mL/min/1.73m2); Glucose 91 mg/dL (74-106); Magnesium 2.2 mg/dL (1.8-2.4); Potassium 3.6 mmol/L (3.5-5.1); Sodium 143 mmol/L (136-145); Total Protein 6.9 g/dL (6.4-8.2)
[2021-11-29 10:09] VITALS: BP 131/64; PULSE 60; RESP 16; O2SAT 99
--- NOTE | 2021-11-29 10:10 | DI.VRAD_ITS ---
PROCEDURE INFORMATION: Exam: XR Right Knee Exam date and time: 11/29/2021 9:34 AM Age: 81 years old Clinical indication: Pain; Knee; Right TECHNIQUE: Imaging protocol: Radiologic exam of the Right knee. Views: 3 views. COMPARISON: CR XR KNEE RT 3V AP,LAT,HARDIK 10/13/2020 1:46 PM FINDINGS: Bones/joints: Similar osteoarthrosis. no acute fracture or dislocation. small suprapatellar effusion. Soft tissues: unremarkable soft tissues. IMPRESSION: Nonspecific small suprapatellar effusion. Dictated and Authenticated by: Pito Mack MD. Ordering:DAVINA Gann MD
--- NOTE | 2021-11-29 10:45 | NUR.NOTE ---
Nursing Note: Request faxed to DI bilateral lower extremity venous doppler; LLE swelling, pain, leg pain, R/O DVT; follow up ED; to be done 24 to 48 hrs.
== END 2021-11-29 10:20 | disposition home or self-care (01) ==
PROVIDERS: Emergency Provider Registered Nurse Emergency; PCP Internal Medicine
DX: M79.605 Pain in left leg (principal); M25.561 Pain in right knee; L98.9 Disorder of the skin and subcutaneous tissue, unspecified; R60.0 Localized edema; I10 Essential (primary) hypertension; Z87.891 Personal history of nicotine dependence; Z86.718 Personal history of other venous thrombosis and embolism
CPT/HCPCS: 36415; 73562; 80053; 99283; 83605; 83735; 85025; 85610; 99282

== ENCOUNTER → 2021-11-30 12:37 | Outpatient (CLI) | payer MEDICARE, SELFPAY ==
--- NOTE | 2021-11-30 | DI.US_ITS ---
Exam(s) US EXTREMITY VENOUS BI EXAM: US EXTREMITY VENOUS BI CLINICAL HISTORY: LLE SWELLING, PAIN, LEG PAIN, ? DVT TECHNIQUE: Grayscale, color, and doppler imaging of the deep venous system of both lower extremities was performed. COMPARISON: US US ECHOCARDIOGRAM from 03/31/2021 FINDINGS: There is no evidence of intraluminal thrombus and there is normal compression and augmentation demons trated within the common femoral veins, femoral veins, and popliteal veins of both lower extremities. In the calves the interrogated veins also exhibit normal compression/ augmentation properties. The greater saphenous veins also appear patent as do the saphenofemoral junctions bilaterally.. Incidentally noted is a 2.7 by 2 x 1 cm winslow cyst in the left popliteal fossa. IMPRESSION: 1. No ultrasound evidence of DVT in either lower extremity. Winslow cyst noted in the left popliteal fossa. DATA REPOSITORY:
== END ==
PROVIDERS: PCP Internal Medicine; Visit Provider Registered Nurse Emergency
DX: M79.662 Pain in left lower leg; R22.42 Localized swelling, mass and lump, left lower limb; M71.22 Synovial cyst of popliteal space [Baker], left knee
CPT/HCPCS: 93970

== ENCOUNTER → 2021-12-15 09:11 | Outpatient (BNVA) | payer MEDICARE, SELFPAY | PROVIDERS: PCP Internal Medicine; Referring Provider Internal Medicine; Visit Provider Physician Assistant | DX: M17.11 Unilateral primary osteoarthritis, right knee (principal) | CPT/HCPCS: 20610; J1040 ==

== ENCOUNTER 2021-12-15 11:28 | Outpatient (REF) | payer MEDICARE, SELFPAY ==
--- NOTE | 2021-12-15 11:00 | SKI_PTH ---
PATIENT: Abiola Pratt LOC: [facility] U#:[id number] AGE/SX: 81/F ROOM: RE12/15/[address]: Pito Natarajan : 1940 BED: DIS: 12/15/2021 SPEC #: [id number] RECD: 12/15/21 16:54 STATUS: SOLIS CAZARES #: [id number] ENRRIQUE: 12/15/21 11:[address]: Pito Natarajan DEPT: Surgical Specimen RECD BY: Haily Perry Tissues: 1 - SKIN BIOPSY(SHAVE/PUNCH) Procedures: SKIN LEVEL 4 Comments: [id number]
== END 2021-12-15 11:29 | disposition home or self-care (01) ==
LOC: NCHCN 11:28
PROVIDERS: PCP Internal Medicine; Visit Provider Internal Medicine
DX: I87.2 Venous insufficiency (chronic) (peripheral) (principal)
CPT/HCPCS: 88305

== ENCOUNTER 2022-01-22 09:29 | Emergency (ER) | payer MEDICARE, SELFPAY ==
[2022-01-22 09:37] VITALS: BP 143/55; PULSE 74; RESP 18; TEMP 36.6; O2SAT 100
--- NOTE | 2022-01-22 09:45 | DI.RAD_ITS ---
Exam(s) XR CLAVICLE RT XR SHOULDER RT COMPLETE 2+V EXAM: XR SHOULDER RT COMPLETE 2+V CLINICAL HISTORY: fall ,shoudler pain TECHNIQUE: COMPARISON: CR XR CLAVICLE RT from 01/22/2022 FINDINGS: Four views of the shoulder and two views of the clavicle were obtained. There are moderate degenerat luisito changes of the glenoid humeral and acromioclavicular joints. There is no evidence of an acute fr acture or dislocation involving the bones of the shoulder or the clavicle. IMPRESSION: RADIATION DOSE DELIVERED: Total DLP
--- NOTE | 2022-01-22 09:48 | ED.GENADUL_ITS ---
Discharge Plan Disposition Patient Disposition: HOME Condition: Stable Discharge Details Chief Complaint: Orthopedic Clinical Impression: Contusion of shoulder Primary Care Provider: Pito Natarajan ED Provider: Tariq Menendez Home Meds and New Rx's Prescriptions: No Action amlodipine 5 mg tablet 5 mg PO DAILY lidocaine 4 % cream 1 applic topical QID PRN diclofenac sodium 1 % gel 2 g topical QID Rx Instructions: apply to single elbow, wrist or hand; for hand includes palm/fingers/back of hand metronidazole [MetroCream] 0.75 % cream 1 applic topical DAILY polyethylene glycol 3350 [Miralax] 17 gram/dose powder 17 g PO DAILY acetaminophen 500 mg tablet 500 mg PO Q6H PRN (Reason: pain) Qty: 60 3RF lisinopril 20 mg tablet 20 tab PO HS Label Comments: TAKE 1 TABLET BY MOUTH EVERY DAY Discharge Instructions Instructions: Contusion in Adults (ED) Additional Instructions: Please follow-up with orthopedic team as needed next week if your shoulder is not healing. Please return to the emergency department for any worsening symptoms. Medical Decision Making 81-year-old female presented mechanical fall tripped up the stairs this morning, fell onto her right shoulder, pain to lateral aspect of right shoulder, range of motion of elbow wrist and hand intact neurovascular exam of limb intact, no external signs of trauma however decreased range of motion due to pain, likely soft tissue injury such as partial rotator cuff tear versus contusion versus less likely dislocation or fracture. Screening x-ray, analgesia likely home with follow-up as needed. 12: 00 patient resting comfortably no acute distress CT negative for acute fracture of shoulder. Likely soft tissue injury. Patient given home care instructions and will follow up with orthopedic team as needed next week HPI General Date/Time Provider Initiated Documentation: 01/22/22 09:38 . HPI Narrative: 81-year-old female presents after mechanical fall tripped up the stairs today, fell on her right shoulder, pain to lateral right shoulder, decreased range of motion due to discomfort, she does endorse a prior rotator cuff injury status postsurgical repair. Denies other injuries such as head injury chest or abdominal injury. Related Data Home Medications Medication Instructions Recorded Confirmed acetaminophen 500 mg tablet 500 mg PO Q6H PRN pain #60 tabs 01/31/19 01/22/22 lisinopril 20 mg tablet 20 tab PO HS 11/29/21 01/22/22 amlodipine 5 mg tablet 5 mg PO DAILY 12/15/21 01/22/22 diclofenac sodium 1 % topical gel 2 g topical QID 12/15/21 01/22/22 lidocaine 4 % topical cream 1 applic topical QID PRN 12/15/21 01/22/22 metronidazole 0.75 % topical cream 1 applic topical DAILY 12/15/21 01/22/22 (MetroCream) polyethylene glycol 3350 17 17 g PO DAILY 12/15/21 01/22/22 gram/dose oral powder (Miralax) Previous Rx's Medication Instructions Recorded acetaminophen 500 mg tablet 500 mg PO Q6H PRN pain #60 tabs 01/31/19 Allergies Allergy/AdvReac Type Severity Reaction Status Date / Time Sulfa (Sulfonamide Allergy Severe Anaphylaxsi Unverified 01/22/22 09:42 Antibiotics) s metoprolol Allergy Unknown UNKNOWN Unverified 01/22/22 09:42 aspirin AdvReac Unknown UNKNOWN Unverified 01/22/22 09:42 ibuprofen AdvReac Unknown UNKNOWN Unverified 01/22/22 09:42 General Stated Complaint: Orthopedic SHYANNE: 4 Review of Systems Narrative: Review of Systems Constitutional: negative Eyes: negative ENT: negative Cardiovascular: negative Respiratory: negative Gastrointestinal: negative : negative Musculoskeletal: Right shoulder pain Skin: negative Neurologic: negative Psych: negative PFSH All Active Problems (Updated 01/22/22 @ 12:01 by Tariq Menendez MD) Contusion of shoulder (Acute) Tubular adenoma of colon (Acute) Adenomatous colon polyp (Acute) Diverticula of colon (Acute) Chronic constipation (Acute) Pain of soft tissue of extremity (Acute) mid ant kaye of LLE Superficial thrombophlebitis of left leg (Acute) De Quervain's tenosynovitis, right (Acute) Ganglion, right wrist (Acute 01/17/17) Primary osteoarthritis of left hip (Acute 10/29/15) Primary osteoarthritis of left knee (Acute 10/29/15) Subacromial impingement of right shoulder (Acute 08/01/17) Trochanteric bursitis, left hip (Acute 10/29/15) Urinary tract infection (Acute) Primary osteoarthritis of right knee (Acute) Injection: 08/14/2021; 12/01/2020 DVT (deep venous thrombosis) (Chronic) S/P right rotator cuff repair (Acute 01/31/19) Dr. Ramos Neuralgia (Chronic) R>L ear Migraine headache with aura (Chronic) Chronic daily headache (Chronic) Medical History Aortic stenosis mild-moderate Cataracts, bilateral GERD (gastroesophageal reflux disease) Hyperlipemia Hypertension Mild cognitive impairment Osteoarthritis Surgical History Cholecystectomy Diaphragmatic Hernia Repair H/O: hysterectomy Hiatal hernia History of colonoscopy with polypectomy (~03/06/21) S/P carpal tunnel release S/P cataract extraction S/P eye surgery R retina pucker Trigger Finger release Family History Father Heart disease Hypertension Mother Diabetes Heart disease Hypertension Social History Smoking/Tobacco Use Status: Former Tobacco Use Quit Date: 05/23/89 Smoking risk assessment performed?: Yes Alcohol Intake: never Details: DOES NOT DRINK Drug use: Never Substance use type: does not use Household members: spouse Housing: house 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[employer] Current gender identity: female What is your relationship status?: Panel score (0-1 are the most socially isolated patients): 1 Seatbelt use: always Do you feel safe at home: Yes Do you feel safe in your relationship?: Yes Exam Narrative Exam Narrative: Physical Examination General: alert, awake, cooperative, resting comfortably, no acute distress HEENT: normocephalic, atraumatic; PERRL, EOM intact, conjunctiva normal; no nasal discharge; moist mucous membranes, oral and pharyngeal mucosa normal, tolerating secretions Neck: supple, trachea midline; full ROM Chest: normal to inspection Respiratory: normal respiratory effort, speaking in full sentences, clear to auscultation, no wheezing, rales or rhonchi Cardiac: regular rate, regular rhythm, S1S2 intact, no murmurs rubs or gallops GI: abdomen soft, non-tender, non-distended; no palpable mass or hepatosplenomegaly Skin: no lesions, rashes or trauma appreciated Neuro: AAOx3, normal speech, moving all extremities Extremities: Tenderness over right lateral shoulder, able to flex extend and abduct arm however limited due to discomfort, no deformity or crepitus, no skin tenting, warm well perfused extremity, full range of motion at wrist elbow and fingers, median radial and ulnar nerve distribution intact, radial pulse strong Psych: Appropriate mood and affect Course Vital Signs Vital signs: Vital Signs Temperature 36.6 C 01/22/22 09:37 Pulse 74 01/22/22 09:37 Respiratory Rate 18 01/22/22 09:37 Blood Pressure 143/55 H 01/22/22 09:37 Pulse Oximetry 100 01/22/22 09:37 Temperature 36.6 C 01/22/22 09:37 Temperature Source Temporal Artery Scan 01/22/22 09:37 Pulse 74 01/22/22 09:37 Respiratory Rate 18 01/22/22 09:37 Respiratory Effort Non-Labored 01/22/22 09:40 Blood Pressure 143/55 H 01/22/22 09:37 Blood Pressure Position Sitting 01/22/22 09:37 Pulse Oximetry 100 01/22/22 09:37 Oxygen Delivery Method Room Air 01/22/22 09:37 Oxygen Flow Rate 0 01/22/22 09:37 Pain Level 3 01/22/22 09:40
[2022-01-22] MEDS: Cyclobenzaprine 10 MG TAB PO (09:53)
[2022-01-22] MEDS: Lidocaine 5% Patch 1 PATCH TP (09:53)
--- NOTE | 2022-01-22 10:30 | DI.RAD_ITS ---
Exam(s) XR HUMERUS RT EXAM: XR HUMERUS RT CLINICAL HISTORY: fall, right arm pain TECHNIQUE: COMPARISON: CR XR SHOULDER RT COMPLETE 2+V from 01/22/2022 FINDINGS: Two views were obtained. No fracture seen. IMPRESSION: RADIATION DOSE DELIVERED: Total DLP
--- NOTE | 2022-01-22 11:00 | DI.CT_ITS ---
Exam(s) CT UPPER EXTREMITY RT WO EXAM: CT UPPER EXTREMITY RT WO CLINICAL HISTORY: shoulder pain post fall TECHNIQUE: COMPARISON: No exams were available for comparison FINDINGS: CT examination of the shoulder was performed utilizing multi slice acquisition and multiplanar recons truction. There is evidence of prior surgery with multiple screw holes in the greater tuberosity of the humerus . There is no evidence of acute fracture or dislocation. IMPRESSION: RADIATION DOSE DELIVERED: 637.32mGy.cm Total DLP !Error CTDIvol DATA REPOSITORY: All CT scans at this facility are submitted to the National Radiology Data Registry (NRDR) Dose Index Registry (DIR) with the [employer] (A[employer]). RADIATION OPTIMIZATION: All CT scans at this facility use at least one of these dose optimization te chniques: automated exposure control; mA and/or kV adjustment per patient size (includes targeted exa ms where dose is matched to clinical indication); or iterative reconstruction.
== END 2022-01-22 12:50 | disposition home or self-care (01) ==
PROVIDERS: Emergency Provider Emergency Medicine; PCP Internal Medicine
DX: S40.011A Contusion of right shoulder, initial encounter (principal); I10 Essential (primary) hypertension; Z79.899 Other long term (current) drug therapy; Z87.891 Personal history of nicotine dependence; W01.10XA Fall on same level from slipping, tripping and stumbling with subsequent striking against unspecified object, initial encounter
CPT/HCPCS: 99284; 73000; 73030; 73060; 73200

== ENCOUNTER → 2022-02-08 08:31 | Outpatient (BNVA) | payer MEDICARE, SELFPAY | PROVIDERS: PCP Internal Medicine; Referring Provider Internal Medicine; Visit Provider Physician Assistant | DX: S40.011A Contusion of right shoulder, initial encounter (principal); W19.XXXA Unspecified fall, initial encounter; M79.605 Pain in left leg; M75.51 Bursitis of right shoulder; M75.41 Impingement syndrome of right shoulder; Z98.890 Other specified postprocedural states | CPT/HCPCS: 99215 ==

== ENCOUNTER 2022-03-04 19:18 | Emergency (ER) | payer MEDICARE, SELFPAY ==
[2022-03-04] VITALS (30 sets, daily range): BP systolic 95–164; BP diastolic 53–76; PULSE 68–91; RESP 7–22; TEMP 36.3–36.8; O2SAT 93–99
--- NOTE | 2022-03-04 19:15 | RT.EKG_ITS ---
APPROVED REPORT Exam: Resting ECG Reason for Exam: [facility] Patient Location: E HR:75 bpm ECG Measurements Heart Rate 75 AXIS AL 139 P 65 QRSd 95 QRS 5 QT 399 T 36 QTc 446 Conclusion Sinus rhythm...normal P axis, V-rate 60- 99. Sinus. Normal axis. No STEMI. I have reviewed and interpreted ECG and agree with software generated interpretation.
--- NOTE | 2022-03-04 19:15 | DI.CT_ITS ---
Exam(s) CT HEAD CERVICAL SPINE WO EXAM: CT HEAD CERVICAL SPINE WO CLINICAL HISTORY: fall/pain. TECHNIQUE: Imaging Protocol: Axial computed tomography images with coronal and sagittal reformatted images were created and reviewed COMPARISON: CT HEAD AND CSPINE W/O CONTRAST from 04/12/2017 FINDINGS: CT Head: Ventricles and Extra axial spaces: Normal in size and morphology for the patient's age. Hemorrhage: None. Cerebral parenchyma: There is no evidence of an acute territorial infarct. Areas of decreased attenu ation are seen in the white matter consistent with chronic microvascular ischemic disease. Midline shift: None. Brainstem/Cerebellum: Normal. Calvarium: Normal. Visualized Paranasal sinuses/Mastoids: Clear. Soft Tissues: Unremarkable. CT Cervical Spine: Bones: No acute fracture or subluxation. Mild cervical spondylosis. Soft Tissues: Unremarkable. Stable hypodense nodules are seen in the thyroid gland. None larger than 1 cm. No follow-up is recommended. Lung Apices: Clear. IMPRESSION: 1. No acute intracranial process. 2. No acute fracture or subluxation in the cervical spine. RADIATION DOSE DELIVERED: 1,376.73mGy.cm Total DLP DATA REPOSITORY: All CT scans at this facility are submitted to the National Radiology Data Registry (NRDR) Dose Index Registry (DIR) with the [employer] (ACR). RADIATION OPTIMIZATION: All CT scans at this facility use at least one of these dose optimization te chniques: automated exposure control; mA and/or kV adjustment per patient size (includes targeted exa ms where dose is matched to clinical indication); or iterative reconstruction.
--- NOTE | 2022-03-04 19:30 | DI.CT_ITS ---
Exam(s) CT CHEST W EXAM: CT CHEST W CLINICAL HISTORY: fall, upper back pain TECHNIQUE: Imaging Protocol: Axial computed tomography images with coronal and sagittal reformatted images were created and reviewed CONTRAST MATERIAL: Intravenous: Omnipaque 350Contrast volume:100 mL. COMPARISON: CT CT ABDOMEN WO/W from 07/07/2021 FINDINGS: Tracheobronchial tree: Patent where visualized. Pulmonary parenchyma: No consolidation or dominant measurable mass. Several small nodules are seen i n the lungs. The largest measures 6 mm and is located in the left lower lobe. No architectural dist ortion. Dependent atelectasis. Mediastinum and Gwen: No dominant adenopathy or fluid collection. The esophagus is unremarkable. The re is a moderate size hiatal hernia. There is a heterogeneous mass in the superior mediastinum measu ring 2.6 x 1.7 cm. It lies just inferior to the left lobe of the thyroid gland. Thyroid gland: Multinodular thyroid gland. Pleura: No effusion or pneumothorax. Heart: Cardiomegaly. Coronary artery calcifications are present. No pericardial effusion. Aorta: The ascending thoracic aorta measures 4.2 x 4 cm. Atherosclerosis is present. Pulmonary arteries: The subsegmental pulmonary arteries are not ideally opacified. No central pulmon vonnie embolus is identified. Upper abdomen: Status post cholecystectomy. Lymph nodes: Within normal limits. Bones: Within normal limits for the patient's age. Soft tissues: Unremarkable. IMPRESSION: 1. No acute pulmonary process. No evidence of a pneumothorax. 2. Multinodular thyroid gland. Heterogeneous mass inferior to the left lobe of the thyroid gland. T his may represent a thyroid nodule. Nonemergent thyroid ultrasound is recommended for further evalua tion. 3. Several small pulmonary nodules. The largest measures 6 mm. For low risk patients, a follow-up C T scan in 6-12 months is recommended. For high risk patients, (history of smoking or other risk fact ors), a follow-up examination in 6-12 months followed by an examination at 18-24 months is recommende d. (Tamar et al, 2017). Unexpected findings RADIATION DOSE DELIVERED: 507.2mGy.cm Total DLP DATA REPOSITORY: All CT scans at this facility are submitted to the National Radiology Data Registry (NRDR) Dose Index Registry (DIR) with the [employer] (ACR). RADIATION OPTIMIZATION: All CT scans at this facility use at least one of these dose optimization te chniques: automated exposure control; mA and/or kV adjustment per patient size (includes targeted exa ms where dose is matched to clinical indication); or iterative reconstruction.
[2022-03-04 19:46] LABS: Abs Immature Grans 0.02 10^3/uL (0.0-0.06); Absolute Basophil Count 0.03 10^3/uL (0.0-0.2); Absolute Eosinophil Count 0.09 10^3/uL (0.0-0.7); Absolute Lymphocyte Count 2.14 10^3/uL (1.2-3.4); Absolute Monocyte Count 0.73 10^3/uL (0.1-0.8); Absolute Neutrophil Count 4.72 10^3/uL (1.2-6.7); Basophils % 0.4; Eosinophils % 1.2; Immature Grans % 0.3; Lymphocytes % 27.7; MCH 29.3 pg (27.0-33.0); MCHC 31.7 % (32.0-36.0); MCV 93 fL (80-95); MPV 10.4 fL (8.0-11.0); Monocytes % 9.4; Platelet Count 231 10^3/uL (130-400); RBC 4.43 10^6/uL (3.93-5.22); RDW 13.7 % (11.7-14.6); RDW-SD 46.7 fL; WBC 7.73 10^3/uL (4.4-10.8)
--- NOTE | 2022-03-04 20:02 | W.ED.GENAD ---
Discharge Plan Disposition Patient Disposition: HOME Condition: Improving Discharge Details Clinical Impression: Head injury, Fall, Neck pain, Laceration of scalp Primary Care Provider: Pito Natarajan ED Provider: Alex Cruz Home Meds and New Rx's Prescriptions: Continued amlodipine 5 mg tablet 5 mg PO DAILY lidocaine 4 % cream 1 applic topical QID PRN diclofenac sodium 1 % gel 2 g topical QID Rx Instructions: apply to single elbow, wrist or hand; for hand includes palm/fingers/back of hand metronidazole [MetroCream] 0.75 % cream 1 applic topical DAILY polyethylene glycol 3350 [Miralax] 17 gram/dose powder 17 g PO DAILY acetaminophen 500 mg tablet 500 mg PO Q6H PRN (Reason: pain) Qty: 60 3RF lisinopril 20 mg tablet 20 tab PO HS Label Comments: TAKE 1 TABLET BY MOUTH EVERY DAY Discharge Instructions Instructions: Head Injury (ED), Staple Care (ED), Fall Prevention (ED), Neck Pain (ED) Additional Instructions: CT imaging and laboratory values unremarkable. Cool compresses as tolerated. You may apply antibiotic ointment. [id number] Tylenol as directed for discomfort. Please watch for new or worsening symptoms and return to the ER for any concerns. Lastly, please contact your primary care provider tomorrow to discuss your ER visit need for outpatient reevaluation. Maranda should be removed in 5 days. Medical Decision Making 82-year-old female presents status post mechanical slip and fall on a rug falling backwards striking her head, denies any LOC. Reports headache, neck pain, upper back pain. Plan is to obtain IV access, update tetanus status, obtain CT imaging of her head, neck, chest and obtain routine screening laboratory values. Laceration will need to be repaired CBC, CMP revealed no obvious emergent process. CT of the head, neck, chest unremarkable per radiology Tetanus updated Laceration repaired without difficulty Patient remains neurologically intact, feels well, requesting discharge home. Is ambulatory at baseline. Standard discharge and return precautions were provided. Patient understands, is agreeable to this plan, and has no additional questions or concerns upon discharge. This documentation was generated using [employer] system, please disregard any oddities of phrase or misspellings. Medical Records Medical records reviewed: Yes I reviewed the patient's medical records. Imaging Data Radiologic Study: Attestation: I personally reviewed and interpreted this imaging study as follows: Imaging: CT Scan Radiologist's impression: PROCEDURE INFORMATION: Exam: CT Chest With Contrast; Diagnostic Exam date and time: 03/04/2022 8:09 PM Age: 82 years old Clinical indication: Pain and injury or trauma; Fall; Blunt trauma (contusions or hematomas); Other: Upper back pain; Injury date: 03/04/22; Additional info: Fall, upper back pain TECHNIQUE: Imaging protocol: Diagnostic computed tomography of the chest with contrast. 3D rendering (Not supervised by radiologist): MIP and/or 3D reconstructed images were created by the technologist. Radiation optimization: All CT scans at this facility use at least one of these dose optimization techniques: automated exposure control; mA and/or kV adjustment per patient size (includes targeted exams where dose is matched to clinical indication); or iterative reconstruction. Contrast material: OMNI 350; Contrast volume: 100 ml; Contrast route: INTRAVENOUS (IV); COMPARISON: CR CHEST 2 VIEWS PA,LAT 11/09/2017 9:14 AM FINDINGS: Thyroid: 11 mm left thyroid lobe nodule. Lungs: Several small nodules within left lower lung largest nodule measures 6 mm, image 28. Nonspecific bilateral dependent pleuroparenchymal changes. Multiple small nodules at the right lung base, for example, 3 mm right lower lobe nodule on image 34. Bibasilar linear opacities of atelectasis and/or fibrosis. Pleural spaces: Unremarkable. No pneumothorax. No pleural effusion. Heart: No cardiomegaly. No pericardial effusion. Lymph nodes: Unremarkable. No enlarged lymph nodes. Vasculature: Atherosclerotic thoracic aorta. Gallbladder and bile ducts: Status post cholecystectomy. Bones/joints: Unremarkable. No acute fracture.Soft tissues: Unremarkable. IMPRESSION: No acute thoracic organ injury. See the body of the report for the remainder of ancillary findings Radiologic Study #2: Attestation: I personally reviewed and interpreted this imaging study as follows: Imaging: CT Scan Radiologist's impression: PROCEDURE INFORMATION: Exam: CT Head Without Contrast Exam date and time: 03/04/2022 8:05 PM Age: 82 years old Clinical indication: Injury or trauma; Blunt trauma (contusions or hematomas) and concussion/head injury; Consciousness not specified; Injury date: 03/04/22; Injury details: Fall/pain TECHNIQUE: Imaging protocol: Computed tomography of the head without contrast. Radiation optimization: All CT scans at this facility use at least one of these dose optimization techniques: automated exposure control; mA and/or kV adjustment per patient size (includes targeted exams where dose is matched to clinical indication); or iterative reconstruction. COMPARISON: CT HEAD AND CSPINE W/O CONTRAST 04/12/2017 8:59 AM FINDINGS: Brain: No intracranial hemorrhage. No subdural collections. Scattered white matter hypoattenuation noted. No midline shift. Cerebral ventricles: No ventriculomegaly. Paranasal sinuses: Visualized sinuses are unremarkable. No fluid levels. Mastoid air cells: Visualized mastoid air cells are well aerated. Bones/joints: No skull fracture. Soft tissues: Unremarkable. IMPRESSION: Negative for intracranial hemorrhage or other acute intracranial abnormality.Exam: CT Cervical Spine Without Contrast Exam date and time: 03/04/2022 8:05 PM Age: 82 years old Clinical indication: Injury or trauma; Blunt trauma (contusions or hematomas) and concussion/head injury; Consciousness not specified; Injury date: 03/04/22; Injury details: Fall/pain TECHNIQUE: Imaging protocol: Computed tomography of the cervical spine without contrast. Radiation optimization: All CT scans at this facility use at least one of these dose optimization techniques: automated exposure control; mA and/or kV adjustment per patient size (includes targeted exams where dose is matched to clinical indication); or iterative reconstruction. COMPARISON: CT HEAD AND CSPINE W/O CONTRAST 04/12/2017 8:59 AM FINDINGS: Bones/joints: Negative for cervical spine fracture. Negative for anterior or posterior translation of vertebral bodies. Multilevel degenerative disc disease and facet arthropathy noted. No significant spinal canal stenosis. Lungs: Fibrosis or scarring is noted in the lung apices. Vasculature: Calcifications are noted at the carotid bifurcations bilaterally, severe on the right. Soft tissues: Unremarkable. IMPRESSION: Negative for cervical spine fracture Lab Data Lab results reviewed: Yes I reviewed the patient's lab results. Labs: Laboratory Tests Range/Units 03/04/22 03/04/22 19:25 19:25 WBC (4.4-10.8) 10^3/uL 7.73 RBC (3.93-5.22) 10^6/uL 4.43 Hgb (11.2-15.7) g/dL 13.0 Hct (36.0-46.0) % 41.0 MCV (80-95) fL 93 MCH (27.0-33.0) pg 29.3 MCHC (32.0-36.0) % 31.7 L RDW (11.7-14.6) % 13.7 Plt Count (130-400) 10^3/uL 231 MPV (8.0-11.0) fL 10.4 Immature Gran % 0.3 Neutrophils % 61.0 Lymphocytes % 27.7 Monocytes % 9.4 Eosinophils % 1.2 Basophils % 0.4 Nucleated RBC % (0.0-0.3) % 0.0 Absolute Neutrophils (1.2-6.7) 10^3/uL 4.72 Absolute Lymphocytes (1.2-3.4) 10^3/uL 2.14 Absolute Monocytes (0.1-0.8) 10^3/uL 0.73 Absolute Eosinophils (0.0-0.7) 10^3/uL 0.09 Absolute Basophils (0.0-0.2) 10^3/uL 0.03 Sodium (136-145) mmol/L 143 Potassium (3.5-5.1) mmol/L 4.0 Chloride (98-107) mmol/L 106 Carbon Dioxide (21.0-32.0) mmol/L 29.0 Anion Gap (3-11) mmol/L 8.0 BUN (7-18) mg/dL 24 H Creatinine (0.55-1.02) mg/dL 1.3 H Est GFR (CKD-EPI 2020) (mL/min/1.73m2) 41.57 Glucose (74-106) mg/dL 97 Calcium (8.5-10.1) mg/dL 9.7 Total Bilirubin (0.2-1.0) mg/dL 0.3 AST (15-37) U/L 16 ALT (14-59) U/L 21 Alkaline Phosphatase (46-116) U/L 103 Total Protein (6.4-8.2) g/dL 7.1 Albumin (3.4-5.0) g/dL 3.8 ECG Data Attestation: I personally reviewed and interpreted this ECG (s) as follows: Interpretation: Sinus rhythm, ventricular rate of 75, no STEMI HPI General Mode of arrival: EMS. Date/Time Provider Initiated Documentation: 03/04/22 19:28. Limitations to Documentation: no limitations. Information obtained by: patient and EMS. History of Present Illness 82 year old F presents to the emergency department with the chief complaint of fall, head/neck/upper back pain, described as moderate, with intensity rated at 6. Quality is described as aching, and is localized to the head, neck and back. Patient reports no radiation. Patient started experiencing this hour(s) (1) and it has been constant. Immobilization improves symptom(s), Movement worsens symptoms . Patient notes no other symptoms.. Patient did receive the following treatments prior to arrival, none Related Data Home Medications Medication Instructions Recorded Confirmed acetaminophen 500 mg tablet 500 mg PO Q6H PRN pain #60 tabs 01/31/19 02/08/22 lisinopril 20 mg tablet 20 tab PO HS 11/29/21 03/04/22 amlodipine 5 mg tablet 5 mg PO DAILY 12/15/21 03/04/22 diclofenac sodium 1 % topical gel 2 g topical QID 12/15/21 02/08/22 lidocaine 4 % topical cream 1 applic topical QID PRN 12/15/21 03/04/22 metronidazole 0.75 % topical cream 1 applic topical DAILY 12/15/21 03/04/22 (MetroCream) polyethylene glycol 3350 17 17 g PO DAILY 12/15/21 02/08/22 gram/dose oral powder (Miralax) Previous Rx's Medication Instructions Recorded acetaminophen 500 mg tablet 500 mg PO Q6H PRN pain #60 tabs 01/31/19 Allergies Allergy/AdvReac Type Severity Reaction Status Date / Time Sulfa (Sulfonamide Allergy Severe Anaphylaxsi Unverified 02/08/22 08:42 Antibiotics) s metoprolol Allergy Unknown UNKNOWN Unverified 02/08/22 08:42 aspirin AdvReac Unknown UNKNOWN Unverified 02/08/22 08:42 ibuprofen AdvReac Unknown UNKNOWN Unverified 02/08/22 08:42 General Stated Complaint: HeadInjury SHYANNE: 2 Review of Systems Constitutional Constitutional: Denies fatigue, Denies fever(s), Reports headache(s) and Denies weakness Eyes Eyes: Denies change in vision ENT Ears, Nose, Mouth, and Throat: Reports headache(s) and Reports neck pain Cardiovascular Cardiovascular: Denies chest pain and Denies dyspnea Respiratory Respiratory: Denies cough and Denies dyspnea Gastrointestinal Gastrointestinal: Denies abdominal pain, Denies nausea and Denies vomiting Musculoskeletal Musculoskeletal: Reports back pain, Reports neck pain, Denies numbness and Denies tingling Integumentary/Breasts Skin/Breast: Denies rash Neurologic Neurologic: Reports headache(s), Denies numbness, Denies tingling and Denies weakness Endocrine Endocrine: Denies fatigue Hematologic/Lymphatic Hematologic/Lymphatic: Denies easy bleeding and Denies easy bruising PFSH All Active Problems (Updated 03/04/22 @ 22:21 by RENO Puentes) Head injury (Acute) Fall (Acute) Neck pain (Acute) Laceration of scalp (Acute) Bursitis of right shoulder (Acute) Tubular adenoma of colon (Acute) Adenomatous colon polyp (Acute) Diverticula of colon (Acute) Chronic constipation (Acute) Pain of soft tissue of extremity (Acute) mid ant kaye of LLE Superficial thrombophlebitis of left leg (Acute) De Quervain's tenosynovitis, right (Acute) Ganglion, right wrist (Acute 01/17/17) Primary osteoarthritis of left hip (Acute 10/29/15) Primary osteoarthritis of left knee (Acute 10/29/15) Subacromial impingement of right shoulder (Acute 08/01/17) Trochanteric bursitis, left hip (Acute 10/29/15) Urinary tract infection (Acute) Primary osteoarthritis of right knee (Acute) Injection: 08/14/2021; 12/01/2020 DVT (deep venous thrombosis) (Chronic) S/P right rotator cuff repair (Acute 01/31/19) Dr. Ramos Neuralgia (Chronic) R>L ear Migraine headache with aura (Chronic) Chronic daily headache (Chronic) Medical History Aortic stenosis mild-moderate Cataracts, bilateral GERD (gastroesophageal reflux disease) Hyperlipemia Hypertension Mild cognitive impairment Osteoarthritis Surgical History Cholecystectomy Diaphragmatic Hernia Repair H/O: hysterectomy Hiatal hernia History of colonoscopy with polypectomy (~03/06/21) S/P carpal tunnel release S/P cataract extraction S/P eye surgery R retina pucker Trigger Finger release Family History Father Heart disease Hypertension Mother Diabetes Heart disease Hypertension Social History Smoking/Tobacco Use Status: Former Tobacco Use Quit Date: 05/23/89 Smoking risk assessment performed?: Yes Alcohol Intake: never Details: DOES NOT DRINK Drug use: Never Substance use type: does not use Household members: spouse Housing: house 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 3 cm well approximated laceration. No active bleeding. No crepitus. No obvious foreign body Ears: external ears normal, TM's normal bilaterally and EAC's normal General nose exam: external nose normal Face and sinus: normal facial exam Mouth: moist mucous membranes Eyes General: appearance normal, both eyes and all related structures Conjunctivae: conjunctivae normal Neck Neck: normal visual inspection, trachea midline, supple and tender (Diffuse posterior) Other: In a hard c-collar Chest Chest: normal inspection of the chest and normal palpation of entire chest wall Resp Effort & Inspection: normal respiratory effort and able to speak in complete sentences Auscultation: clear to auscultation bilaterally Cardio Rate: regular rate Rhythm: regular rhythm GI Inspection: normal to inspection Palpation: soft, not firm, no guarding and nontender Back/Spine/Pelvis Back: no CVA tenderness and back tenderness Other: C-spine precautions maintained. Normal visual inspection. Superior left lateral thoracic tenderness. No crepitus Skin General skin exam: no rashes or lesions noted Neuro General: patient alert, patient awake, patient oriented x3, moves all extremities and no focal motor deficits Cranial Nerves: CN's II-XI intact bilaterally Cognition: normal cognition Speech: speech normal Gait: normal gait Motor: muscle tone normal throughout, strength 5/5 throughout, no movement abnormalities noted and no fasciculations Sensory Exam: no sensory deficits noted Extrem General: normal to inspection, full ROM and capillary refill normal Psych Appearance: grossly normal Mental Status: mental status grossly normal Course Vital Signs Vital signs: Vital Signs Temperature 36.8 C 03/04/22 19:13 Pulse 74 03/04/22 19:13 Respiratory Rate 22 03/04/22 19:13 Blood Pressure 155/68 H 03/04/22 19:13 Pulse Oximetry 98 03/04/22 19:13 Temperature 36.8 C 03/04/22 19:13 Temperature Source Temporal Artery Scan 03/04/22 19:13 Pulse 74 03/04/22 19:13 Respiratory Rate 22 03/04/22 19:13 Respiratory Effort 03/04/22 19:20 Respiratory Pattern Normal 03/04/22 19:20 Blood Pressure 155/68 H 03/04/22 19:13 Blood Pressure Position Supine 03/04/22 19:13 Pulse Oximetry 98 03/04/22 19:13 Oxygen Delivery Method Room Air 03/04/22 19:13 Oxygen Flow Rate 0 03/04/22 19:13 Pain Level 6 03/04/22 19:13 Lab/Test Results Lab/Test Results: Laboratory Tests Range/Units 03/04/22 19:25 WBC (4.4-10.8) 10^3/uL 7.73 RBC (3.93-5.22) 10^6/uL 4.43 Hgb (11.2-15.7) g/dL 13.0 Hct (36.0-46.0) % 41.0 MCV (80-95) fL 93 MCH (27.0-33.0) pg 29.3 MCHC (32.0-36.0) % 31.7 L RDW (11.7-14.6) % 13.7 Plt Count (130-400) 10^3/uL 231 MPV (8.0-11.0) fL 10.4 Immature Gran % 0.3 Neutrophils % 61.0 Lymphocytes % 27.7 Monocytes % 9.4 Eosinophils % 1.2 Basophils % 0.4 Nucleated RBC % (0.0-0.3) % 0.0 Absolute Neutrophils (1.2-6.7) 10^3/uL 4.72 Absolute Lymphocytes (1.2-3.4) 10^3/uL 2.14 Absolute Monocytes (0.1-0.8) 10^3/uL 0.73 Absolute Eosinophils (0.0-0.7) 10^3/uL 0.09 Absolute Basophils (0.0-0.2) 10^3/uL 0.03 Procedures Laceration Laceration 1: Site: scalp Side (If applicable): left Size (cm): 3 Description: linear Depth: simple, single layer Local Anesthetic: other anesthetic (LET) Amount of anesthesia used (mL): 5 Pre-repair: wound explored, irrigated extensively and deep structures intact Skin layer closed with: other (Maranda x4)
[2022-03-04] MEDS: Omnipaque 350 MG/ML 100 ML BTL IJ (20:14)
[2022-03-04 20:42] LABS: ALT 21 U/L (14-59); AST 16 U/L (15-37); Albumin 3.8 g/dL (3.4-5.0); Alkaline Phosphatase 103 U/L (46-116); BUN 24 mg/dL (7-18); Bilirubin, Total 0.3 mg/dL (0.2-1.0); CREATININE 1.3 mg/dL (0.55-1.02); Calcium 9.7 mg/dL (8.5-10.1); Chloride 106 mmol/L (98-107); Estimated GFR 41.57 (mL/min/1.73m2); Glucose 97 mg/dL (74-106); Sodium 143 mmol/L (136-145); Total Protein 7.1 g/dL (6.4-8.2)
[2022-03-04] MEDS: Normal Saline 1,000 ML 1000 ML IV (20:55)
--- NOTE | 2022-03-04 21:08 | DI.VRAD_ITS ---
PROCEDURE INFORMATION: Exam: CT Head Without Contrast Exam date and time: 03/04/2022 8:05 PM Age: 82 years old Clinical indication: Injury or trauma; Blunt trauma (contusions or hematomas) and concussion/head injury; Consciousness not specified; Injury date: 03/04/22; Injury details: Fall/pain TECHNIQUE: Imaging protocol: Computed tomography of the head without contrast. Radiation optimization: All CT scans at this facility use at least one of these dose optimization techniques: automated exposure control; mA and/or kV adjustment per patient size (includes targeted exams where dose is matched to clinical indication); or iterative reconstruction. COMPARISON: CT HEAD AND CSPINE W/O CONTRAST 04/12/2017 8:59 AM FINDINGS: Brain: No intracranial hemorrhage. No subdural collections. Scattered white matter hypoattenuation noted. No midline shift. Cerebral ventricles: No ventriculomegaly. Paranasal sinuses: Visualized sinuses are unremarkable. No fluid levels. Mastoid air cells: Visualized mastoid air cells are well aerated. Bones/joints: No skull fracture. Soft tissues: Unremarkable. IMPRESSION: Negative for intracranial hemorrhage or other acute intracranial abnormality. PROCEDURE INFORMATION: Exam: CT Cervical Spine Without Contrast Exam date and time: 03/04/2022 8:05 PM Age: 82 years old Clinical indication: Injury or trauma; Blunt trauma (contusions or hematomas) and concussion/head injury; Consciousness not specified; Injury date: 03/04/22; Injury details: Fall/pain TECHNIQUE: Imaging protocol: Computed tomography of the cervical spine without contrast. Radiation optimization: All CT scans at this facility use at least one of these dose optimization techniques: automated exposure control; mA and/or kV adjustment per patient size (includes targeted exams where dose is matched to clinical indication); or iterative reconstruction. COMPARISON: CT HEAD AND CSPINE W/O CONTRAST 04/12/2017 8:59 AM FINDINGS: Bones/joints: Negative for cervical spine fracture. Negative for anterior or posterior translation of vertebral bodies. Multilevel degenerative disc disease and facet arthropathy noted. No significant spinal canal stenosis. Lungs: Fibrosis or scarring is noted in the lung apices. Vasculature: Calcifications are noted at the carotid bifurcations bilaterally, severe on the right. Soft tissues: Unremarkable. IMPRESSION: Negative for cervical spine fracture. Dictated and Authenticated by: Crow Calles MD. Ordering:THEODORE Johnson MD
--- NOTE | 2022-03-04 21:13 | DI.VRAD_ITS ---
PROCEDURE INFORMATION: Exam: CT Chest With Contrast; Diagnostic Exam date and time: 03/04/2022 8:09 PM Age: 82 years old Clinical indication: Pain and injury or trauma; Fall; Blunt trauma (contusions or hematomas); Other: Upper back pain; Injury date: 03/04/22; Additional info: Fall, upper back pain TECHNIQUE: Imaging protocol: Diagnostic computed tomography of the chest with contrast. 3D rendering (Not supervised by radiologist): MIP and/or 3D reconstructed images were created by the technologist. Radiation optimization: All CT scans at this facility use at least one of these dose optimization techniques: automated exposure control; mA and/or kV adjustment per patient size (includes targeted exams where dose is matched to clinical indication); or iterative reconstruction. Contrast material: OMNI 350; Contrast volume: 100 ml; Contrast route: INTRAVENOUS (IV); COMPARISON: CR CHEST 2 VIEWS PA,LAT 11/09/2017 9:14 AM FINDINGS: Thyroid: 11 mm left thyroid lobe nodule. Lungs: Several small nodules within left lower lung largest nodule measures 6 mm, image 28. Nonspecific bilateral dependent pleuroparenchymal changes. Multiple small nodules at the right lung base, for example, 3 mm right lower lobe nodule on image 34. Bibasilar linear opacities of atelectasis and/or fibrosis. Pleural spaces: Unremarkable. No pneumothorax. No pleural effusion. Heart: No cardiomegaly. No pericardial effusion. Lymph nodes: Unremarkable. No enlarged lymph nodes. Vasculature: Atherosclerotic thoracic aorta. Gallbladder and bile ducts: Status post cholecystectomy. Bones/joints: Unremarkable. No acute fracture. Soft tissues: Unremarkable. IMPRESSION: No acute thoracic organ injury. See the body of the report for the remainder of ancillary findings. Dictated and Authenticated by: Vik Alas MD. Ordering:THEOODRE Johnson MD
[2022-03-04] MEDS: Lidocaine/Epinephri/Tetracaine Topical Gel 3 ML (21:53)
== END 2022-03-04 22:36 | disposition home or self-care (01) ==
PROVIDERS: Emergency Provider Physician Assistant; PCP Internal Medicine
DX: S01.01XA Laceration without foreign body of scalp, initial encounter (principal); W01.198A Fall on same level from slipping, tripping and stumbling with subsequent striking against other object, initial encounter; M54.2 Cervicalgia; S09.90XA Unspecified injury of head, initial encounter; I10 Essential (primary) hypertension; Z23 Encounter for immunization
CPT/HCPCS: 12002; 80053; 90471; 93005; 96360; 99284; 70450; 71260; 72125; 85025; 93010; J3490

== ENCOUNTER 2022-03-10 10:52 | Emergency (ER) | payer MEDICARE, SELFPAY ==
[2022-03-10 10:55] VITALS: BP 162/85; PULSE 66; RESP 18; TEMP 36.3; O2SAT 99
--- NOTE | 2022-03-10 11:02 | ED.GENADUL_ITS ---
Discharge Plan Disposition Patient Disposition: HOME Condition: Improving Discharge Details Clinical Impression: Visit for wound check Primary Care Provider: Pito Natarajan ED Provider: Derek Quevedo Home Meds and New Rx's Prescriptions: Continued amlodipine 5 mg tablet 5 mg PO DAILY lidocaine 4 % cream 1 applic topical QID PRN diclofenac sodium 1 % gel 2 g topical QID Rx Instructions: apply to single elbow, wrist or hand; for hand includes palm/fingers/back of hand metronidazole [MetroCream] 0.75 % cream 1 applic topical DAILY polyethylene glycol 3350 [Miralax] 17 gram/dose powder 17 g PO DAILY acetaminophen 500 mg tablet 500 mg PO Q6H PRN (Reason: pain) Qty: 60 3RF lisinopril 20 mg tablet 20 tab PO HS Label Comments: TAKE 1 TABLET BY MOUTH EVERY DAY Discharge Instructions Additional Instructions: May resume normal routine and activities. May gently wash with soap and water and pat dry. Return for any acute concerns Medical Decision Making 82-year-old female presents for uneventful removal of ca from scalp laceration. Performed by nursing staff without difficulty and patient stable for discharge to home. HPI General Mode of arrival: ambulatory . Date/Time Provider Initiated Documentation: 03/10/22 11:00 . Limitations to Documentation: no limitations . Information obtained by: patient . History of Present Illness 82 year old F presents to the emergency department with the chief complaint of Here for staple removal from scalp laceration, no other, Related Data Home Medications Medication Instructions Recorded Confirmed acetaminophen 500 mg tablet 500 mg PO Q6H PRN pain #60 tabs 01/31/19 03/10/22 lisinopril 20 mg tablet 20 tab PO HS 11/29/21 03/10/22 amlodipine 5 mg tablet 5 mg PO DAILY 12/15/21 03/10/22 diclofenac sodium 1 % topical gel 2 g topical QID 12/15/21 03/10/22 lidocaine 4 % topical cream 1 applic topical QID PRN 12/15/21 03/10/22 metronidazole 0.75 % topical cream 1 applic topical DAILY 12/15/21 03/10/22 (MetroCream) polyethylene glycol 3350 17 17 g PO DAILY 12/15/21 03/10/22 gram/dose oral powder (Miralax) Previous Rx's Medication Instructions Recorded acetaminophen 500 mg tablet 500 mg PO Q6H PRN pain #60 tabs 01/31/19 Allergies Allergy/AdvReac Type Severity Reaction Status Date / Time Sulfa (Sulfonamide Allergy Severe Anaphylaxsi Unverified 03/10/22 11:00 Antibiotics) s metoprolol Allergy Unknown UNKNOWN Unverified 03/10/22 11:00 aspirin AdvReac Unknown UNKNOWN Unverified 03/10/22 11:00 ibuprofen AdvReac Unknown UNKNOWN Unverified 03/10/22 11:00 General Stated Complaint: SutureRem SHYANNE: 5 PFSH All Active Problems (Updated 03/10/22 @ 11:04 by Derek Quevedo MD) Head injury (Acute) Fall (Acute) Neck pain (Acute) Laceration of scalp (Acute) Visit for wound check (Acute) Bursitis of right shoulder (Acute) Tubular adenoma of colon (Acute) Adenomatous colon polyp (Acute) Diverticula of colon (Acute) Chronic constipation (Acute) Pain of soft tissue of extremity (Acute) mid ant kaye of LLE Superficial thrombophlebitis of left leg (Acute) De Quervain's tenosynovitis, right (Acute) Ganglion, right wrist (Acute 01/17/17) Primary osteoarthritis of left hip (Acute 10/29/15) Primary osteoarthritis of left knee (Acute 10/29/15) Subacromial impingement of right shoulder (Acute 08/01/17) Trochanteric bursitis, left hip (Acute 10/29/15) Urinary tract infection (Acute) Primary osteoarthritis of right knee (Acute) Injection: 08/14/2021; 12/01/2020 DVT (deep venous thrombosis) (Chronic) S/P right rotator cuff repair (Acute 01/31/19) Dr. Ramos Neuralgia (Chronic) R>L ear Migraine headache with aura (Chronic) Chronic daily headache (Chronic) Medical History Aortic stenosis mild-moderate Cataracts, bilateral GERD (gastroesophageal reflux disease) Hyperlipemia Hypertension Mild cognitive impairment Osteoarthritis Surgical History Cholecystectomy Diaphragmatic Hernia Repair H/O: hysterectomy Hiatal hernia History of colonoscopy with polypectomy (~03/06/21) S/P carpal tunnel release S/P cataract extraction S/P eye surgery R retina pucker Trigger Finger release Family History Father Heart disease Hypertension Mother Diabetes Heart disease Hypertension Social History Smoking/Tobacco Use Status: Former Tobacco Use Quit Date: 05/23/89 Smoking risk assessment performed?: Yes Alcohol Intake: never Details: DOES NOT DRINK Drug use: Never Substance use type: does not use Household members: spouse Housing: house 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 Pleasant, well groomed, interactive. HEAD: Normocephalic, healing scalp laceration left superior with ca EYES: PERRL, EOMI NECK: Full ROM, no STEPH, no menigismus CHEST/RESP: No respiratory EXT: Full ROM, no edema, no rash Neuro: Grossly normal neurologic exam, conversant, interactive. Psych: Speech fluent, thoughts congruent, affect normal Course Vital Signs Vital signs: Vital Signs Temperature 36.3 C L 03/10/22 10:55 Pulse 66 03/10/22 10:55 Respiratory Rate 18 03/10/22 10:55 Blood Pressure 162/85 H 03/10/22 10:55 Pulse Oximetry 99 03/10/22 10:55 Temperature 36.3 C L 03/10/22 10:55 Temperature Source Tympanic 03/10/22 10:55 Pulse 66 03/10/22 10:55 Respiratory Rate 18 03/10/22 10:55 Respiratory Effort Non-Labored 03/10/22 10:58 Blood Pressure 162/85 H 03/10/22 10:55 Blood Pressure Position Sitting 03/10/22 10:55 Pulse Oximetry 99 03/10/22 10:55 Oxygen Delivery Method Room Air 03/10/22 10:55 Oxygen Flow Rate 0 03/10/22 10:55 Pain Level 0 03/10/22 10:55
== END 2022-03-10 11:05 | disposition home or self-care (01) ==
PROVIDERS: Emergency Provider Emergency Medicine; PCP Internal Medicine
DX: S01.01XD Laceration without foreign body of scalp, subsequent encounter (principal); I10 Essential (primary) hypertension; Z87.891 Personal history of nicotine dependence; X58.XXXD Exposure to other specified factors, subsequent encounter
CPT/HCPCS: 99281

== ENCOUNTER → 2022-03-29 08:48 | Outpatient (BNVA) | payer MEDICARE, SELFPAY | PROVIDERS: PCP Internal Medicine; Referring Provider Internal Medicine; Visit Provider Student in an Organized Health Care Education/Training Program | DX: M17.11 Unilateral primary osteoarthritis, right knee (principal); M25.511 Pain in right shoulder | CPT/HCPCS: 20610; J1040 ==

== ENCOUNTER 2022-07-20 01:43 | Outpatient (CLI) | payer MEDICARE, SELFPAY ==
--- NOTE | 2022-07-20 12:15 | DI.US_ITS ---
Exam(s) US THYROID EXAM: US THYROID CLINICAL HISTORY: LT THYROID NODULE, E04.1. TECHNIQUE: Ultrasound thyroid performed using standard protocol. COMPARISON: No exams were available for comparison FINDINGS: ISTHMUS: 2.8 mm RIGHT LOBE: Size: 4.6 x 1.6 x 1.7 cm Echogenicity: Normal. Vascularity: Normal. Nodules: There are 2 nodule seen in the right lobe. They are less than 1 cm in size. Due to their s ize, no follow-up or FNA is recommended. LEFT LOBE: Size: 5.5 x 1.6 x 1.7 cm Echogenicity: Normal. Vascularity: Normal. Nodules: There is a 2.6 x 1.6 x 2.4 cm solid isoechoic nodule in the inferior pole of the left lobe. This is consistent with a TI rads 3 level nodule. Due to its size, FNA is recommended. In the midp ole of the left lobe of the thyroid gland, there is a 1.3 x 1.2 x 1.1 cm solid isoechoic nodule. It is taller than wide. This is consistent with a TI rads 4 level nodule. Due to its size follow-up is recommended. OTHER FINDINGS: In the isthmus there is a 1.8 x 0.7 x 1.8 cm solid isoechoic nodule. This is consist ent with a TI rads level 3 nodule. Due to its size, follow-up is recommended. IMPRESSION: Multiple thyroid nodules. There is a 2.6 x 1.6 x 2.4 cm nodule in the inferior left lobe. Due to it s size, FNA is recommended. DATA REPOSITORY:
== END 2022-07-20 02:03 ==
LOC: DI 01:44
PROVIDERS: PCP Internal Medicine; Visit Provider Internal Medicine
DX: E04.2 Nontoxic multinodular goiter (principal)
CPT/HCPCS: 76536

== ENCOUNTER 2022-07-26 18:13 | Outpatient (REF) | payer MEDICARE, SELFPAY ==
[2022-07-26 15:21] LABS: Anion Gap 9.5 mmol/L (3-11); BUN 15 mg/dL (7-18); CO2 27.5 mmol/L (21.0-32.0); CREATININE 1.1 mg/dL (0.55-1.02); Calcium 9.5 mg/dL (8.5-10.1); Chloride 106 mmol/L (98-107); FREE T4 1.08 ng/dL (0.76-1.46); Glucose 90 mg/dL (74-106); Potassium 4.6 mmol/L (3.5-5.1); Sodium 143 mmol/L (136-145); TSH 2.05 uIU/mL (0.36-3.74)
== END 2022-07-26 18:14 | disposition home or self-care (01) ==
LOC: NCHCN 18:13
PROVIDERS: PCP Internal Medicine; Visit Provider Internal Medicine
DX: I10 Essential (primary) hypertension (principal); E04.1 Nontoxic single thyroid nodule; I87.2 Venous insufficiency (chronic) (peripheral); I35.0 Nonrheumatic aortic (valve) stenosis; M79.662 Pain in left lower leg
CPT/HCPCS: 80048; 84439; 84443

== ENCOUNTER → 2022-08-06 09:25 | Outpatient (BNVA) | payer MEDICARE, SELFPAY | PROVIDERS: PCP Internal Medicine; Referring Provider Internal Medicine | DX: M17.11 Unilateral primary osteoarthritis, right knee (principal) | CPT/HCPCS: 20610; J1040 ==

== ENCOUNTER 2022-09-10 00:35 | Outpatient (CLI) | payer MEDICARE, SELFPAY ==
--- NOTE | 2022-09-10 07:37 | DI.US_ITS ---
APPROVED REPORT EXAM: Comprehensive 2D, Doppler, and color-flow Echocardiogram Patient Location: Out-Patient Submarine Worker: Roel Calero RDMS, RVT Indications: Aortic stenosis, asymptomatic, recheck degree of and ascending AO dilatation Other Information Study Quality: Adequate Conclusion Normal left ventricular wall thickness and chamber size. Estimated ejection fraction is 55%. Wall m otion is normal Normal right ventricular size and systolic function Both atria are normal in size Aortic valve is sclerotic and trileaflet. There is moderate aortic stenosis. Peak gradient is 35, m john 23 mmHg. Calculated aortic valve area is 0.88 cm??. There is no aortic regurgitation Mildly thickened mitral leaflets and mitral annular calcification. There is moderate mitral regurgit ation Normal tricuspid valve with mild to moderate regurgitation. Estimated right ventricular systolic pre ssure is 33 mmHg Aortic root and ascending aorta are normal in size Wall motion Left Ventricle The left ventricle is normal size. The left ventricular systolic function is normal. The left ventric ular ejection fraction is within the normal range. There is normal left ventricular wall thickness. T here are no segmental wall motion abnormalities There is no ventricular septal defect visualized. LVE F is 55%. Right Ventricle The right ventricle is normal size. The right ventricular systolic function is normal. The RVSP is 32 .7 mmHg. Atria Left atrium is mildly dilated. Right atrium is mildly dilated. The interatrial septum is intact with no evidence for an atrial septal defect. Aortic Valve Aortic valve is calcified. Aortic valve is trileaflet Moderate aortic stenosis. Peak aortic valve gr adient is 35.4 mmHg. Highest mean aortic valve gradient is 22.8 mmHg. Calculated TERESA by the continuit y equation is 0.88 cm2. No aortic regurgitation is present. Mitral Valve Mitral valve leaflets are mildly thickened. Mild mitral annular calcification. No evidence of mitral valve stenosis. Moderate mitral regurgitation. Tricuspid Valve The tricuspid valve is normal in structure. There is no tricuspid valve stenosis. Mild to moderate tr icuspid regurgitation. Pulmonic Valve The pulmonary valve is normal in structure. There is no pulmonic valvular stenosis. Mild pulmonic reg urgitation. Great Vessels The aortic root is normal in size. The ascending aorta is normal Aortic arch is not well visualized. IVC is normal in size and collapses >50% with inspiration. Pericardium There is no pericardial effusion. 2D Dimensions IVSD d PLAX 0.75 cm F: 0.6-1.0 LV Vol A2C d MOD 111.6 mL LVPW d PLAX 0.76 cm F: 0.6 - 1.0 LV Vol A4C d MOD 118.3 mL LVID d PLAX 4.63 cm F: 3.8 - 5.2 LA vol/ BSA A4C s A-L 34.8 mL/m2 LVDs 3.45 cm F: 2.2 - 3.5 LA Area A4C s MOD 21.35 cm2 Ao Root d 2.46 cm F: 2.7 - 3.3 LV EF A4C MOD 46.5 % Ao Asc Diam d 3.20 cm F: 2.3 - 3.1 LV EF A2C MOD 45.5 % LV EF Teichholz 49.7 % LV EF Biplane MOD 47.2 % LVEF (Turk's) 47.16 % F: 54 - 74 SV 55.69 mL LV Volume 91.34 mL F: 46 - 106 SV Index 30.47 mL/m2 LV Volume Index 49.91 mL/m2 F: 29 - 61 LV Vol Biplane MOD 118.1 mL FS 25.10 % M-Mode TAPSE 2.19 cm (M/F) >1.7 LV Diastology MV E' medial 0.078 (>0.07 m/s) E/A Ratio 1.3 LV E/e MED 13.00 (<14) MV E Vmax 1.02 (0.4-1.3 m/s) MV E' lateral 0.096 (>0.1 m/s) MV A Vmax 0.80 (0.4-1.3 m/s) LV E/e LAT 10.60 (<14) MV E/A Ratio 1.27 MV E/E' medial 13.04 MV E/E' lateral 10.64 Aortic Valve LVOT Area 3.08 cm2 AoV Area Vmax 0.88 cm2 LVOT Vmax 0.85 m/s AoV Area/ BSA (Vmax) 0.48 cm2/m2 LVOT Mean Bright. 0.57 m/s TERESA Mean Bright. 0.77 cm2 LVOT Peak Grad 2.9 mmHg TERESA Mean Bright. Index 0.42 cm2/m2 LVOT Mean Grad 1.4 mmHg LVOT VTI 0.192 m LVOT Diam s 1.95 cm AoV Vmax 2.98 m/s Velocity Ratio 0.29 AoV Mean Bright. 2.29 m/s AoV Peak Grad 35.4 mmHg LVOT SV 59.04 mL AoV Mean Grad 22.8 mmHg AoV VTI 0.825 m AoV Area VTI 0.72 cm2 AoV Area/ BSA (VTI) 0.39 cm/m2 Mitral Valve MV DT 91 (160-240 msec) MR Vmax 5.66 m/s MV PHT 26 msec MR VTI 2.088 m MV Area PHT 8.32 cm2 MR Peak Grad 128.2 mmHg MV VTI 0.344 m MR Mean Grad 90.2 mmHg MV Area VTI 1.72 (4.0-6.0 cm2) MR PISA Radius 0.34 cm MR EROA 0.05 cm2 MR Aliasing Velocity 0.35 m/s MR PISA 0.74 cm2 Pulmonary Valve PV Vmax 0.95 (0.5-1.5 m/s) RVOT Peak Gr. 1.65 mmHg PV Peak Grad 3.6 mmHg RVOT Mean Gr. 0.90 mmHg PV Mean Grad 2.7 mmHg RVOT VTI 0.133 m PV VTI 0.243 m RVOT Vmax 0.64 m/s Tricuspid Valve TR Peak Grad 29.7 mmHg TR Vmax 2.73 m/s RA Pressure 3.00 mmHg RVSP (TR) 32.7 mmHg
== END 2022-09-10 00:55 ==
LOC: DI 00:36
PROVIDERS: PCP Internal Medicine; Visit Provider Internal Medicine
DX: I35.0 Nonrheumatic aortic (valve) stenosis (principal)
CPT/HCPCS: 93306

== ENCOUNTER 2022-10-04 14:09 | Outpatient (CLI) | payer MEDICARE, SELFPAY ==
--- NOTE | 2022-10-04 14:00 | DI.RAD_ITS ---
Exam(s) XR HIP RT COMPLETE AP PELVIS EXAM: XR HIP RT COMPLETE AP PELVIS INDICATION: eval R hip pain. COMPARISON: CR XR HIP RT COMPLETE AP PELVIS from 10/13/2020 TECHNIQUE: 2D digital imaging was performed. 2 views. FINDINGS: The right hip joint space is maintained. There is mild acetabular spurring. There is mild narrowing of the left hip joint space which shows mild to moderate spurring. The SI joints are unremarkable. IMPRESSION: Mild degenerative changes of the right hip. [id number] degenerative changes of the left hip. DATA REPOSITORY: RADIATION DOSE DELIVERED:
--- NOTE | 2022-10-04 14:00 | DI.RAD_ITS ---
Exam(s) XR STANDING ALIGNMENT EXAM: XR STANDING ALIGNMENT CLINICAL HISTORY: eval R knee OA alignment for TKA. TECHNIQUE: 2D digital imaging was performed. Standing AP views were performed from the pelvis throu gh the ankles. COMPARISON: CR XR KNEE RT 3V AP,LAT,HARDIK from 10/13/2020 CR XR TIB/FIB LT from 10/26/2021 FINDINGS: BONES: No acute fracture is present. No bony destructive lesion is seen. Leg length discrepancy: No significant JOINTS: Knees: Mild medial femoral tibial joint space narrowing on the right and moderate on the left . Periarticular spurring noted. The ankle joints are unremarkable. The hip joints show mild degenerative changes, left greater than right.. SOFT TISSUE: Normal. IMPRESSION: Degenerative changes of the medial femoral tibial joint spaces of both knees, left greater than righ t. Degenerative changes of the hips, left greater than right. No significant leg length discrepancy. DATA REPOSITORY: RADIATION DOSE DELIVERED:
== END 2022-10-04 14:10 | disposition home or self-care (01) ==
LOC: DIORS 14:09
PROVIDERS: PCP Internal Medicine; Referring Provider Internal Medicine; Visit Provider Student in an Organized Health Care Education/Training Program
DX: M17.11 Unilateral primary osteoarthritis, right knee (principal); M25.551 Pain in right hip; M25.552 Pain in left hip
CPT/HCPCS: 99215; 73502; 77073

== ENCOUNTER → 2022-10-22 07:58 | Outpatient (BNVA) | payer MEDICARE, SELFPAY | PROVIDERS: PCP Internal Medicine; Referring Provider Internal Medicine; Visit Provider Physical Therapy Assistant | DX: L97.829 Non-pressure chronic ulcer of other part of left lower leg with unspecified severity | CPT/HCPCS: 93922 ==

== ENCOUNTER 2022-10-25 15:01 | Outpatient (REF) | payer MEDICARE, SELFPAY ==
[2022-10-25 16:48] LABS: Anion Gap 9.3 mmol/L (3-11); BUN 23 mg/dL (7-18); CO2 28.7 mmol/L (21.0-32.0); CREATININE 1.1 mg/dL (0.55-1.02); Calcium 9.9 mg/dL (8.5-10.1); Chloride 105 mmol/L (98-107); Glucose 97 mg/dL (74-106); Potassium 4.2 mmol/L (3.5-5.1); Sodium 143 mmol/L (136-145)
== END 2022-10-25 15:02 | disposition home or self-care (01) ==
LOC: NCHCN 15:01
PROVIDERS: PCP Internal Medicine; Visit Provider Internal Medicine
DX: I10 Essential (primary) hypertension (principal); I35.0 Nonrheumatic aortic (valve) stenosis; G31.84 Mild cognitive impairment of uncertain or unknown etiology
CPT/HCPCS: 80048

== ENCOUNTER 2022-12-09 22:06 | Outpatient (REF) | payer MEDICARE, SELFPAY ==
[2022-12-09 23:09] LABS: Bacteria Moderate HPF (Negative); C & S Indicated? C&S Done As Ordered; Casts Negative LPF (Negative); Crystals Negative HPF (Negative); Epithelial Cells Few HPF (Negative); Mucus Negative (Negative)
== END 2022-12-09 22:07 | disposition home or self-care (01) ==
LOC: LBN 22:06
PROVIDERS: PCP Internal Medicine; Visit Provider Physician Assistant Medical
DX: R35.0 Frequency of micturition (principal)
CPT/HCPCS: 87077; 81015; 87086; 87186

== ENCOUNTER → 2023-02-10 11:01 | Outpatient (BNVA) | payer MEDICARE, SELFPAY | PROVIDERS: PCP Internal Medicine; Referring Provider Internal Medicine; Visit Provider Student in an Organized Health Care Education/Training Program | DX: M17.11 Unilateral primary osteoarthritis, right knee (principal) | CPT/HCPCS: 99214 ==

== ENCOUNTER 2023-04-01 04:05 | Outpatient (CLI) | payer MEDICARE, SELFPAY ==
[2023-04-01 11:40] LABS: HCT 41.1 % (36.0-46.0); MCH 28.8 pg (27.0-33.0); MCHC 31.6 % (32.0-36.0); MCV 91 fL (80-95); MPV 9.8 fL (8.0-11.0); Platelet Count 202 10^3/uL (130-400); RBC 4.51 10^6/uL (3.93-5.22); RDW 13.8 % (11.7-14.6); RDW-SD 46.5 fL; WBC 5.94 10^3/uL (4.4-10.8)
[2023-04-01 12:19] LABS: Anion Gap 10.1 mmol/L (3-11); BUN 23 mg/dL (7-18); CO2 26.9 mmol/L (21.0-32.0); CREATININE 1.2 mg/dL (0.55-1.02); Calcium 10.1 mg/dL (8.5-10.1); Chloride 105 mmol/L (98-107); Estimated GFR 45.48 (mL/min/1.73m2); Glucose 103 mg/dL (74-106); Potassium 4.1 mmol/L (3.5-5.1); Sodium 142 mmol/L (136-145)
== END 2023-04-01 04:06 | disposition home or self-care (01) ==
LOC: LBO 04:05
PROVIDERS: PCP Internal Medicine; Visit Provider Student in an Organized Health Care Education/Training Program
DX: M17.11 Unilateral primary osteoarthritis, right knee (principal); Z01.818 Encounter for other preprocedural examination
CPT/HCPCS: 36415; 80048; 85027

== ENCOUNTER → 2023-09-12 14:47 | Outpatient (BNVA) | payer MEDICARE, SELFPAY | PROVIDERS: PCP Internal Medicine; Referring Provider Internal Medicine; Visit Provider Student in an Organized Health Care Education/Training Program | DX: M17.11 Unilateral primary osteoarthritis, right knee (principal) | CPT/HCPCS: 99214 ==

== ENCOUNTER 2023-09-26 05:13 | Outpatient (CLI) | payer MEDICARE, SELFPAY ==
[2023-09-26 13:18] LABS: HCT 42.2 % (36.0-46.0); HGB 13.1 g/dL (11.2-15.7); MCH 29.3 pg (27.0-33.0); MCV 94 fL (80-95); MPV 10.4 fL (8.0-11.0); Platelet Count 186 10^3/uL (130-400); RBC 4.47 10^6/uL (3.93-5.22); RDW 13.7 % (11.7-14.6); RDW-SD 47.6 fL; WBC 7.77 10^3/uL (4.4-10.8)
[2023-09-26 13:45] LABS: Anion Gap 9.7 mmol/L (3-11); BUN 27 mg/dL (7-18); CO2 29.3 mmol/L (21.0-32.0); CREATININE 1.3 mg/dL (0.55-1.02); Calcium 9.8 mg/dL (8.5-10.1); Chloride 107 mmol/L (98-107); Estimated GFR 41.31 (mL/min/1.73m2); Glucose 95 mg/dL (74-106); Potassium 3.8 mmol/L (3.5-5.1); Sodium 146 mmol/L (136-145)
== END 2023-09-26 05:14 | disposition home or self-care (01) ==
PROVIDERS: PCP Family Medicine; Visit Provider Student in an Organized Health Care Education/Training Program
DX: M25.561 Pain in right knee (principal); M17.11 Unilateral primary osteoarthritis, right knee; Z01.818 Encounter for other preprocedural examination; Z01.812 Encounter for preprocedural laboratory examination
CPT/HCPCS: 36415; 80048; 85027

== ENCOUNTER 2023-10-05 07:38 | Day surgery (SDC) | payer MEDICARE, SELFPAY ==
[2023-10-05] VITALS (13 sets, daily range): BP systolic 159–200; BP diastolic 49–91; PULSE 53–69; RESP 12–26; TEMP 36.1–36.9; O2SAT 96–100; BMI 32.8
[2023-10-05] MEDS: Celecoxib 200 MG CAP 400 MG PO (08:47)
[2023-10-05] MEDS: Lactated Ringers 1,000 ML 80 ML IV (08:47)
[2023-10-05] MEDS: Acetaminophen 500 MG TAB 1000 MG PO (08:48)
--- NOTE | 2023-10-05 08:59 | W.ANESPRE ---
General Info Date of Service Date Performed: 10/05/23 Height: 5 ft 2 in Weight: 81.6 kg Body Mass Index (BMI): 32.8 Surgical Procedure: Operation Date: 10/05/23 09:55 Proposed Procedure Side Surgeon p Knee Total Arthroplasty Right Chris Ramos MD Meds Allergies and Home Medications Allergies Allergy/AdvReac Type Severity Reaction Status Date / Time Sulfa (Sulfonamide Allergy Severe Anaphylaxsi Unverified 10/05/23 08:00 Antibiotics) s metoprolol Allergy Unknown UNKNOWN Unverified 10/05/23 08:00 aspirin AdvReac Unknown UNKNOWN Unverified 10/05/23 08:00 ibuprofen AdvReac Unknown UNKNOWN Unverified 10/05/23 08:00 Home Medication Medication Instructions Recorded lidocaine 4 % topical cream 1 applic topical QID PRN 12/15/21 metronidazole 0.75 % topical cream 1 applic topical DAILY 12/15/21 (MetroCream) polyethylene glycol 3350 17 17 g PO DAILY PRN 12/15/21 gram/dose oral powder (Miralax) olmesartan 40 mg tablet 40 mg PO DAILY 02/10/23 rosuvastatin 10 mg tablet 10 mg PO DAILY 02/10/23 diclofenac sodium 1 % topical gel 2 g topical QID #100 grams 02/23/23 acetaminophen 500 mg tablet 1,000 mg (2 x 500 mg) PO TID #90 10/05/23 tabs aspirin 81 mg tablet,delayed 81 mg PO BID #60 tabs 10/05/23 release celecoxib 200 mg capsule 200 mg PO BID #60 caps 10/05/23 dexamethasone 4 mg tablet 4 mg PO DAILY #2 tabs 10/05/23 gabapentin 300 mg capsule 300 mg PO QHS #14 caps 10/05/23 oxycodone 5 mg tablet 5 mg PO Q4H PRN pain #20 tabs 10/05/23 pantoprazole 40 mg tablet,delayed 40 mg PO DAILY #30 tabs 10/05/23 release Current Visit Medications: Current Medications Generic Name Dose Route Start Last Admin Trade Name Freq PRN Reason Stop Dose Admin Acetaminophen 1,000 mg 10/05/23 06:00 10/05/23 08:48 Acetaminophen 500 Mg Tab PO 11/03/23 23:59 1,000 mg PREOP JAZMÍN Administration Celecoxib 400 mg 10/05/23 06:00 10/05/23 08:47 Celecoxib 200 Mg Cap PO 11/03/23 23:59 400 mg PREOP JAZMÍN Administration Ringer's Solution 1,000 mls @ 80 mls/hr 10/05/23 06:00 10/05/23 08:47 IV 11/03/23 23:59 80 mls/hr INFUSION JAZMÍN Administration Cefazolin Sodium/Dextrose 2 gm in 50 mls @ 100 mls/hr 10/05/23 06:00 Ancef Duplex IVPB 11/03/23 23:59 PREOP JAZMÍN Tranexamic Acid/Sodium Chloride 1,000 mg in 100 mls @ 600 mls/hr 10/05/23 06:00 IVPB 11/03/23 23:59 PREOP JAZMÍN IV Miscellaneous Supplies 1 each 10/05/23 06:00 Iv Access IV 11/03/23 23:59 DIRECTED JAZMÍN Sodium Chloride 0 ml 10/05/23 06:00 Normal Saline Flush 10 Ml Syr IV 11/03/23 23:59 PRN PRN Sodium Chloride 0 ml 10/05/23 06:00 Normal Saline 10 Ml Vial IJ 11/03/23 23:59 DIRECTED PRN Sterile Water 0 ml 10/05/23 06:00 Water,Injection,Sterile 10 Ml Vial IJ 11/03/23 23:59 DIRECTED PRN PFSH Active Problems Active Problems: Problem Status Onset Code 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 L97.901 Ulcer of left lower leg L97.929 Bursitis of right shoulder M75.51 Tubular adenoma of colon D12.6 Adenomatous colon polyp D12.6 Diverticula of colon K57.30 Chronic constipation K59.09 Pain of soft tissue of extremity M79.609 Superficial thrombophlebitis of left leg I80.02 De Quervain's tenosynovitis, right M65.4 Ganglion, right wrist 01/17/17 M67.431 Primary osteoarthritis of left hip 10/29/15 M16.12 Primary osteoarthritis of left knee 10/29/15 M17.12 Subacromial impingement of right shoulder 08/01/17 M75.41 Trochanteric bursitis, left hip 10/29/15 M70.62 Urinary tract infection N39.0 Primary osteoarthritis of right knee M17.11 DVT (deep venous thrombosis) I82.409 S/P right rotator cuff repair 01/31/19 Z98.890 Neuralgia M79.2 Migraine headache with aura G43.109 Chronic daily headache R51 Medical History Medical History Aortic stenosis mild-moderate Cataracts, bilateral GERD (gastroesophageal reflux disease) Mild cognitive impairment Osteoarthritis Hypertension Hyperlipemia Surgical History Surgical History 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 History of colonoscopy with polypectomy (~03/06/21) S/P carpal tunnel release S/P cataract extraction Hiatal hernia H/O: hysterectomy S/P eye surgery R retina pucker Trigger Finger release Diaphragmatic Hernia Repair Cholecystectomy Tobacco Smoking/Tobacco Use Status: Former Tobacco Use Alcohol Alcohol Intake: never Details: DOES NOT DRINK Substance Use Substance use: Never Substance use type: does not use Vital Signs and Lab Results Vital Signs Most Recent Vital Signs in EMR: Most Recent Vital Signs Temp Pulse Resp BP Pulse Ox 36.1 C L 69 18 189/69 H 99 10/05/23 08:37 10/05/23 08:37 10/05/23 08:37 10/05/23 08:37 10/05/23 08:37 Lab Results Blood Type / Crossmatch: No Data to Display Complete Blood Count: White Blood Count 7.77 10^3/uL (4.4-10.8) 09/26/23 13:05 Red Blood Count 4.47 10^6/uL (3.93-5.22) 09/26/23 13:05 Hemoglobin 13.1 g/dL (11.2-15.7) 09/26/23 13:05 Hematocrit 42.2 % (36.0-46.0) 09/26/23 13:05 Platelet Count 186 10^3/uL (130-400) 09/26/23 13:05 Complete Metabolic Panel: Sodium 146 mmol/L (136-145) H 09/26/23 13:05 Potassium 3.8 mmol/L (3.5-5.1) 09/26/23 13:05 Chloride 107 mmol/L (98-107) 09/26/23 13:05 Carbon Dioxide 29.3 mmol/L (21.0-32.0) 09/26/23 13:05 BUN 27 mg/dL (7-18) H 09/26/23 13:05 Creatinine 1.3 mg/dL (0.55-1.02) H 09/26/23 13:05 Est GFR (CKD-EPI 2020) 41.31 (mL/min/1.73m2) 09/26/23 13:05 Calcium 9.8 mg/dL (8.5-10.1) 09/26/23 13:05 Glucose 95 mg/dL (74-106) 09/26/23 13:05 Liver Function Panel: No Data to Display Coagulation Panel: No Data to Display Cardiac Panel: No Data to Display Arterial Blood Gas: No Data to Display Venous Blood Gas: No Data to Display Pancreas Panel: No Data to Display Thyroid Panel: No Data to Display Infectious Disease: No Data to Display Blood Cultures: No Data to Display Toxicology Panel: No Data to Display Imaging and Studies Imaging and Studies Study information below may be from another EMR and interpreted by another provider. Please see original notes in EMR for more complete details. Echocardiogram Summary: 12/23/2022: EF 55-60%, Moderate hypertrophy of the LV, the gradient recorded across the prosthetic aortic valve was within the expected range. No aortic valve regurgitation. Anesthesia Assessment and Plan Anesthesia History Personal History: No History of Anesthesia Complications Family History: No Family History of Anesthesia Complications Exercise Tolerance Exercise Tolerance: Metabolic Equivalents>4 Pertinent Negatives Pertinent Negatives: No Symptoms of GERD and No Major Pulmonary Symptoms or Complaints Cardiac & Pulmonary Exam Cardiac Exam: Normal S1/S2 Heart Sounds (valve present) Pulmonary Exam: Clear Bilateral Breath Sounds Implantable Cardiac Device Does patient have a Pacemaker or an ICD?: No Airway Exam Known Difficult Airway: No Mallampati Class: 1 Mouth Opening: Normal (> 3cm) Thyromental Distance: Greater than 3 cm Neck Range of Motion: Full ROM Neck Circumference: Normal Teeth Condition: Removable Dentures/Plates Upper and Removable Dentures/Plates Lower ASA Classification ASA Score: ASA 3 Emergency Case?: No NPO Status NPO Status: NPO Clears >2 hours, Solids >8 hours Anesthesia Plan Resuscitation Status: Full Code Anesthesia Technique: Spinal Anesthesia Airway Planned: Natural Airway Pain Management: Surgeon and patient request nerve block Monitors Used: Standard Monitors
--- NOTE | 2023-10-05 09:51 | PDOC.DSDIS_ITS ---
Date of service: 10/05/23 Time of Service: 09:51 Discharge Plan Disposition Patient Disposition: Home Condition: Good Discharge Details Reason For Visit: R TKR Attending Provider: Chris Ramos Primary Care Provider: Darwin Short Home Meds and New Rx's Prescriptions: New acetaminophen 500 mg tablet 1,000 mg PO TID Qty: 90 3RF aspirin 81 mg tablet,delayed release (DR/EC) 81 mg PO BID Qty: 60 0RF celecoxib 200 mg capsule 200 mg PO BID Qty: 60 0RF pantoprazole 40 mg tablet,delayed release (DR/EC) 40 mg PO DAILY Qty: 30 0RF dexamethasone 4 mg tablet 4 mg PO DAILY Qty: 2 0RF oxycodone 5 mg tablet 5 mg PO Q4H MDD 6 tabs PRN (Reason: pain) Qty: 20 0RF gabapentin 300 mg capsule 300 mg PO QHS Qty: 14 0RF Continued lidocaine 4 % cream 1 applic topical QID PRN metronidazole [MetroCream] 0.75 % cream 1 applic topical DAILY polyethylene glycol 3350 [Miralax] 17 gram/dose powder 17 g PO DAILY PRN rosuvastatin 10 mg tablet 10 mg PO DAILY olmesartan 40 mg tablet 40 mg PO DAILY diclofenac sodium 1 % gel 2 g topical QID Qty: 100 0RF Rx Instructions: apply to affected area 4 times per day, as needed Discharge Instructions Additional Instructions: Total Knee Discharge Instructions Activity: The most important activity is to walk and to work on gentle motion (both flexion and extension). You should try to take short walks a few times a day. It is important that when resting you work on keeping the knee straight. Avoid putting a pillow behind the knee as this will encourage flexion. Work on range of motion exercises as provided by Physical Therapy. - Start outpatient physical therapy within 2 weeks. - You should wear the TRACIE hose on both legs for 2 weeks. You may remove these at night. You may also use any compression sock in place of the TRACIE hose. - Utilize [employer] to review exercises, see videos on exercises and obtain basic information pertaining to your surgery and your recovery. Dressing: Remove the Jorge wrap by 2 days after your surgery and put on the TRACIE stocking given to you from the hospital. Keep the surgical dressing (underneath the JORGE wrap) in place for at least one week. After the first week it may be removed and replaced with light gauze and tape or nothing. The wound and dressing may get wet after 3 days but avoid soaking the dressing or otherwise it will need to be changed. Many people prefer covering the dressing with cling wrap (saran wrap) to minimize it from getting soaked. If it gets wet, just pat dry. If it starts to peel off then it will need to be changed. Medications: - You should take Tylenol and anti-inflammatory Celebrex as your primary pain control medications. If the Celebrex is too expensive or not covered, please call the office for another alternative (Advil/Ibuprofen or Naproxen/Aleve) - You have been prescribed a stronger pain medication Oxycodone for breakthrough pain, take as needed as prescribed. - You have also been prescribed a stomach acid reduction agent Pantoprozole to help reduce stomach acid and reflux. - You have been prescribed Gabapentin to take at night for restlessness and nerve pain. - You will be taking Aspirin 81mg twice a day for DVT prevention unless instructed otherwise. - You have also been prescribed Decadron to take to control post-operative nausea and pain. You will start this tomorrow. - If you have constipation you should take Colace or Miralax (both [id number]). It takes most people 3-4 days to have a bowel movement. Follow-up: 2 weeks If you have any acute concerns or questions, please do not hesitate to contact the office at [phone]. You may contact Dr. Ramos with any questions after hours through the hospital at [phone] or on his cell phone at [phone]. Referrals: Chris Ramos MD [ [facility] STAFF PHYSICIAN] - Equipment/Supplies: Walker Activity:: Activity as Tolerated Shower/Bathe:: 72 hours Diet:: As Tolerated Discharge Orders Discharge Orders: Discharge Order (Routine); Ordered 10/05/23 Ordered By: Rob Erickson DS: Diagnosis Discharge Diagnosis (1) Primary osteoarthritis of right knee: Status: Acute
[2023-10-05] MEDS: ceFAZolin 2 GM/50 ML BAG IVPB (10:37)
[2023-10-05] MEDS: TRANEXAMIC ACID/SOD. CHL. 1,000 MG/100 ML BAG 600 MG IVPB (11:06)
--- NOTE | 2023-10-05 11:36 | W.ANESNERVE ---
Nerve Block Single Injection Procedure Date and Time Date Performed: 10/05/23 Procedure Start: 09:56 Location Where Procedure Performed Procedure Location: Day Surgery Unit Reason Performed: Postoperative Analgesia Requesting Provider: Chris Ramos Timeout Performed Timeout Performed: Yes Monitoring Used ECG, Blood Pressure, SpO2 and See EMR for corresponding vital signs Sterility Sterility: Hand Hygiene, Surgical Cap, Surgical Mask, Sterile Gloves and Chlorhexidine Sedation Given During Procedure Sedation Given (Indicate Dose Given): No Sedation given Patient Mental Status Patient Mental Status: Awake Nerve Block 1st Nerve Block: Laterality: Right Block Type: Adductor Canal Ultrasound Image Saved?: No Needle / Catheter Used: 100mm SonoPlex II Local Anesthetic Bolus (Indicate Dose Given): Lidocaine used for local infiltration of skin Additives (Indicate Dose Given): None Ultrasound: Sterile probe cover and gel used Nerve Stimulator: Supplement to Ultrasound use and No twitch or parasthesia noted < 0.5 mA Paresthesia: None Procedure Tolerated: Complications Encountered and Patient did not tolerate well Procedure Outcome: Unsuccessful Procedure Comment: Assist by Rosalva Valerio CRNA. Large prominent vessel in trajectory of needle path. Avoided vessel with needle advancement, but patient not tolerating procedure well and asked to stop. Dr. Ramos notified. Performed By: Teresa Bustamante
--- NOTE | 2023-10-05 12:32 | ROE_ITS ---
Date of service: 10/05/23 Time of Service: 11:00 Operative Note Operative Note DATE OF PROCEDURE: 10/05/23 PRE-OP DIAGNOSIS: Right Knee Osteoarthritis POST-OP DIAGNOSIS: same PROCEDURE: Right Total Knee Replacement SURGEON: Chris Ramos PEDIATRIC ORTHODONTIST: Swetha Erickson ANESTHESIA TYPE: General LMA/ETT Refer to Anesthesia Record ESTIMATED BLOOD LOSS: 150 PATHOLOGY: none sent TOURNIQUET TIME: 0 COMPLICATIONS: None Patient was transported to: PACU Patient's condition: stable Implants: 1. Depuy Attune Cementless Cruciate Retaining Femoral Component, Size 5 Narrow 2. Depuy Attune Cementless Fixed Bearing Tibial Component, Size 4 3. Depuy Attune 5x8 CR/FB Poly 4. Depuy Attune Patellar Component, Size 35 Indications: I have seen Abiola in clinic for symptoms of knee arthritis, confirmed with radiographic findings. She has exhausted nonoperative methods and was having significant limitations in daily function and desired better function and less pain. I discussed the technical details of a knee replacement. I explained the risks of the procedure to include, but not limited to, bleeding, infection, pain, stiffness, fracture, damage to nerves and vessels, damage to muscles and tendons, loosening, need for repeat procedure, blood clot and cardiopulmonary demise. Despite these risks, Abiola elected to proceed. Findings: There was significant signs of arthritis mostly involving the medial c ompartment. Procedure Description: Abiola was greeted in the preoperative holding area where the correct side was identified and marked. The consent was reviewed with the patient and signed. The history and physical was updated. All questions were answered. Preoperative medications were administered: Acetaminophen 1000mg, Celebrex 400mg, and Gabapentin 300mg. An adductor canal block was then administered by the anesthesia team in the DSU. Abiola was taken back to the operating room. A general anesthetic was then administered. The patient was placed into the supine position on the operating room table. A nonsterile tourniquet was placed high onto the leg but only used for cementing. Posts were placed for positioning during the procedure. All bony prominences were well padded. Prophylactic antibiotics in the form of Cefazolin were administered. 1g of Tranxemic Acid was given intravenously within 30 minutes of incision. The right leg was then prepped with Chloraprep and draped in a standard fashion with impervious stockinette. A second prep with Chloraprep was performed prior to application of Iodine impregnated skin pr otection. A timeout to confirm correct identity, side and site, procedure, allergies, anesthesia, and medical concerns was performed. With the knee in some flexion, a midline incision was made overlying the knee. Full thickness skin flaps were raised once the extensor mechanism was encountered. These were raised medially and laterally. Any bleeding was controlled with electrocautery. Once the extensor mechanism was fully exposed, a medial parapatellar arthrotomy was performed in a flexed position. All bleeding from the arthrotomy and the geniculate arteries was coagulated. A medial subperiosteal peel was performed with electrocautery to the midcoronal plane. The fat pad was removed while keeping the patellar tendon protected. The anterior distal femur synovium was removed for later visualization. The ACL and PCL were resected and the anterior horn of the lateral meniscus was transected. The knee was then flexed with the patella everted. Using a step drill, and based on preoperative templating, the femoral canal was entered. This was done with a step drill without any difficulty. The intramedullary distal femoral cut guide was inserted, set to a 5 degree valgus cut and 9mm cut thickness. The distal femoral cut guide was then held in position and pinned. With the soft tissues protected, the distal cut was performed. This was passed over a few times to ensure a planar cut. I then turned attention to the tibia. The extramedullary guide was placed onto the leg. The distal aspect was slid medial to adjust for position of center of ankle and stay in line with shaft of the tibia. Approximately 3-5 degrees of posterior slope was kept in the proximal cutting guide. The center of the guide was aligned with the PCL. The stylus was used to assess cut thickness. The medial side, most involved side, was set for a 6mm cut, which corresponded to 9 mm laterally. This was then held in position and pinned into place with 2 additional pins and a cross pin for stability. The medial and lateral collateral ligaments were protected and the cut was performed. With this completed, it was assessed and noted to be of appropriate dimensions. The guide was removed. A spacer block was inserted and the knee was brought into extension. The 7mm spacer block provided full extension, without hyperextension and with stability of both the medial and lateral collateral ligaments was assessed. The pins from the femur and the tibia were then removed. The distal femur was then sized. The anterior stylus was placed onto the lateral ridge of the anterior femur. This indicated a size 5 narrow femur. The external rotation of the guide was adjusted to 3 degrees to match the epicondylar axis, perpendicular to [place]?s line. The 4-in-1 cutting guide was the placed. The posterior medial femur cut was evaluated and appeared of good thickness. The spacer block was inserted underneath the cutting guide and stability was confirmed in 90 degrees of flexion. An hardeep wing was used to confirm appropriate position of the anterior cut to avoid notching. This cutting guide was ensured to be flush on the cut surface and then pinned into place with headed pins. While protecting the soft tissues, quad tendon, and collateral ligaments, the anterior and posterior cuts were performed with a saw. The central two pins were removed and the posterior and anterior chamfers were cut next. The notch-cutting guide was placed. This was pinned to lateralize the femoral component as much as possible while keeping it flush on the cut surface. This was then pinned into position. A reciprocating saw was used to make the notch cut. A rasp smoothed the cut surfaces. The medial and lateral menisci were removed. A trial femoral component was then inserted, impacted down to the cut surfaces, and the lug holes were drilled. A provisional trial tibial component was placed and the knee was brought through range of motion. The polyethylene was trialed until there was good flexion and extension with excellent stability to the medial and lateral collaterals. The patella was tracking without thumbs. A size 8mm polyethylene component provided the best range of motion and stability with less than 2mm gapping with medial and lateral stress and full extension without significant hyperextension. The tibial cut surface was fully exposed. The tibia was then sized as a 4. The tibia had been previously marked during trialing to correspond to the center of the tibial component to help with rotation. The trial was aligned to this swetha, approximately rotated to the medial 1/3rd of the tibial tubercle. The trial was pinned into place. The tibia was prepared with a reamer and a keel punch and lug holes. The knee was then brought into extension and the patella was measured as 25mm. Using the patellar clamp and cut guide, this was resected to a flat surface with at least 13mm of thickness remaining. The size 38 patella fit the best. This was oriented and then clamped into position. The lugs were drilled. The trial components were removed. The final components were opened on the back table. The periosteal and capsular tissues, especially posteriorly, around the knee were then systematically injected with a periarticular cocktail consisting of 246mg of Ropivacaine, 0.5mg of Epinephrine, 0.08mg of Clonidine, and 30mg of Ketorolac, diluted to 100cc. On the back table, with the implants opened, the cement was mixed. One batch of high viscosity cement was prepared with vacuum assistance. After the cement was ready a small amount was placed on the cut surface of the patella and the patellar button was clamped into position and held. While the cement was hardening, the cementless knee components were placed. Starting with the tibial component, the tibia was subluxed anteriorly and the lug holes of the component were lined up. The tibia was then impacted with an impactor and mallet until the tibial component was in contact with the tibia. The final polyethylene component was inserted. Then, the femoral component was inserted. The lug holes were aligned and the component was impacted into position. The knee was irrigated with Surgiphor Betadine solution. This was allowed to sit in the knee for 3 minutes and then it was irrigated out with saline. After the cement had finally cured, approximately 15min, the clamp was removed from the patella and the knee was taken through range of motion. The patella was tracking with a no-thumbs technique. The capsule was then reapproximated with a No. 1 Vicryl at multiple locations. The capsule was finally closed with a No. 2 Stratafix, barbed suture. The second dosing of 1g TXA was started. Deep tissues were then reapproximated with 0 Vicryl and 2-0 Vicryl. The skin was closed with a running 3-0 Monocryl in a subcuticular fashion. This was reinforced with skin glue. A Mepilex silver dressing was applied along with a [id number] JACOBO wrap. A CryoCuff was applied. Abiola was transferred to the hospital bed without difficulty an suffering no apparent complication. Abiola has a good prognosis. Physical therapy will start today and without restrictions, weight-bearing as tolerated. Aspirin 81mg BID will be used for DVT prophylaxis.
[2023-10-05] MEDS: fentaNYL 100 MCG/2 ML VIAL IVP ×4 (12:45→13:05)
[2023-10-05] MEDS: HYDROmorphone 2 MG/ML SYR IVP (13:15)
--- NOTE | 2023-10-05 14:35 | W.ANESPOSTOP ---
Postoperative Evaluation Date, Time and Location Date Performed: 10/05/23 Time Performed: 14:36 Patient Location: Day Surgery Unit Vital Signs Most Recent Imported Vital Signs: Most Recent Vital Signs Temp Pulse Resp BP Pulse Ox 36.7 C 58 L 16 176/65 H 99 10/05/23 14:19 10/05/23 14:19 10/05/23 14:19 10/05/23 14:19 10/05/23 14:19 Pain Score Most Recent Pain Score: Most Recent Pain Score Pain Level 5 10/05/23 14:19 Assessment Mental Status: Awake (Alert & Oriented to Patient Baseline) Airway and Respiratory Function: Patent airway with normal (patient baseline) respiratory exam Cardiovascular Function: Hemodynamically Stable Hydration Status: Adequately Hydrated Nausea & Vomiting: No Nausea or Vomiting Pain: Pain is tolerable per patient Peripheral Nerve Block: Patient did not receive a nerve block Postoperative Comments:: Discussed blood pressure concerns at start of case with patient and daughter. All questions answered, encouraged to reach out with questions or concerns.
--- NOTE | 2023-10-05 14:56 | IN_ITS ---
PT Notes Visit Reasons: R TKR Physical Therapy Day Surgery Initial Evaluation Date: 05/27/2023 Referring Doctor: RENO Hurt PT Orders: PT CONSULT: S/P Ortho Surgery Precautions: WBAT on the R LE with AD. Patient Profile/Admitting Diagnosis: Abiola is an 83-year-old female patient with a primary osteoarthritis of the right knee and status post right total knee arthroplasty on postoperative day 0. PMHX: All Active Problems 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 (Acute) Ulcer of left lower leg (Acute) Bursitis of right shoulder (Acute) Tubular adenoma of colon (Acute) Adenomatous colon polyp (Acute) Diverticula of colon (Acute) Chronic constipation (Acute) Pain of soft tissue of extremity (Acute) mid ant kaye of LLE Superficial thrombophlebitis of left leg (Acute) Ganglion, right wrist (Acute 01/17/17) Primary osteoarthritis of left hip (Acute 10/29/15) Primary osteoarthritis of left knee (Acute 10/29/15) Subacromial impingement of right shoulder (Acute 08/01/17) Trochanteric bursitis, left hip (Acute 10/29/15) Urinary tract infection (Acute) Primary osteoarthritis of right knee (Acute) Injection: 08/06/22; 03/29/2022; 08/14/2021; 12/01/2020;DVT (deep venous thrombosis) (Chronic) S/P right rotator cuff repair (Acute 01/31/19) Dr. Ramos Neuralgia (Chronic) R>L ear Migraine headache with aura (Chronic) Chronic daily headache (Chronic) Medical History Aortic stenosis mild-moderateCataracts, bilateral GERD (gastroesophageal reflux disease) Mild cognitive impairment Osteoarthritis Hypertension Hyperlipemia Surgical History History of colonoscopy with polypectomy (~03/06/21) S/P carpal tunnel release S/P cataract extraction Hiatal hernia H/O: hysterectomy S/P eye surgery R retina pucker Trigger Finger release Diaphragmatic Hernia Repair Cholecystectomy Social History/Home Situation: Lives with in a private home with a ramp to enter. Independent with all aspects of ADLs prior to surgery with no assistive device although has had increasing difficulty due to worsening arthritis. Daughter Consuelo you will be with patient and her for a week as she recovers at home. Equipment Owned/DME: [employer], Subjective: Zeke horse in L posterior leg with heel slides. Complained of being woozy at end of short walk, minimal vomiting x 1 but felt okay afterwards. Was able to walk from room door to bathroom to void urine. Denied headache and chest pain throughout. Mild pain in R knee that did not limit ambulation performance. Objective: General Observation: Resting on bed. JACOBO wraps to R LE. Cryocuf to R knee. Daughter Mary present in room throughout Mental Status: Alert and oriented x 4 Pain: As above ROM: Right Lower Extremity: Hip flexion WFL. Hip abduction WFL. Knee flexion 30 degrees to 90 degrees ACTIVELY while seated at edge of bed. Knee extension -30 degrees. Ankle dorsiflexion WFL. Ankle plantarflexion WFL. Left Lower Extremity: Hip flexion WFL. Hip abduction WFL. Knee flexion WFL. Ankle dorsiflexion WFL. Ankle plantarflexion WFL. Strength: Right Lower Extremity: Hip flexors 4/5. Hip abductors 4/5. Knee flexors 3-/5. Knee extensors 3-/5. Ankle dorsiflexors 5/5. Ankle plantarflexors 5/5. Left Lower Extremity:Hip flexors 5/5. Hip abductors 5/5. Knee flexors 5/5. Knee extensors 5/5. Ankle dorsiflexors 5/5. Ankle plantarflexors 5/5. Sensation: Intact as to pain and and light pressure in B LE Bed Mobility/Transfers: Minimal cueing provided for use of B hands as needed for support, movement sequence, AD management, and posture to reduce fall risk and minimize pain report Supine to sit contact guard assist with FWW Sit to stand contact guard assist with FWW Stand to sit contact guard assist with FWW Bed to chair contact guard assist with FWW Gait: Facilitated safe and correct performance of level surface ambulation covering a distance of 50 feet using front wheeled walker with step to gait pattern with report of minimal pain on the right knee. Minimal verbal cueing provided for limb advancement, posture, and AD management to minimize pain report to reduce fall risk. Complained of sudden onset wooziness that required seated rest. Reported immediately to Nurse Dionne and Nurse Dung who reassessed patient per protocol. BP at 191/79 mmHg. Patient was going to be assisted back onto chair but felt better enough to walk to the bathroom for another 15 steps. Stairs: Not needed. Patient has a ramp to enter. Balance: Static Sitting: Normal Dynamic Sitting: Normal Static Standing: Fair Dynamic Standing: Fair Special Tests: Mobility Limitations Standardized Measure [facility] AM-PAC 6 clicks Basic Mobility Inpatient Short Form: Raw Score: 18 CMS Score: 47% deficit Informed Consent/Education: Patient instructed in purpose of PT consult. Packet containing R exercise protocol has been given to patient. Education and training on initial set of exercises that can be done at home have been completed with patient. Trained patient with correct performance of exercises below to maximize motor control, joint flexibility, soft tissue extensibility of the R knee musculature: Access Code: [email or web address] URL: [email or web address] Date: 10/05/2023 Prepared by: Fannie Gil Exercises - Supine Quad Set - 1 x daily - 7 x weekly - 1 sets - 10 reps - 5 hold - Supine Heel Slide - 1 x daily - 7 x weekly - 1 sets - 10 reps - 5 hold - Supine Ankle Pumps - 1 x daily - 7 x weekly - 1 sets - 10 reps - 5 hold - Small Range Straight Leg Raise - 1 x daily - 7 x weekly - 1 sets - 10 reps - 5 hold - Seated March - 1 x daily - 7 x weekly - 1 sets - 10 reps - 5 hold ASSESSMENT: Patient requires use of front-wheeled walker for mobility ADL performance maximize independence and reduce fall risk. Complained of momentary wooziness that resolved after a few minutes and allowed her to walk to the bathroom. Daughter will be staying at patient's house for a week to help out as needed. Patient presents with clinical signs and symptoms consistent with current/admitting diagnoses that have resulted to mobility limitations, gait instability, generalized weakness, and impairment of motor control as demonstrated by the following impairment level findings: 1. Decreased strength to R knee major muscle groups 2. Impaired standing balance 3. Limitation of joint range of motion in R knee Impairments are contributing to the following functional limitations: 1. Inability to safely ambulate without assistive device 2. Increase completion time for mobility ADL performance 3. Increased fall risk Patient is assessed as a 20293 moderate complexity based on the following: History: 83-year-old female with impairment level findings, functional limitations, and past medical history as indicated above Examination: Demonstrable impairment in strength, balance, and mobility level with underlying impairments and functional limitations as documented above Presentation: Evolving Decision Makin moderate complexity Goals: N/A. PT evaluation and 1-2 treatment sessions only for functional mobility training using recommended AD and for HEP instruction. Plan of Care/Treatment Plan: N/A. PT evaluation and 1-2 treatment session only for functional mobility training using recommended AD and for HEP instruction. DISCHARGE RECOMMENDATIONS: Patient will benefit from home health PT services in order to progress mobility level using least restrictive assistive ambulatory device, assess home safety, identify additional equipment needs, and establish a functional maintenance program that will increase ability of patient to remain at home. TREATMENT CODE/TIME: 9716 2 x 20 minutes for 1 unit,-5 three 0 x 19 minutes for 1 unit (14:56-15:35). Thank you for the opportunity to participate in the care of this patient. Please sign an return this page within 30 days if you agree with the above POC. Thank you! Physician Signature Date [facility] Thank you for the opportunity to participate in the care of this patient. Fannie Gil PT, DPT, CLT [facility] [place], [place]
[2023-10-05] MEDS: Ondansetron 4 MG/2 ML VIAL IVP (15:37)
== END 2023-10-05 16:35 | disposition home or self-care (01) ==
PROVIDERS: PCP Family Medicine; Visit Provider Student in an Organized Health Care Education/Training Program
PROC: (CPT 27447; principal; 2023-10-05 09:45)
DX: M17.11 Unilateral primary osteoarthritis, right knee (principal); E78.5 Hyperlipidemia, unspecified; I10 Essential (primary) hypertension; K21.9 Gastro-esophageal reflux disease without esophagitis
CPT/HCPCS: 27447; C1776; 76942; 97162; 97530; J0665; J0690; J1100; J1170; J2371; J2401; J2405; J2704; J3010

== ENCOUNTER 2023-10-20 15:24 | Outpatient (CLI) | payer MEDICARE, SELFPAY ==
--- NOTE | 2023-10-20 12:15 | DI.RAD_ITS ---
Exam(s) XR STANDING ALIGNMENT XR KNEE RT 1V EXAM: XR STANDING ALIGNMENT CLINICAL HISTORY: F/U RIGHT TKA. TECHNIQUE: 2D digital imaging was performed. Standing AP views were performed from the pelvis throu gh the ankles. COMPARISON: CR XR HIP RT COMPLETE AP PELVIS from 10/04/2022 CR XR STANDING ALIGNMENT from 10/04/2022 CR XR KNEE RT 1V from 10/20/2023 FINDINGS: BONES: No acute fracture is present. No bony destructive lesion is seen. Leg length discrepancy: No significant overall leg length discrepancy. JOINTS: Knees: The right total knee prosthesis shows normal alignment. Mild joint space narrowi ng and end spurring noted at the medial femoral tibial joint space of the left knee. The ankle joints are unremarkable. Hips: Moderate left hip joint space narrowing and periarticular spurring. Mild right hip joint space and periarticular spurring. SOFT TISSUE: Normal. IMPRESSION: Degenerative changes in the left knee and both hips, left greater than right. Satisfactory appearan ce of right knee prosthesis. No significant leg length discrepancy. DATA REPOSITORY: RADIATION DOSE DELIVERED:
== END 2023-10-20 15:25 | disposition home or self-care (01) ==
LOC: DIORS 15:24
PROVIDERS: PCP Family Medicine; Visit Provider Student in an Organized Health Care Education/Training Program
DX: Z96.651 Presence of right artificial knee joint (principal); Z47.1 Aftercare following joint replacement surgery
CPT/HCPCS: 73560; 77073

== ENCOUNTER → 2023-11-17 13:50 | Outpatient (BNVA) | payer MEDICARE, SELFPAY | PROVIDERS: PCP Family Medicine; Referring Provider Family Medicine; Visit Provider Student in an Organized Health Care Education/Training Program | DX: Z47.1 Aftercare following joint replacement surgery (principal); Z96.651 Presence of right artificial knee joint ==

== ENCOUNTER → 2023-12-26 13:37 | Outpatient (BNVA) | payer MEDICARE, SELFPAY | PROVIDERS: PCP Family Medicine; Referring Provider Family Medicine; Visit Provider Student in an Organized Health Care Education/Training Program | DX: Z47.1 Aftercare following joint replacement surgery (principal); Z96.651 Presence of right artificial knee joint ==

== ENCOUNTER 2024-01-11 08:19 | Emergency (ER) | payer MEDICARE, SELFPAY ==
[2024-01-11] VITALS (14 sets, daily range): BP systolic 127–238; BP diastolic 51–89; PULSE 54–64; RESP 10–22; TEMP 36.5; O2SAT 99
--- NOTE | 2024-01-11 08:15 | RT.EKG_ITS ---
APPROVED REPORT Exam: Resting ECG Reason for Exam: dizzy Patient Location: E HR:56 bpm ECG Measurements Heart Rate 56 AXIS RI 153 P 41 QRSd 103 QRS 29 QT 435 T 65 QTc 419 Conclusion Sinus bradycardia...rate< 60 Probable left ventricular hypertrophy...(RaVL+SV3)xQRSd >300 sinus tabitha, normal axis, normal interals
--- NOTE | 2024-01-11 08:29 | ED.GENADUL_ITS ---
<Statement entered by Aryan Gonzáles DO - 01/11/24 23:41> I did not see or manage this patient. I was attached to the chart secondary to system error. Discharge Plan Disposition Patient Disposition: Home Condition: Stable Discharge Details Clinical Impression: Epistaxis Primary Care Provider: Darwin Short ED Provider: Aryan Montague Home Meds and New Rx's Prescriptions: Continued polyethylene glycol 3350 [Miralax] 17 gram/dose powder 17 g PO DAILY PRN rosuvastatin 10 mg tablet 10 mg PO DAILY olmesartan 40 mg tablet 40 mg PO DAILY diclofenac sodium 1 % gel 2 g topical QID Qty: 100 0RF Rx Instructions: apply to affected area 4 times per day, as needed acetaminophen 500 mg tablet 1,000 mg PO TID Qty: 90 3RF Discharge Instructions Instructions: Nosebleeds ED Additional Instructions: You were seen in the emergency department for your nosebleed for 30 minutes that resolved with direct pressure, you were stable throughout your ED visit today endorsing some dizziness, your hemoglobin is normal indicating not a significant bleed, the CT was negative for any acute abnormality of the brain or sinuses, your cardiac workup is negative. Please use a simple nasal moisturizing mist spray with saline and do not try to physically disturbed the nose for the next 24 to 48 hours with any picking or other trauma that would cause bleeding. Please return for any uncontrolled nosebleeding, any signs of blood loss like dizziness, chest pain, shortness of breath or any other emergent concern. Referrals: Darwin Short MD [Primary Care Provider] - Discharge Data Discharge Date/Time-TO BE ENTERED AT DEPARTURE: 01/11/24 12:44 HPI General Date/Time Provider Initiated Documentation: 01/11/24 08:21 . HPI Narrative: 83 year-old female presents to ED today by EMS with a chief complaint of nosebleed- one yesterday and one today, today's lasting about 30 minutes with spontaneous resolution. Quality described as nosebleed, no radiation to nasal trauma, URI symptoms, endorses dizziness, denies chest pain, shortness of breath, endorses dizziness and nausea. Severity is described as unable to quantify, not painful. Palliating factors include direct pressure with resolution. Provoking factors include nothing specific. Events leading up to the incident/Associated Symptoms: Patient denies recently turning on her heat or other environmental dehumidifying agent in the home. Patient not anticoagulated. Related Data Home Medications ?Medication ?Instructions ?Recorded ?Confirmed polyethylene glycol 3350 17 17 g PO DAILY PRN 12/15/21 12/26/23 gram/dose oral powder (Miralax) olmesartan 40 mg tablet 40 mg PO DAILY 02/10/23 12/26/23 rosuvastatin 10 mg tablet 10 mg PO DAILY 02/10/23 12/26/23 diclofenac sodium 1 % topical gel 2 g topical QID #100 grams 02/23/23 12/26/23 acetaminophen 500 mg tablet 1,000 mg (2 x 500 mg) PO TID #90 10/05/23 12/26/23 tabs Previous Rx's ?Medication ?Instructions ?Recorded diclofenac sodium 1 % topical gel 2 g topical QID #100 grams 02/23/23 acetaminophen 500 mg tablet 1,000 mg (2 x 500 mg) PO TID #90 10/05/23 tabs Allergies Allergy/AdvReac Type Severity Reaction Status Date / Time Sulfa (Sulfonamide Allergy Severe Anaphylaxsi Unverified 01/11/24 08:27 Antibiotics) s metoprolol Allergy Unknown UNKNOWN Unverified 01/11/24 08:27 aspirin AdvReac Unknown UNKNOWN Unverified 01/11/24 08:27 ibuprofen AdvReac Unknown UNKNOWN Unverified 01/11/24 08:27 General Stated Complaint: Dizzy/Sync SHYANNE: 3 Review of Systems All systems reviewed & are unremarkable except as noted in HPI and below Exam Narrative Exam Narrative: GENERAL APPEARANCE: Well-nourished, non-toxic, awake and alert, atraumatic, no acute distress. SKIN: Warm, pink, dry, intact, without rashes/lesions/ulcerations. HEAD: Normocephalic, atraumatic, normal hair distribution for gender/age. EYES: Normal conjunctiva, no exudates on lids/lashes. ENT: Nares patent, no circumoral cyanosis, no facial swelling, dried blood at nares, no postnasal drip of blood, no nasal tenderness NECK: Supple, trachea midline, painless cervical ROM. LUNGS/CHEST: Lungs CTA bilaterally- no rhonchi/rales/wheezes diffusely, non- labored respirations, normal A/P diameter, symmetrical expansion, no chest wall deformity HEART (CV/PV): Regular rate and rhythm without murmur, no peripheral edema, no JVD. ABDOMEN: Soft, non-distended, no guarding, no tenderness. MSK: Normal ROM, no swelling/deformity to bilateral UEs or LEs, moving all ex tremities without weakness, no cyanosis, spine midline without tenderness, normal curvature. NEURO: Mental Status AAOx4 - alert to person, place, time, events No facial droop, no forehead involvement. Motor: No focal weakness - strength 5/5 in bilateral UEs and LEs, proximal and distal, symmetric. Sensory: sensation intact to light touch globally. Gait normal: patient ambulated without ataxia in ED room. PSYCH: euthymic, cooperative, pleasant, appropriate speech Course Vital Signs Vital signs: Vital Signs Temperature 36.5 C 01/11/24 08:21 Pulse 54 L 01/11/24 08:21 Respiratory Rate 12 01/11/24 08:21 Blood Pressure 238/59 H 01/11/24 08:21 Pulse Oximetry 99 01/11/24 08:21 Temperature 36.5 C 01/11/24 08:21 Temperature Source Skin 01/11/24 08:21 Pulse 54 L 01/11/24 08:21 Respiratory Rate 12 01/11/24 08:21 Blood Pressure 238/59 H 01/11/24 08:21 Blood Pressure Position Sitting 01/11/24 08:21 Pulse Oximetry 99 01/11/24 08:21 Oxygen Delivery Method Room Air 01/11/24 08:21 Oxygen Flow Rate 0 01/11/24 08:21 Pain Level 5 01/11/24 08:21 Medical Decision Making This dictation utilizes [id number] dictation software and may contain unedited grammatical errors. 83 year-old female presents to ED today by EMS with a chief complaint of nosebleed- one yesterday and one today, today's lasting about 30 minutes with spontaneous resolution. Quality described as nosebleed, no radiation to nasal trauma, URI symptoms, endorses dizziness, denies chest pain, shortness of breath, endorses dizziness and nausea. Severity is described as unable to quantify, not painful. Palliating factors include direct pressure with resolution. Provoking factors include nothing specific. Events leading up to the incident/Associated Symptoms: Patient denies recently turning on her heat or other environmental dehumidifying agent in the home. Patient not anticoagulated. Patients' medical history: Aortic stenosis, GERD, mild cognitive impairment, hypertension, hyperlipidemia, recent aortic valve replacement, history of superficial thrombophlebitis and DVT. Family and social history: Lives at home with . Pertinent exam findings / vital signs include significant hypertension on arrival, dried blood at the nares, no active bleeding in posterior oropharynx, neuro intact, benign abdomen, regular rate and rhythm. Differential / pathologies of concern include epistaxis, brain or sinus mass, hypertensive emergency, ACS. Diagnostic studies of: -CBC, PT/INR/PTT, lactate, CMP, UA, serial troponins, EKG, CT head with and without contrast. -CBC shows no leukocytosis, no anemia -PT/INR within normal limits -CMP shows baseline elevated creatinine otherwise benign -Serial troponins negative -EKG without STEMI -Lactate within normal limits -UTI shows 20-50 WBCs with patient is elderly and asymptomatic will await culture -CT Head without any acute abnormality Interventions of: -500mL fluid bolus. ED Course/Assessment/Plan: 83-year-old female presents by ambulance for 30-minute nosebleed of heavy bleeding in nature that had resolved spontaneously prior to arrival with direct pressure applied, she is endorsing dizziness and nausea likely from postnasal drip of blood, there is no sign of hemorrhage or significant blood loss, she was observed for significant length of time and underwent a cardiac workup for dizziness which was negative, CT head showed no acute abnormality to suspect any brain or sinus mass eroding other structures or bleeding. Counseled the patient on direct pressure for nosebleeds, saline nasal mist, strict return criteria for further bleeding, worsening dizziness, chest pain, intractable nausea or vomiti ng. Findings not consistent with brain or sinus mass, active bleeding, ACS, coagulopathy, sepsis. Disposition of Epistaxis. Patient verbalized understanding of the plan and return to ED criteria and engaged in shared decision making. Medical Records Medical records reviewed: Yes I reviewed the patient's medical records. Imaging Data Radiologic Study: Attestation: I personally reviewed and interpreted this imaging study as follows: Imaging: CT Scan Radiologist's impression: EXAM: CT HEAD WO/W CLINICAL HISTORY: dizziness, HTNsive emergency, nose bleeds, constitutional symptoms. TECHNIQUE: Imaging Protocol: Axial computed tomography images with coronal and sagittal reformatted images were created and reviewed. CONTRAST MATERIAL: Intravenous: Omnipaque 350 Contrast volume:100 ml COMPARISON: CT CT HEAD CERVICAL SPINE WO from 03/04/2022 FINDINGS: Ventricles and Extra axial spaces: Normal in size and morphology for the patient's age. Hemorrhage: None. Cerebral parenchyma: Minimal white matter changes of small vessel disease. Enhancement: No suspicious enhancement. [id number]-ta-[id number] vasculature appears normal. Venous sinuses are patent. Midline shift: None. 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 Calvarium: Normal. Visualized Paranasal sinuses/Mastoids: Clear. No abnormalities identified within the nasal cavity. No evidence of mass or polyps. There is kris bullosa of both middle turbinates. IMPRESSION: No acute intracranial abnormality. No abnormality identified in the sinuses or nasal cavity. Lab Data Lab results reviewed: Yes I reviewed the patient's lab results. Labs: 01/11/24 09:00 Urine - Reflex from Ua Urine Culture - Pending Laboratory Tests Range/Units 01/11/24 01/11/24 01/11/24 08:35 09:00 11:53 WBC (4.4-10.8) 10^3/uL 5.80 RBC (3.93-5.22) 10^6/uL 4.03 Hgb (11.2-15.7) g/dL 11.9 Hct (36.0-46.0) % 38.1 MCV (80-95) fL 95 MCH (27.0-33.0) pg 29.5 MCHC (32.0-36.0) % 31.2 L RDW (11.7-14.6) % 13.7 Plt Count (130-400) 10^3/uL 196 MPV (8.0-11.0) fL 10.2 Immature Gran % % 0.3 Neutrophils % % 56.4 Lymphocytes % % 32.1 Monocytes % % 9.1 Eosinophils % % 1.4 Basophils % % 0.7 Nucleated RBC % (0.0-0.3) % 0.0 Absolute Neutrophils (1.2-6.7) 10^3/uL 3.27 Absolute Lymphocytes (1.2-3.4) 10^3/uL 1.86 Absolute Monocytes (0.1-0.8) 10^3/uL 0.53 Absolute Eosinophils (0.0-0.7) 10^3/uL 0.08 Absolute Basophils (0.0-0.2) 10^3/uL 0.04 PT Cancelled 10.3 INR Cancelled 1.0 APTT Cancelled 27.1 VBG Lactate (0.6-1.4) mmol/L 0.9 Sodium Cancelled 144 Potassium Cancelled 3.9 Chloride Cancelled 107 Carbon Dioxide Cancelled 27.7 Anion Gap Cancelled 9.3 BUN Cancelled 21 H Creatinine Cancelled 1.2 H Est GFR (CKD-EPI 2020) Cancelled 45.48 Glucose Cancelled 98 Calcium Cancelled 9.6 Total Bilirubin Cancelled 0.38 AST Cancelled 18 ALT Cancelled 21 Alkaline Phosphatase Cancelled 94 Troponin I Cancelled < 50 < 50 Total Protein Cancelled 7.3 Albumin Cancelled 3.6 Urine Color (Yellow) Yellow Urine Clarity (Clear) Sl Cloudy Urine pH (5-8) 7.0 Ur Specific [place] (1.005-1.025) 1.020 Urine Protein (Neg-Trace) mg/dL Negative Urine Ketones (Negative) mg/dL Negative Urine Blood (Negative) Negative Urine Nitrite (Negative) Negative Urine Bilirubin (Negative) Negative Urine Urobilinogen (Up to 0.2) mg/dL 1.0 H Ur Leukocyte Esterase (Negative) Moderate H Urine RBC (0-2) HPF 3-5 H Urine WBC (0-5) HPF 20-50 H Ur Epithelial Cells (Negative) HPF Few Urine Crystals (Negative) HPF Negative Urine Bacteria (Negative) HPF Few Urine Mucus (Negative) Negative Ur Culture Indicated? Yes Urine Glucose (Negative) mg/dL Negative Quality:SDOH Health Related Social Needs: No Data to Display PFSH All Active Problems (Updated 01/11/24 @ 12:24 by RENO Harris) Epistaxis (Acute) History of total right knee replacement (Acute 10/05/23) 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 (Acute) Ulcer of left lower leg (Acute) Bursitis of right shoulder (Acute) Tubular adenoma of colon (Acute) Adenomatous colon polyp (Acute) Diverticula of colon (Acute) Chronic constipation (Acute) Pain of soft tissue of extremity (Acute) mid ant kaye of LLE Superficial thrombophlebitis of left leg (Acute) Ganglion, right wrist (Acute 01/17/17) Primary osteoarthritis of left hip (Acute 10/29/15) Primary osteoarthritis of left knee (Acute 10/29/15) Subacromial impingement of right shoulder (Acute 08/01/17) Trochanteric bursitis, left hip (Acute 10/29/15) Urinary tract infection (Acute) Primary osteoarthritis of right knee (Acute) Injection: 08/06/22; 03/29/2022; 08/14/2021; 12/01/2020; DVT (deep venous thrombosis) (Chronic) S/P right rotator cuff repair (Acute 01/31/19) Dr. Ramos Neuralgia (Chronic) R>L ear Migraine headache with aura (Chronic) Chronic daily headache (Chronic) Medical History Aortic stenosis mild-moderate Cataracts, bilateral GERD (gastroesophageal reflux disease) Mild cognitive impairment Osteoarthritis Hypertension Hyperlipemia Surgical History 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 History of colonoscopy with polypectomy (~03/06/21) S/P carpal tunnel release S/P cataract extraction Hiatal hernia H/O: hysterectomy S/P eye surgery R retina pucker Trigger Finger release Diaphragmatic Hernia Repair Cholecystectomy Family History Father Heart disease Hypertension Mother Diabetes Heart disease Hypertension Social History Smoking/Tobacco Use Status: Former Tobacco Use Quit Date: 05/23/89 Smoking risk assessment performed?: Yes Alcohol Intake: never Details: DOES NOT DRINK Drug use: Never Substance use type: does not use Household members: spouse Housing: house 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
--- NOTE | 2024-01-11 08:30 | DI.CT_ITS ---
Exam(s) CT HEAD WO/W EXAM: CT HEAD WO/W CLINICAL HISTORY: dizziness, HTNsive emergency, nose bleeds, constitutional symptoms. TECHNIQUE: Imaging Protocol: Axial computed tomography images with coronal and sagittal reformatted images were created and reviewed. CONTRAST MATERIAL: Intravenous: Omnipaque 350 Contrast volume:100 ml COMPARISON: CT CT HEAD CERVICAL SPINE WO from 03/04/2022 FINDINGS: Ventricles and Extra axial spaces: Normal in size and morphology for the patient's age. Hemorrhage: None. Cerebral parenchyma: Minimal white matter changes of small vessel disease. Enhancement: No suspicious enhancement. Drjouw-tx-Flcxgk vasculature appears normal. Venous sinuses are patent. Midline shift: None. 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 Calvarium: Normal. Visualized Paranasal sinuses/Mastoids: Clear. No abnormalities identified within the nasal cavity. No evidence of mass or polyps. There is kris bullosa of both middle turbinates. IMPRESSION: No acute intracranial abnormality. No abnormality identified in the sinuses or nasal cavity. RADIATION DOSE DELIVERED: Total DLP DATA REPOSITORY: All CT scans at this facility are submitted to the National Radiology Data Registry (NRDR) Dose Index Registry (DIR) with the [employer] (A[employer]). RADIATION OPTIMIZATION: All CT scans at this facility use at least one of these dose optimization te chniques: automated exposure control; mA and/or kV adjustment per patient size (includes targeted exa ms where dose is matched to clinical indication); or iterative reconstruction.
[2024-01-11 08:41] LABS: Lactate 0.9 mmol/L (0.6-1.4)
[2024-01-11 08:42] LABS: Abs Immature Grans 0.02 10^3/uL (0.0-0.06); Absolute Basophil Count 0.04 10^3/uL (0.0-0.2); Absolute Eosinophil Count 0.08 10^3/uL (0.0-0.7); Absolute Lymphocyte Count 1.86 10^3/uL (1.2-3.4); Absolute Monocyte Count 0.53 10^3/uL (0.1-0.8); Absolute Neutrophil Count 3.27 10^3/uL (1.2-6.7); Basophils % 0.7 %; Eosinophils % 1.4 %; HCT 38.1 % (36.0-46.0); HGB 11.9 g/dL (11.2-15.7); Immature Grans % 0.3 %; Lymphocytes % 32.1 %; MCH 29.5 pg (27.0-33.0); MCHC 31.2 % (32.0-36.0); MCV 95 fL (80-95); MPV 10.2 fL (8.0-11.0); Monocytes % 9.1 %; Neutrophils % 56.4 %; Platelet Count 196 10^3/uL (130-400); RBC 4.03 10^6/uL (3.93-5.22); RDW 13.7 % (11.7-14.6); RDW-SD 47.8 fL
[2024-01-11 09:19] LABS: PTT Activated 27.1 sec (23.6-32.8); Prothrombin Time 10.3 sec (9.1-11.1)
[2024-01-11 09:36] LABS: ALT 21 U/L (14-59); AST 18 U/L (15-37); Albumin 3.6 g/dL (3.4-5.0); Alkaline Phosphatase 94 U/L (46-116); Anion Gap 9.3 mmol/L (3-11); BUN 21 mg/dL (7-18); Bilirubin, Total 0.38 mg/dL (0.2-1.0); CO2 27.7 mmol/L (21.0-32.0); CREATININE 1.2 mg/dL (0.55-1.02); Calcium 9.6 mg/dL (8.5-10.1); Chloride 107 mmol/L (98-107); Estimated GFR 45.48 (mL/min/1.73m2); Glucose 98 mg/dL (74-106); Potassium 3.9 mmol/L (3.5-5.1); Sodium 144 mmol/L (136-145); Total Protein 7.3 g/dL (6.4-8.2); Troponin I < 50 ng/L (< or =60)
[2024-01-11 09:45] LABS: Bilirubin Negative (Negative); Blood Negative (Negative); Clarity Sl Cloudy (Clear); Glucose Negative (Negative); Ketones Negative (Negative); Leukocyte Esterase Moderate (Negative); Nitrite Negative (Negative)
[2024-01-11 09:56] LABS: WBC 20-50 HPF (0-5)
[2024-01-11 09:57] LABS: Bacteria Few HPF (Negative); C & S Indicated? Yes; Crystals Negative HPF (Negative); Epithelial Cells Few HPF (Negative); Mucus Negative (Negative)
[2024-01-11] MEDS: Normal Saline 1,000 ML 150 ML IV (10:06)
[2024-01-11] MEDS: Normal Saline - Diluent 50 ML VIAL IJ (10:18)
[2024-01-11] MEDS: Omnipaque 350 MG/ML 100 ML BTL IJ (10:19)
[2024-01-11] MEDS: Acetaminophen 325 MG TAB 650 MG PO (11:06)
[2024-01-11 12:18] LABS: Troponin I < 50 ng/L (< or =60)
== END 2024-01-11 12:44 | disposition home or self-care (01) ==
PROVIDERS: Emergency Provider Physician Assistant; PCP Family Medicine
DX: R04.0 Epistaxis (principal); R42 Dizziness and giddiness
CPT/HCPCS: 36415; 80053; 93005; 96360; 96361; 99285; 70470; 81003; 81015; 83605; 84484; 85025; 85610; 85730; 87086; 93010; 99283; J3490

== ENCOUNTER 2024-05-21 21:52 | Outpatient (REF) | payer MEDICARE, SELFPAY ==
[2024-05-21 22:21] LABS: Anion Gap 11.6 mmol/L (3-11); BUN 22 mg/dL (7-18); CO2 27.4 mmol/L (21.0-32.0); CREATININE 1.5 mg/dL (0.55-1.02); Calcium 9.6 mg/dL (8.5-10.1); Chloride 105 mmol/L (98-107); Estimated GFR 34.58 (mL/min/1.73m2); Glucose 110 mg/dL (74-106); Potassium 4.1 mmol/L (3.5-5.1); Sodium 144 mmol/L (136-145)
== END 2024-05-21 21:53 | disposition home or self-care (01) ==
LOC: NCHCN 21:52
PROVIDERS: PCP Family Medicine; Visit Provider Family Medicine
DX: I10 Essential (primary) hypertension (principal)
CPT/HCPCS: 80048

== ENCOUNTER 2024-09-22 11:44 | Emergency (ER) | payer MEDICARE, SELFPAY ==
[2024-09-22 12:16] VITALS: BP 111/74; PULSE 78; RESP 26; TEMP 36.4; O2SAT 94
--- NOTE | 2024-09-22 12:30 | DI.RAD_ITS ---
Exam(s) XR CHEST 2V PA LATERAL EXAM: XR CHEST 2V PA LATERAL CLINICAL HISTORY: Cough TECHNIQUE: 2D digital imaging was performed. Two views. COMPARISON: CT CT CHEST W from 03/04/2022 FINDINGS: HEART: Normal size. Aorta: Not dilated. Mildly tortuous. Calcification. TAVR. PULMONARY VASCULATURE: Normal. MEDIASTINUM: Unremarkable. LUNGS: Mild fibrotic changes, otherwise clear. PLEURAL SPACE: No pleural effusion or pneumothorax. BONE:Unremarkable for age. SOFT TISSUES: Unremarkable. IMPRESSION: No acute abnormality. DATA REPOSITORY: RADIATION DOSE DELIVERED:
--- NOTE | 2024-09-22 12:30 | DI.RAD_ITS ---
Exam(s) XR KNEE RT 3V AP,LAT,HARDIK EXAM: XR KNEE RT 3V AP,LAT,HARDIK CLINICAL HISTORY: Injury, pain. TECHNIQUE: 2D digital imaging was performed. Three views. COMPARISON: CR XR KNEE RT 1V from 10/20/2023 FINDINGS: BONES: No acute fracture is present. No bony destructive lesion is seen. JOINTS: The knee prosthesis is normally aligned. No joint effusion is seen. SOFT TISSUE: Normal. IMPRESSION: Stable appearance of knee prosthesis. No acute abnormality. DATA REPOSITORY: RADIATION DOSE DELIVERED:
--- NOTE | 2024-09-22 13:57 | DI.VRAD_ITS ---
PROCEDURE INFORMATION: Exam: XR Chest Exam date and time: 09/22/2024 1:04 PM Age: 84 years old Clinical indication: Cough TECHNIQUE: Imaging protocol: Radiologic exam of the chest. Views: 2 views. COMPARISON: CT CHEST W 03/04/2022 8:09 PM FINDINGS: Lungs: No focal consolidation. Pleural spaces: Biapical pleural thickening. Heart/Mediastinum: Unremarkable. No cardiomegaly. Vasculature: Stent proximal aorta. Bones/joints: Unremarkable. IMPRESSION: No acute findings. Dictated and Authenticated by: Ute Recinos MD. Orderin Brent Gann MD
--- NOTE | 2024-09-22 14:08 | ED.GENADUL_ITS ---
Discharge Plan Disposition Patient Disposition: Home Condition: Stable Discharge Details Clinical Impression: COVID-19, Contusion of knee, right Primary Care Provider: Darwin Short ED Provider: Sanjuanita Kennedy Home Meds and New Rx's Prescriptions: New albuterol sulfate 90 mcg/actuation HFA aerosol inhaler 2 puff IH QID PRN (Reason: shortness of breath or wheezing) Qty: 8 0RF Rx Instructions: Take 1 to 2 puffs every 4-6 hours as needed for shortness of breath, cough or wheezing No Action rosuvastatin 10 mg tablet 10 mg PO DAILY olmesartan 40 mg tablet 40 mg PO DAILY acetaminophen 500 mg tablet 1,000 mg PO TID Qty: 90 3RF Discharge Instructions Instructions: Minor Contusion ED, COVID-19 ED Additional Instructions: You have tested positive for COVID-19. No evidence for pneumonia on the chest x-ray. A prescription was sent to the pharmacy on file for you. Please take this as directed. Continue to quarantine and wear mask around family for the next 5 to 10 days. Inhaler was sent to the pharmacy on file you may use 1 to 2 puffs every 4-6 hours as needed for wheezing or shortness of breath. Knee x-ray within normal limits. I do suspect that you bruised your knee. Wear the splint as discussed rest ice compression elevation. Please take Tylenol or Ibuprofen with food every 4-6 hours as needed for pain and swelling. Follow up with primary care provider in 3-5 days. Return to ED sooner if any worsening shortness of breath, O2 sat 90% or less, productive cough or concerns. Referrals: Darwin Short MD [Primary Care Provider] - 1 week HPI General Mode of arrival: wheelchair . Date/Time Provider Initiated Documentation: 09/22/24 12:44 . Limitations to Documentation: no limitations . Information obtained by: patient, family, RN notes reviewed and old records reviewed . HPI Narrative: 54-year-old female presents with chief complaint of cough and shortness of breath over the last week. Also reports fever. What brought her into the emergency department if she had accidentally had her right knee closed in a car door. She does have a history of a knee replacement to that same knee. No obvious deformity, small questionable superficial abrasion noted to her anterior knee. She has full range of motion. Lungs are clear to auscultation bilaterally. She is speaking in full sentences ANO x 4. She does have a past medical history of osteoarthritis hypertension hyperlipidemia and GERD and aortic stenosis. Related Data Home Medications ?Medication ?Instructions ?Recorded ?Confirmed olmesartan 40 mg tablet 40 mg PO DAILY 02/10/23 09/22/24 rosuvastatin 10 mg tablet 10 mg PO DAILY 02/10/23 09/22/24 acetaminophen 500 mg tablet 1,000 mg (2 x 500 mg) PO TID #90 10/05/23 09/22/24 tabs albuterol sulfate 90 mcg/actuation 2 puff inhalation QID PRN 09/22/24 aerosol inhaler shortness of breath or wheezing #8 grams Previous Rx's ?Medication ?Instructions ?Recorded acetaminophen 500 mg tablet 1,000 mg (2 x 500 mg) PO TID #90 10/05/23 tabs albuterol sulfate 90 mcg/actuation 2 puff inhalation QID PRN 09/22/24 aerosol inhaler shortness of breath or wheezing #8 grams Allergies Allergy/AdvReac Type Severity Reaction Status Date / Time Sulfa (Sulfonamide Allergy Severe Anaphylaxsi Unverified 09/22/24 12:45 Antibiotics) s metoprolol Allergy Unknown UNKNOWN Unverified 09/22/24 12:45 aspirin AdvReac Unknown UNKNOWN Unverified 09/22/24 12:45 ibuprofen AdvReac Unknown UNKNOWN Unverified 09/22/24 12:45 General Stated Complaint: Orthopedic SHYANNE: 3 Review of Systems ENT Ears, Nose, Mouth, and Throat: Reports sore throat Cardiovascular Cardiovascular: Reports dyspnea Respiratory Respiratory: Reports chest congestion, Reports cough and Reports dyspnea Musculoskeletal Musculoskeletal: Reports as per HPI and Reports arthralgias Exam Narrative Exam Narrative: Constitutional: Alert and oriented x3. Appears stated age. Normal body habitus. Head: Normocephalic, no trauma. Eyes: Pupils PERRL, Red reflex noted, EOM's intact. Eyelids symmetrical without lesions, discharge, or swelling. ENT: Bilateral TM's WNL, External ear normal to inspection, no mastoid TTP, swelling, or erythema, Nasal turbinates WNL, no nasal discharge. Normal dentition, Posterior pharynx WNL, no exudate. Chest: RRR, Normal S1, S2, distal pulses intact. Resp: Lungs clear to auscultation bilaterally, no wheezes, rales, or rhonchi. Abdomen: Soft, non-distended, Normoactive bowel sounds all 4 quads. Musculoskeletal: Unable to assess gait, complaining of lateral and anterior right knee tenderness with palpation, small superficial abrasion noted, no obvious deformity distal CMS intact. Moves all 4 extremities without difficulty. Skin: No suspicious rashes or lesions. Capillary refill less than 2 sec. Neurologic: Cranial nerves II-XII intact. Alert and oriented x 3. Motor: No deficits noted. Sensory: Intact bilaterally all 4 extremities. Hematologic/Lymphatic: No ecchymosis, no lymphadenopathy. Course Vital Signs Vital signs: Vital Signs Temperature 36.4 C 09/22/24 12:16 Pulse 78 09/22/24 12:16 Respiratory Rate 26 H 09/22/24 12:16 Blood Pressure 111/74 09/22/24 12:16 Pulse Oximetry 94 09/22/24 12:16 Temperature 36.4 C 09/22/24 12:16 Temperature Source Oral 09/22/24 12:16 Pulse 78 09/22/24 12:16 Respiratory Rate 26 H 09/22/24 12:16 Blood Pressure 111/74 09/22/24 12:16 Blood Pressure Position Sitting 09/22/24 12:16 Pulse Oximetry 94 09/22/24 12:16 Oxygen Delivery Method Room Air 09/22/24 12:16 Oxygen Flow Rate 0 09/22/24 12:16 Medical Decision Making COVID-positive. Chest x-ray within normal limits, knee x-ray shows no acute bony abnormality. Informed of COVID-positive status. Initially ordered molnupiravir which pharmacy does not have a stock of. However they do have Paxlovid. Prescription changed to Paxlovid. Discussed quarantine with patient and family who verbalized understanding. Given strict return instructions and follow-up care. This text was generated using [employer] dictation system, please disregard any oddities of phrase or misspellings. Imaging Data Radiologic Study: Imaging: X-Ray Radiologist's impression: Clinical indication: Cough TECHNIQUE: Imaging protocol: Radiologic exam of the chest. Views: 2 views. COMPARISON: CT CHEST W 03/04/2022 8:09 PM FINDINGS: Lungs: No focal consolidation. Pleural spaces: Biapical pleural thickening. Heart/Mediastinum: Unremarkable. No cardiomegaly. Vasculature: Stent proximal aorta. Bones/joints: Unremarkable. IMPRESSION: No acute findings. Thank you for allowing us to participate in the care of your patient. Dictated and Authenticated by: Ute Recinos MD Quality:SDOH Health Related Social Needs: No Data to Display PFSH All Active Problems (Updated 09/22/24 @ 14:15 by Sanjuanita Kennedy NP) Contusion of knee, right (Acute) COVID-19 (Acute) History of total right knee replacement (Acute 10/05/23) 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 (Acute) Ulcer of left lower leg (Acute) Bursitis of right shoulder (Acute) Tubular adenoma of colon (Acute) Adenomatous colon polyp (Acute) Diverticula of colon (Acute) Chronic constipation (Acute) Pain of soft tissue of extremity (Acute) mid ant kaye of LLE Superficial thrombophlebitis of left leg (Acute) Ganglion, right wrist (Acute 01/17/17) Primary osteoarthritis of left hip (Acute 10/29/15) Primary osteoarthritis of left knee (Acute 10/29/15) Subacromial impingement of right shoulder (Acute 08/01/17) Trochanteric bursitis, left hip (Acute 10/29/15) Urinary tract infection (Acute) Primary osteoarthritis of right knee (Acute) Injection: 08/06/22; 03/29/2022; 08/14/2021; 12/01/2020; DVT (deep venous thrombosis) (Chronic) S/P right rotator cuff repair (Acute 01/31/19) Dr. Ramos Neuralgia (Chronic) R>L ear Migraine headache with aura (Chronic) Chronic daily headache (Chronic) Medical History Aortic stenosis mild-moderate Cataracts, bilateral GERD (gastroesophageal reflux disease) Mild cognitive impairment Osteoarthritis Hypertension Hyperlipemia Surgical History 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 History of colonoscopy with polypectomy (~03/06/21) S/P carpal tunnel release S/P cataract extraction Hiatal hernia H/O: hysterectomy S/P eye surgery R retina pucker Trigger Finger release Diaphragmatic Hernia Repair Cholecystectomy Family History Father Heart disease Hypertension Mother Diabetes Heart disease Hypertension Social History Smoking/Tobacco Use Status: Former Tobacco Use Quit Date: 05/23/89 Smoking risk assessment performed?: Yes Alcohol Intake: never Details: DOES NOT DRINK Drug use: Never Substance use type: does not use Household members: spouse Housing: house current occupation: [employer] Current gender identity: female What is your relationship status?: Panel score (0-1 are the most socially isolated patients): 1 Seatbelt use: always Do you feel safe at home: Yes Do you feel safe in your relationship?: Yes
--- NOTE | 2024-09-22 14:16 | DI.VRAD_ITS ---
PROCEDURE INFORMATION: Exam: XR Right Knee Exam date and time: 09/22/2024 1:07 PM Age: 84 years old Clinical indication: Other: Right knee pain TECHNIQUE: Imaging protocol: Radiologic exam of the right knee. Views: 3 views. COMPARISON: CR XR KNEE RT 1V 10/20/2023 1:32 PM FINDINGS: Bones/joints: Total knee prosthesis. No acute fracture evidence of hardware malfunction. Soft tissues: Normal. IMPRESSION: No acute findings. Dictated and Authenticated by: Ute Recinos MD. Orderin Brent Gann MD
[2024-09-22 14:34] VITALS: BP 124/68; PULSE 71; RESP 16; O2SAT 98
== END 2024-09-22 15:09 | disposition home or self-care (01) ==
PROVIDERS: Emergency Provider Registered Nurse Emergency; PCP Family Medicine
DX: U07.1 COVID-19 (principal); S80.01XA Contusion of right knee, initial encounter; W22.8XXA Striking against or struck by other objects, initial encounter; Y93.89 Activity, other specified; Y92.820 Desert as the place of occurrence of the external cause; Y92.810 Car as the place of occurrence of the external cause
CPT/HCPCS: 73562; 99284; 71046; 99283

== ENCOUNTER 2024-12-25 16:40 | Outpatient (REF) | payer MEDICARE, SELFPAY ==
[2024-12-25 16:20] LABS: Anion Gap 6.6 mmol/L (3-11); BUN 15 mg/dL (7-18); CO2 30.4 mmol/L (21.0-32.0); Calcium 9.9 mg/dL (8.5-10.1); Chloride 105 mmol/L (98-107); Estimated GFR 45.19 (mL/min/1.73m2); Glucose 96 mg/dL (74-106); LDL CHOLESTEROL 70 mg/dL (<100); Potassium 4.2 mmol/L (3.5-5.1); Sodium 142 mmol/L (136-145)
[2024-12-25 19:04] LABS: Hemoglobin A1C 5.5 % (<5.7)
== END 2024-12-25 16:41 | disposition home or self-care (01) ==
LOC: NCHCN 16:40
PROVIDERS: PCP Family Medicine; Visit Provider Family Medicine
DX: I10 Essential (primary) hypertension (principal)
CPT/HCPCS: 80048; 83721; 83036

== ENCOUNTER 2025-02-20 15:32 | Emergency (ER) | payer MEDICARE, SELFPAY ==
--- NOTE | 2025-02-20 15:30 | RT.EKG_ITS ---
APPROVED REPORT Exam: Resting ECG Reason for Exam: fall Patient Location: E HR:58 bpm ECG Measurements Heart Rate 58 AXIS SD 127 P 54 QRSd 94 QRS 18 QT 456 T 74 QTc 448 Conclusion Sinus bradycardia, rate 58 No interval abnormalities No STEMI No significant changes from prior
[2025-02-20 15:31] VITALS: BP 206/74; PULSE 95; RESP 16; TEMP 36.4; O2SAT 97
--- NOTE | 2025-02-20 15:47 | ED.GENADUL_ITS ---
Discharge Plan Disposition Patient Disposition: Home Discharge Details Clinical Impression: Fall, Hypokalemia, Hypertension Primary Care Provider: Darwin Short ED Provider: Aliya Archer Home Meds and New Rx's Prescriptions: No Action rosuvastatin 10 mg tablet 10 mg PO DAILY olmesartan 40 mg tablet 40 mg PO DAILY acetaminophen 500 mg tablet 1,000 mg PO TID Qty: 90 3RF albuterol sulfate 90 mcg/actuation HFA aerosol inhaler 2 puff IH QID PRN (Reason: shortness of breath or wheezing) Qty: 8 0RF Rx Instructions: Take 1 to 2 puffs every 4-6 hours as needed for shortness of breath, cough or wheezing Discharge Instructions Additional Instructions: Your blood pressure was noted to be very elevated today. I recommend that you discuss blood pressure control with your primary care provider, as uncontrolled blood pressure can lead to many negative outcomes such as stroke, heart attacks, kidney failure, and other organ injury. Your workup today was very reassuring after your fall. A head CT and neck CT were performed, as well as an x-ray of your hip/pelvis. There were no acute abnormalities. I recommend you call your primary care provider first thing in the morning to schedule follow-up appointment to discuss safety at home. At home safety evaluation may be helpful. Your potassium was noted to be slightly low today. I recommend that you increase your consumption of bananas, avocados, carrots, raisins, potatoes, milk, and whole-wheat bread. Return to emergency care if you develop episodes of passing out, have new fall/head injuries, headaches, chest pains, difficulty breathing, or if you are very worried and need to be rechecked again immediately. Referrals: Darwin Short MD [Primary Care Provider, Medicine] Discharge Data Discharge Date/Time-TO BE ENTERED AT DEPARTURE: 02/20/25 18:04 HPI General Date/Time Provider Initiated Documentation: 02/20/25 15:42 . HPI Narrative: Abiola is an 85-year-old female presents to the emergency department today for evaluation of unwitnessed fall. She is brought in via EMS. She reports left hip and buttock pain after the fall, denies other injuries. She was able to get up without difficulty after the fall, uses a cane to ambulate. She reports that she fell while opening door, cause unknown (story does not line up, as she says she was going to see if the ambulance was here, says she only fell once, but is unable to piece together what happened). Says that she hit her head, but is not sure where she hit her head on. She denies inciting symptoms such as chest pain or shortness of breath, recent symptoms of illness such as fever/chills, cough, congestion, sore throat. Denies back pain, headache, vision changes, dizziness, neck pain, chest pain, difficulty breathing, abdominal pain, nausea/vomiting, change in bowel or bladder function, change in p.o. intake, extremity weakness or pain, or extremity numbness. She is not on blood thinners. PAST SURGICAL HISTORY: Knee replacement surgery. Related Data Home Medications ?Medication ?Instructions ?Recorded ?Confirmed olmesartan 40 mg tablet 40 mg PO DAILY 02/10/2308/14 rosuvastatin 10 mg tablet 10 mg PO DAILY 02/10/2308/14 acetaminophen 500 mg tablet 1,000 mg (2 x 500 mg) PO T ID #90 10/05/23 09/22/24 tabs albuterol sulfate 90 mcg/actuation 2 puff inhalation Q ID PRN 09/22/24 aerosol inhaler shortness of breath or wheez ing #8 grams Previous Rx's ?Medication ?Instructions ?Recorded acetaminophen 500 mg tablet 1,000 mg (2 x 500 mg) PO T ID #90 10/05/23 tabs albuterol sulfate 90 mcg/actuation 2 puff inhalation Q ID PRN 09/22/24 aerosol inhaler shortness of breath or wheez ing #8 grams Allergies Allergy/AdvReac Type Severity Reaction Status Date / Time Sulfa (Sulfonamide Allergy Severe Anaphylaxsi Unverified 02/20/25 15:40 Antibiotics) s metoprolol Allergy Unknown UNKNOWN Unverified 02/20/25 15:40 aspirin AdvReac Unknown UNKNOWN Unverified 02/20/25 15:40 ibuprofen AdvReac Unknown UNKNOWN Unverified 02/20/25 15:40 General Stated Complaint: AMS/LOC SHYANNE: 3 Exam Narrative Exam Narrative: General Appearance: Normal. Very well-appearing, conversational. Vital signs: Hypertension noted, BP 206/74 HEENT: Atraumatic, no abrasions, tenderness or deformities. No raccoon eyes or Rangel sign. No dental damage noted Respiratory: Easy work of breathing, clear lung sounds bilaterally. Cardiac: Regular heart sounds, regular rate and rhythm. Back, Musculoskeletal: No C-spine, T-spine, or L-spine tenderness to step- off/deformity. Mild tenderness left buttock and left anterior/lateral hip. No obvious ecchymosis. Ambulates without difficulty using cane at baseline. Neurological: Alert and oriented x4, 5/5 muscle strength upper and lower extremities, normal gait with cane. Normal facial strength Skin: Warm and dry, no rash. Psychiatric: Normal. Course Vital Signs Vital signs: Vital Signs Temperature 36.4 C 02/20/25 15:31 Pulse 95 H 02/20/25 15:31 Respiratory Rate 16 02/20/25 15:31 Blood Pressure 206/74 H 02/20/25 15:31 Pulse Oximetry 97 02/20/25 15:31 Temperature 36.4 C 02/20/25 15:31 Temperature Source Oral 02/20/25 15:31 Pulse 95 H 02/20/25 15:31 Respiratory Rate 16 02/20/25 15:31 Blood Pressure 206/74 H 02/20/25 15:31 Pulse Oximetry 97 02/20/25 15:31 Medical Decision Making Initial Assessment: 85-year-old female presented to ED via EMS after fall. Unclear cause of fall. Currently reporting only mild tenderness left buttock and left anterior/lateral hip. Ambulates without difficulty using cane at baseline. As patient is able to ambulate, low suspicion for hip fracture. However, will obtain head and neck CT due to age and history of trauma, as well as baseline labs as patient is unable to report because of fall to rule out anemia or significant electrolyte imbalance. I independently interpreted the following tests: EKG shows sinus bradycardia, rate 58, normal intervals, no changes consistent with acute ischemia. CBC, BMP reassuring. Mild hypokalemia, potassium 3.4. No acute abnormality noted on head and C-spine CT or hip/pelvis x-ray. This was confirmed by radiologist Dr. Munoz, who called with results. Hypertension is noted, patient denies associated symptoms. Daughter reports that Abiola did not take her antihypertensives today (current med list was not updated to include these, but they include lisinopril and another one). Final Assessment: Overall workup today reassuring. Recommend close follow-up with PCP for management of hypertension and safety measures at home. Reviewed discharge instructions with patient, including importance of follow-up with PCP, hypertension management, and red flags indicating need for return to emergency care. She voices agreement plan of care Patient consented to the use of [facility] Medical Records Medical records narrative: Did review patient's 6-month follow-up office visit note with PCP from 12/25/2024, patient has history of HTN, CKD, HLD, and multiple valvular heart disease with valve replacement. She did admit to memory issues and dizziness, especially while walking around outside. She is not on any anticoagulation. Imaging Data Radiologic Study: Radiologist's impression: Exam(s) XR HIP LT COMPLETE AP PELVIS EXAM: XR HIP LT COMPLETE AP PELVIS CLINICAL HISTORY: L hip/buttock pain after fall. TECHNIQUE: 2D digital imaging was performed. COMPARISON: CT CT ABDOMEN PELVIS W from 02/24/2021 CR XR HIP RT COMPLETE AP PELVIS from 10/04/2022 FINDINGS: 3 views: AP view of the pelvis and 2 additional views of the left hip There is no evidence of pelvic nor hip fracture. Bone density is normal. There are only mild degenerative changes in the hip joints, approximately equal bilaterally. Sacroiliac joints appear unremarkable. There is a benign appearing sclerotic non expansile bone lesion noted in the left hemipelvis just above the left ischial tuberosity, similar to previous. IMPRESSION: No acute osseous findings in the pelvis and hips. Radiologic Study #2: Radiologist's impression: Exam(s) CT HEAD CERVICAL SPINE WO EXAM: CT HEAD CERVICAL SPINE WO CLINICAL HISTORY: unwitnessed fall, ? hit head. TECHNIQUE: Imaging Protocol: Axial computed tomography images with coronal and sagittal reformatted images were created and reviewed COMPARISON: CT CT HEAD WO/W from 01/11/2024 FINDINGS: BRAIN: There are no skull fractures nor fluid in the visualized paranasal sinuses. There is no evidence of intracranial hemorrhage, mass effect, or shift of midline structures. There are no extra-axial fluid collections. The ventricles are not enlarged or shifted and there is no blood within the ventricular system nor within the basal cisterns. There is symmetrical bilateral periventricular hypodensity consistent with chronic small vessel disease, similar to previous. CERVICAL SPINE: There is no evidence of fracture nor significant listhesis. No significant prevertebral soft tissue swelling. There is mild disc space narrowing at C5-6 level and there are small Luschka joint osteophytes evident at this level. C6-7 as well as the other disc spaces exhibit normal height. There are only mild degenerative changes in the facet joints. There is no significant facet joint malalignment. No significant osseous lesions evident. IMPRESSION: No acute intracranial findings on this noninfused CT scan of the brain. No evidence of cervical spine fracture, malalignment, nor acute compromise of the cervical spinal canal. PFSH All Active Problems (Updated 02/20/25 @ 17:49 by Aliya Mcgee) Hypertension (Chronic) Hypokalemia (Acute) Fall (Acute) COVID-19 (Acute) History of total right knee replacement (Acute 10/05/23) 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 (Acute) Ulcer of left lower leg (Acute) Bursitis of right shoulder (Acute) Tubular adenoma of colon (Acute) Adenomatous colon polyp (Acute) Diverticula of colon (Acute) Chronic constipation (Acute) Pain of soft tissue of extremity (Acute) mid ant kaye of LLE Superficial thrombophlebitis of left leg (Acute) Ganglion, right wrist (Acute 01/17/17) Primary osteoarthritis of left hip (Acute 10/29/15) Primary osteoarthritis of left knee (Acute 10/29/15) Subacromial impingement of right shoulder (Acute 08/01/17) Trochanteric bursitis, left hip (Acute 10/29/15) Urinary tract infection (Acute) Primary osteoarthritis of right knee (Acute) Injection: 08/06/22; 03/29/2022; 08/14/2021; 12/01/2020; DVT (deep venous thrombosis) (Chronic) S/P right rotator cuff repair (Acute 01/31/19) Dr. Ramos Neuralgia (Chronic) R>L ear Migraine headache with aura (Chronic) Chronic daily headache (Chronic) Medical History Aortic stenosis mild-moderate Cataracts, bilateral GERD (gastroesophageal reflux disease) Mild cognitive impairment Osteoarthritis Hypertension Hyperlipemia Surgical History 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 History of colonoscopy with polypectomy (~03/06/21) S/P carpal tunnel release S/P cataract extraction Hiatal hernia H/O: hysterectomy S/P eye surgery R retina pucker Trigger Finger release Diaphragmatic Hernia Repair Cholecystectomy Family History Father Heart disease Hypertension Mother Diabetes Heart disease Hypertension Social History Smoking/Tobacco Use Status: Former Tobacco Use Quit Date: 05/23/89 Smoking risk assessment performed?: Yes Alcohol Intake: never Details: DOES NOT DRINK Drug use: Never Substance use type: does not use Household members: spouse Housing: house current occupation: [employer] Current gender identity: female What is your relationship status?: Panel score (0-1 are the most socially isolated patients): 1 Seatbelt use: always Do you feel safe at home: Yes Do you feel safe in your relationship?: Yes
--- NOTE | 2025-02-20 16:00 | DI.RAD_ITS ---
Exam(s) XR HIP LT COMPLETE AP PELVIS EXAM: XR HIP LT COMPLETE AP PELVIS CLINICAL HISTORY: L hip/buttock pain after fall. TECHNIQUE: 2D digital imaging was performed. COMPARISON: CT CT ABDOMEN PELVIS W from 02/24/2021 CR XR HIP RT COMPLETE AP PELVIS from 10/04/2022 FINDINGS: 3 views: AP view of the pelvis and 2 additional views of the left hip There is no evidence of pelvic nor hip fracture. Bone density is normal. There are only mild degenerative changes in the hip joints, approximately equal bilaterally. Sacroiliac joints appear unremarkable. There is a benign appearing sclerotic non expansile bone lesion noted in the left hemipelvis just above the left ischial tuberosity, similar to previous. IMPRESSION: No acute osseous findings in the pelvis and hips. DATA REPOSITORY: RADIATION DOSE DELIVERED:
--- NOTE | 2025-02-20 16:00 | DI.CT_ITS ---
Exam(s) CT HEAD CERVICAL SPINE WO EXAM: CT HEAD CERVICAL SPINE WO CLINICAL HISTORY: unwitnessed fall, ? hit head. TECHNIQUE: Imaging Protocol: Axial computed tomography images with coronal and sagittal reformatted images were created and reviewed COMPARISON: CT CT HEAD WO/W from 01/11/2024 FINDINGS: BRAIN: There are no skull fractures nor fluid in the visualized paranasal sinuses. There is no evidence of intracranial hemorrhage, mass effect, or shift of midline structures. There are no extra-axial fluid collections. The ventricles are not enlarged or shifted and there is no blood within the ventricular system nor within the basal cisterns. There is symmetrical bilateral periventricular hypodensity consistent with chronic small vessel disease, similar to previous. CERVICAL SPINE: There is no evidence of fracture nor significant listhesis. No significant prevertebral soft tissue swelling. There is mild disc space narrowing at C5-6 level and there are small Luschka joint osteophytes evident at this level. C6-7 as well as the other disc spaces exhibit normal height. There are only mild degenerative changes in the facet joints. There is no significant facet joint malalignment. No significant osseous lesions evident. IMPRESSION: No acute intracranial findings on this noninfused CT scan of the brain. No evidence of cervical spine fracture, malalignment, nor acute compromise of the cervical spinal canal. Report called by myself to ER provider 02/20/2025 at 5:40 p.m. RADIATION DOSE DELIVERED: 1,216.78mGy.cm Total DLP DATA REPOSITORY: All CT scans at this facility are submitted to the National Radiology Data Registry (NRDR) Dose Index Registry (DIR) with the [employer] ([employer]). RADIATION OPTIMIZATION: All CT scans at this facility use at least one of these dose optimization techniques: automated exposure control; mA and/or kV adjustment per patient size (includes targeted exams where dose is matched to clinical indication); or iterative reconstruction.
[2025-02-20 16:25] VITALS: BP 197/57
[2025-02-20 16:38] VITALS: RESP 16
[2025-02-20 16:55] LABS: HCT 38.2 % (36.0-46.0); HGB 12.0 g/dL (11.2-15.7); MCH 29.0 pg (27.0-33.0); MCHC 31.4 % (32.0-36.0); MCV 92 fL (80-95); MPV 10.8 fL (8.0-11.0); Platelet Count 173 10^3/uL (130-400); RBC 4.14 10^6/uL (3.93-5.22); RDW 13.2 % (11.7-14.6); RDW-SD 44.9 fL; WBC 9.58 10^3/uL (4.4-10.8)
[2025-02-20 17:04] LABS: BUN 16 mg/dL (7-18); Calcium 9.7 mg/dL (8.5-10.1); Glucose 96 mg/dL (74-106)
[2025-02-20 17:05] LABS: Anion Gap 8.8 mmol/L (3-11); CO2 28.2 mmol/L (21.0-32.0); Chloride 107 mmol/L (98-107); Estimated GFR 49.86 (mL/min/1.73m2); Potassium 3.4 mmol/L (3.5-5.1); Sodium 144 mmol/L (136-145)
[2025-02-20 17:51] VITALS: BP 205/165; PULSE 66; O2SAT 98
[2025-02-20 17:59] VITALS: BP 205/165; PULSE 66; RESP 16; TEMP 36.4; O2SAT 98
== END 2025-02-20 18:04 | disposition home or self-care (01) ==
PROVIDERS: Emergency Provider Nurse Practitioner Family; PCP Family Medicine
DX: E87.6 Hypokalemia (principal); I10 Essential (primary) hypertension; W19.XXXA Unspecified fall, initial encounter
CPT/HCPCS: 80048; 85027; 93005; 99285; 70450; 72125; 73502; 93010; 99284